=== PATIENT | male | born 1975 | race Caucasian/White ===

== ENCOUNTER 2017-11-12 14:16 | Emergency (ER) | payer MEDICAID, SELFPAY ==
[2017-11-12 14:21] VITALS: BP 132/71; PULSE 114; RESP 18; TEMP 37.5; O2SAT 94; BMI 24.3
--- NOTE | 2017-11-12 14:45 | ED.DCSUM_ITS ---
- ER Visit Summary Date of Service: 11/12/17 Chief Complaint: Wound check History of Present Illness: The patient is a 42 M who had a repair of a prior neck fusion and a L2/L3 discectomy by Dr. Cornell at [facility] 6 days ago. He was discharged from hospital 2 days ago. Reports that he has been improving since the surgery. States that his drop foot has improved. The tingling and burning in his fingers has resolved. Reports he has neck pain that is 2 out of 10 currently and 10 out of 10 at worst. Is back pain is 2 out of 10 currently and 4 out of 10 at worst. Patient reports that he is here today because his family noticed that he had drainage from the inferior portion of his lumbar incision. He denies any complaints. No fever, chills, nausea, vomiting, or other constitutional symptoms. Physical Examination: Vitals: Stable. Afebrile. General: Well-nourished and well-developed. Head: Normocephalic atraumatic. Neck: Midline incision is clean, dry, and intact. There are dk with minimal surrounding erythema. There is no induration or fluctuance. Cardiovascular: Regular rate and rhythm. No murmurs. Respiratory: No respiratory distress. Clear to auscultation bilaterally. Abdominal: Soft, nontender, nondistended, normal bowel sounds. No guarding, rebound, or peritoneal signs. Back: Lumbar incision has mild diffuse soft tissue swelling surrounding it. There is no induration, erythema, or fluctuance. The incision itself is clean, dry, and intact. There is a small amount of serosanguineous fluid on the dressing. I am unable to express any drainage from the wound. Extremities: Nontender, no edema. Skin: Normal color, no rash. Neurologic: Alert and oriented ?3. Cranial nerves II through XII are intact. Normal strength and sensation. Psych: Normal affect. Emergency Department Course and Treatment: Patient is resting comfortably. He does not have any signs of infection on exam. He does not have any symptoms of infection by history. Treatment Plan: He will be discharged instructions to follow-up with his surgeon in 3-5 days for another exam. Return to the emergency department for any worsening symptoms. Disposition: To home in improved and stable condition. Impression: 1. Postop day #6 status post neck and back surgery. 2. Wound check. This note was generated with Dragon dictation software. It may contain incorrect words, spelling, and punctuation that were not noted in review of the chart prior to signing ED Disposition - Plan for ED Patient: Disposition: Home or Assisted Living Chief Complaint: Wound Check Instructions: ED Wound Check Post Op No Infec Referrals: Doctor,Your [STAFF PHYSICIAN] - 3-5 Days if not improving
[2017-11-12 15:05] VITALS: BP 121/68; PULSE 10; RESP 16; O2SAT 95
== END 2017-11-12 15:06 | disposition home or self-care (01) ==
PROVIDERS: Emergency Provider Emergency Medicine
DX: Z48.01 Encounter for change or removal of surgical wound dressing (principal); Z98.1 Arthrodesis status; Z72.0 Tobacco use
CPT/HCPCS: 99284

== ENCOUNTER 2018-04-14 12:38 | Emergency (ER) | payer MEDICAID, SELFPAY ==
[2018-04-14 12:38] VITALS: BP 113/69; PULSE 98; RESP 16; TEMP 36.5; O2SAT 98; BMI 24.2
[2018-04-14 12:51] VITALS: PULSE 98; RESP 18; TEMP 36.8; O2SAT 96
--- NOTE | 2018-04-14 12:51 | RAD_ITS ---
STUDY: X-RAY - RIGHT FOOT CLINICAL: Male, 43 years old. Rolled ankle, pain and discoloration at base of toes. TECHNIQUE: 3 view(s) of the foot. COMPARISON: None. FINDINGS: Normal talus, calcaneus, and tarsal bones. Normal visualized subtalar, talonavicular, calcaneocuboid, tarsal and tarsometatarsal articulations. A bifid os perineum seen lateral to the calcaneocuboid joint space. Normal metatarsi. Normal metatarsophalangeal joint of the great toe. Normal tibial and fibular sesamoid bones. Normal interphalangeal joint of the great toe. Normal phalanges of the great toe. Normal second through fifth metatarsophalangeal joints. Normal interphalangeal joints and phalanges of the lesser toes. There is minor soft tissue swelling in the forefoot. There is no demonstrated fracture. RAD/Foot min 3 Views IMPRESSION: No acute fracture of the right foot. Electronically Signed: Steven Dobbins MD at 14:03 EDT , Service support ,
--- NOTE | 2018-04-14 12:54 | ED.DCSUM_ITS ---
- ER Visit Summary Date of Service: 04/14/18 Chief Complaint: [] Right ankle injury a few days ago tripped turned ankle History of Present Illness: The patient is a 43 M [] history for upper back neck surgery, a few days ago he twisted his ankle walking down some steps has pain lateral to the ankle no other complaints no other injury his health has been stable he sees an orthopedic surgeon at [facility] Physical Examination: [] Is contusion and bruising to the lateral ankle right his foot has mild pain he is able dorsi and plantarflex Achilles, no pain of the calcaneus the tib-fib knee hip are unremarkable skin is intact strong pulses neurovascular function normal the rest exams unremarkable Test Results: [] Emergency Department Course and Treatment: [] X-ray pain management X-ray shows nothing acute he cannot take nonsteroidals he was given one [place] will discharge on 4 [place] [employer] crutches ice elevation of follow-up his [facility] orthopedic surgeons in the next few days he has been instructed in the concept of occult injury and the need for follow-up Treatment Plan: [] Disposition: [] Home stable Impression: [] Acute right ankle injury This note was generated with [employer] dictation software. It may contain incorrect words, spelling, and punctuation that were not noted in review of the chart prior to signing ED Disposition - Plan for ED Patient: Chief Complaint: Lower Extremity Injury Referrals: Care Physician,No Primary [Primary Care Provider] -
[2018-04-14 12:58] VITALS: BP 104/67; PULSE 89; RESP 18; O2SAT 97
--- NOTE | 2018-04-14 13:08 | RAD_ITS ---
STUDY: X-RAY - RIGHT ANKLE REASON FOR EXAM: Male, 43 years old. Pain and lateral swelling after injury. TECHNIQUE: 3 view(s) of the ankle. COMPARISON: None. FINDINGS: Normal visualized distal tibia and fibula. Normal medial and lateral malleoli. Normal tibiotalar articulation and ankle mortise. There is a small enthesophyte involving the posterior superior calcaneus at the site of insertion of the Achilles tendon. The visualized subtalar, talonavicular, calcaneocuboid and tarsal articulations are normal. There is no demonstrated fracture. There is mild lateral soft tissue swelling in the distal lower leg and ankle. RAD/Ankle min 3 Views IMPRESSION: Mild lateral soft tissue swelling. No demonstrated acute fracture. Electronically Signed: Steven Dobbins MD at 13:21 EDT , Service support ,
--- NOTE | 2018-04-14 14:17 | DCINST.ED_ITS ---
ED Disposition - Plan for ED Patient: Chief Complaint: Lower Extremity Injury Instructions: ED Sprain Ankle W X Ray Prescriptions: Hydrocodone Bitart/Apap 5-325 [[place] 5MG-325MG] 1 tab PO Q4H PRN PRN 2 Days #7 tab PRN Reason: Pain Referrals: Care Physician,No Primary [Primary Care Provider] -
[2018-04-14] MEDS: HYDROcodone Bitartrate/Apap 5/325 Tablet PO (14:30)
[2018-04-14 14:53] VITALS: PULSE 80; RESP 16; O2SAT 100
== END 2018-04-14 14:45 | disposition home or self-care (01) ==
PROVIDERS: Emergency Provider Emergency Medicine
DX: S99.911A Unspecified injury of right ankle, initial encounter (principal); W10.9XXA Fall (on) (from) unspecified stairs and steps, initial encounter; Y93.01 Activity, walking, marching and hiking; Y92.9 Unspecified place or not applicable
CPT/HCPCS: 73610; 73630; 99284

== ENCOUNTER 2019-05-22 17:14 | Emergency (ER) | payer MEDICAID, SELFPAY ==
[2019-05-22 17:15] VITALS: BP 134/81; PULSE 102; RESP 16; TEMP 36.6; O2SAT 98; BMI 30.8
[2019-05-22 17:32] VITALS: RESP 16
--- NOTE | 2019-05-22 17:48 | CT_ITS ---
STUDY: CT ABDOMEN AND PELVIS WITHOUT CONTRAST REASON FOR EXAM: Male, 44 years old. Right flank pain. History of prior appendectomy. RADIATION DOSAGE (If Supplied By Facility): CTDIvol = ( 14.63 ) mGy, DLP = ( 761.52 ) mGycm TECHNIQUE: Transaxial images were obtained from the dome of the diaphragm to the symphysis pubis without oral contrast, and without intravenous contrast. Sagittal and coronal images were reconstructed. Individualized dose optimization techniques were used for this CT. COMPARISON: CT of the abdomen and pelvis, June 29, 2014. FINDINGS: The visualized lung bases are unremarkable. The visualized portions of the heart are within normal limits. Normal liver. Normal gallbladder and extrahepatic biliary system. Normal spleen. Normal pancreas. Normal bilateral adrenal glands. There are multiple small nonobstructing calculi in the upper pole calyces of the right kidney. The largest measures 3 mm in size. Normal right ureter. There are nonobstructing left renal calculi in the mid and lower calyces. The largest measures 3 mm. There is no hydronephrosis. Normal left ureter. Normal visualized stomach. Normal small intestine. Normal colon. There is non-visualization of the appendix. Normal abdominal aorta. Normal inferior vena cava. Normal retroperitoneum. Normal urinary bladder. Normal prostate. No pelvic lymphadenopathy. No free air or free fluid is seen within the peritoneal cavity. Umbilical hernia of omental fat. The abdominal wall is otherwise unremarkable. There are diffuse degenerative changes of the visualized lumbar spine. There is flattening of the lumbar lordosis. There is evidence of L5 laminectomy. CT/Abdomen/Pelvis without Cont IMPRESSION: 1. Multiple bilateral renal calculi. There is resolution of the right UVJ calculus and mild obstructive uropathy seen on the prior study. 2. No evidence of acute intra-abdominal or pelvic abnormality. 3. Stable degenerative changes of the lumbar spine Electronically Signed: Jame Crowley DO at 18:28 EDT Tel [phone], Service support ,
--- NOTE | 2019-05-22 17:49 | ED.DCSUM_ITS ---
History of Present Illness Chief Complaint: Flank Pain Informant: Patient Onset: Today Context: Gradual Onset Timing: Continuous, Waxes and wanes Narrative: Patient is a 44-year-old male with history of kidney stones x4, back surgery and neck surgery presenting with right-sided flank pain. Patient states it started today. It is in his right upper back and radiates into his lower abdomen/groin. Patient states it feels like there is a pressure or fullness in his right back with intermittent episodes of sharpness. He also feels that he is only dribbling when he urinates. He denies any pain when he urinates. He denies any abnormal penile discharge or testicular pain. Patient states that this does feel similar prior kidney stones. He states that he never required instrumentation and always passed stones on his own. He states he did not take anything for pain at home. He states he tried to tough it out at home but the pain was too much so he came into the emergency room. He had episodes of vomiting. His symptoms do seem to be worse when he lays on his side and better when he lays on his back or his stomach. He denies any hematemesis. He has had normal bowel movements. He did have an episode of sweating earlier today. He denies any fever. He denies any other complaints at this time. Past Medical History - Allergies and Home Meds Allergies/Adverse Reactions: Allergies bismuth subsalicylate [From Pepto-Bismol] Allergy (Verified 05/22/19 17:15) HEAT RASH latex Allergy (Verified 05/22/19 17:15) Rash Penicillins Allergy (Verified 05/22/19 17:15) HEAT RASH Primary Care Physician: Care Physician,No Primary [Primary Care Provider] - Smoking Status: Current every day smoker Review of Systems All systems negative except as indicated General: Reports: Chills, Sweats Gastrointestinal: Reports: Abdominal pain - right flank, Nausea, Vomiting Genitourinary: Reports: - - decreased urination Physical Exam Vital Signs/Narrative: Vital Signs Temp Pulse Resp BP Pulse Ox 05/22/19 17:32 16 05/22/19 17:15 97.9 F 102 H 16 134/81 H 98 Inital Vital Signs reviewed: Yes General: Well nourished, Well developed, No Acute Distress Head: Normocephalic, Atraumatic Eyes: Perrl, EOMI ENT: Moist mucous membranes, No rhinorrhea Neck: Supple, Nontender Cardiovascular: Regular rate, Regular rhythm, No murmurs Respiratory: No distress, CTA bilaterally, Chest nontender Abdomen: Soft, Nontender, Nondistended, Normal bowel sounds. Negative for: Guarding Back: Nontender, Normal Inspection. Negative for: CVA tenderness Extremities: Nontender, No edema Skin: Normal color, No rash Neurological: Alert, Oriented x3, Cranial nerves II-XII grossly intact, Normal Strength, Normal Sensation Psychological: Normal affect, Normal Mood Diagnostic/Tx/Re-eval Clinical Impression(s) from Imaging Studies Abdomen/Pelvis CT 05/22/19 17:48 IMPRESSION: 1. Multiple bilateral renal calculi. There is resolution of the right UVJ calculus and mild obstructive uropathy seen on the prior study. 2. No evidence of acute intra-abdominal or pelvic abnormality. 3. Stable degenerative changes of the lumbar spine Electronically Signed: Jame Crowley DO at 18:28 EDT Tel [phone], Service support , Laboratory Data 05/22/19 05/22/19 05/22/19 17:50 17:50 18:46 WBC 8.3 RBC 4.62 Hgb 14.7 Hct 44.1 MCV 95.5 H MCH 31.8 MCHC 33.3 RDW Std Deviation 45.6 H RDW Coeff of Darvin 13.0 Plt Count 277 MPV 8.9 Immature Gran % (Auto) 0.200 Neut % (Auto) 79.6 H Lymph % (Auto) 13.7 L Weakley % (Auto) 5.2 Eos % (Auto) 1.3 Baso % (Auto) 0.0 Absolute Neuts (auto) 6.6 Absolute Lymphs (auto) 1.14 Nucleated RBC % 0 Sodium 140 Potassium 3.6 Chloride 109 H Carbon Dioxide 26.0 Anion Gap 5 BUN 14 Creatinine 0.88 Estim Creat Clear Calc 104.72 Est GFR (MDRD) Af Amer 122 Est GFR (MDRD) Non-Af 101 BUN/Creatinine Ratio 15.9 Glucose 101 Calcium 8.4 L Total Bilirubin 0.40 AST 24 ALT 38 Alkaline Phosphatase 100 Total Protein 7.6 Albumin 3.5 Globulin 4.1 Albumin/Globulin Ratio 0.9 Lipase 62 L Urine Color Yellow Urine Clarity Sl. Cloudy Urine pH 6.0 Ur Specific [place] 1.015 Urine Protein Negative Urine Glucose (UA) Normal Urine Ketones Negative Urine Occult Blood 25 H Urine Nitrite Negative Urine Bilirubin Negative Urine Urobilinogen Normal Ur Leukocyte Esterase 100 H Urine RBC 10-25 SEEN Urine WBC 25-50 SEEN Ur Squamous Epith Cells 0-5 SEEN Urine Bacteria 0 SEEN Urine Mucus 0 SEEN Diagnostic Data Abdomen/Pelvis CT 05/22/19 17:48 IMPRESSION: 1. Multiple bilateral renal calculi. There is resolution of the right UVJ calculus and mild obstructive uropathy seen on the prior study. 2. No evidence of acute intra-abdominal or pelvic abnormality. 3. Stable degenerative changes of the lumbar spine Electronically Signed: Jame Crowley DO at 18:28 EDT Tel [phone], Service support , - Medical Decision Making [place] is evaluated for right flank pain. He appears nontoxic and in no acute distress. He is mildly tachycardic. Patient is given IV fluids, Zofran and morphine. He has improvement of his symptoms with this. Urinalysis does show leukoesterase and some blood. He has normal kidney function. CT does not show current ureterolithiasis. It is possible he recently passed a stone. Patient is given a dose of IV Toradol. Patient is encouraged to follow-up with a primary care physician. He states he does not have one currently and he will be referred to one. He is discharged home with a course of Zofran and Motrin for pain control. Patient is well-appearing on reevaluation and agreeable with this plan. Patient is counseled on signs and symptoms requiring return to the emergency room. Patient verbalizes agreement and understand this plan. Patient discharged home in stable and improved condition. ED Disposition - Plan for ED Patient: Disposition: Home or Assisted Living Diagnosis: Right flank pain Instructions: KIDNEY STONE, Passed Prescriptions: Ibuprofen [Motrin] 600 mg PO Q8H PRN PRN #20 tab PRN Reason: Pain Prescription Printed Ondansetron [Zofran Odt] 4 mg PO Q8H PRN PRN #10 tab PRN Reason: Nausea Prescription Printed Referrals: Janice Tang MD [COURTESY STAFF PHYSICIAN] - Additional Instructions: Drink Plenty of fluids. Return to emergency room if you develop worsening symptoms. It is very important he follow-up with a primary care doctor.
[2019-05-22] MEDS: Ondansetron 4 MG/2 ML Vial IV (17:59)
[2019-05-22] MEDS: 0.9% Normal Saline 1,000 ML 1000 ML IV (17:59)
[2019-05-22 18:00] LABS: Absolute Lymphocyte Count 1.14 X10^3/uL (0.83-4.51); Absolute Neutrophil Count 6.6 X10^3/uL (2.0-7.7); Eosinophil# 0.11 X10^3/uL; Eosinophils% 1.3 % (0-5); Hematocrit 44.1 % (40-54); Hemoglobin 14.7 g/dL (13.0-16.5); Lymphocyte # 1.14 X10^3/ul (4.0); Lymphocyte % 13.7 % (19-41); Mean Corp Hgb Conc 33.3 g/dL (32-36); Mean Corpuscular Hgb 31.8 pg (27.0-32.0); Mean Corpuscular Volume 95.5 fL (80-94); Mean Platelet Vol. 8.9 fl (6.2-12.0); Monocyte# 0.43 X10^3/uL; Monocyte% 5.2 % (0-10); NRBC Flagged by Analyzer 0 % (0-5); Neutrophil # 6.62 X10^3/uL (2.7-7.7); Neutrophil % 79.6 % (47-70); Platelet Count 277 K/mm3 (150-450); RBC Distribution Width SD 45.6 fl (35.1-43.9); Red Blood Count 4.62 M/mm3 (4.6-6.2); White Blood Count 8.3 K/mm3 (4.4-11.0)
[2019-05-22] MEDS: Morphine 4 MG/ML Syringe IV (18:01)
[2019-05-22 18:22] LABS: ALB/GLOB Ratio 0.9 RATIO (0.9-2.4); AST(SGOT) 24 U/L (15-37); Alanine Aminotransfer ALT/SGPT 38 U/L (16-61); Albumin, Serum 3.5 g/dL (3.2-5.0); Alkaline Phosphatase 100 U/L (45-117); Anion Gap 5 (5-15); BUN 14 mg/dL (7-18); BUN/Creat Ratio 15.9 RATIO (10-20); Calcium,Total 8.4 mg/dL (8.5-10.1); Chloride 109 mmol/L (98-107); Creatinine, Serum 0.88 mg/dL (0.70-1.30); EST Glomerular Filtration Rate 101 mL/min (>60); Est Glom Filt Rate - Afr Amer 122 mL/min (>60); Estimated Creatinine Clearance 104.72 ml/min; Globulin 4.1 g/dL (2.2-4.2); Glucose 101 mg/dL (74-106); Lipase 62 U/L (73-393); Potassium 3.6 mmol/L (3.5-5.1); Protein, Total 7.6 g/dL (6.4-8.2); Sodium Level 140 mmol/L (136-145)
[2019-05-22 18:55] LABS: Bacteria 0 SEEN /hpf (None Seen); Mucous, Urine 0 SEEN /hpf (<or=2+)
[2019-05-22 19:03] LABS: Color, Urine Yellow (Yellow); Glucose, Dipstick Normal (Normal); Ketone-Dipstick Negative (Negative); Leukocyte Esterase-Dipstick 100 /ul (Negative); Nitrite-Dipstick Negative (Negative); Occult Blood-Urine 25 /ul (Negative); Protein-Dipstick Negative (Negative); Specific Gravity, Urine 1.015 (1.002-1.030); Urine Bilirubin Dipstick Negative (Negative); Urine Clarity Sl. Cloudy (Clear); Urine Urobilinogen Normal (Normal)
[2019-05-22 19:12] LABS: Red Blood Cells-Urine 10-25 SEEN /hpf (0-5); White Blood Cells 25-50 SEEN /hpf (0-5)
[2019-05-22 19:13] LABS: Squamous Epithelial Cells - UA 0-5 SEEN /hpf (0-5)
[2019-05-22] MEDS: Ketorolac 15 MG/ML Vial IV (19:39)
[2019-05-22 19:41] VITALS: RESP 16
[2019-05-22 20:19] VITALS: BP 124/70; PULSE 72; RESP 16; O2SAT 100
== END 2019-05-22 20:19 | disposition home or self-care (01) ==
PROVIDERS: Emergency Provider Emergency Medicine
DX: R10.31 Right lower quadrant pain (principal); F17.200 Nicotine dependence, unspecified, uncomplicated; Z87.442 Personal history of urinary calculi
CPT/HCPCS: 74176; 80053; 81001; 83690; 85025; 96361; 96374; 96375; 99283; J7030; A4216; J2405

== ENCOUNTER 2019-06-04 16:36 | Emergency (ER) | payer MEDICAID, SELFPAY ==
[2019-06-04 16:37] VITALS: BP 129/75; PULSE 96; RESP 16; TEMP 36.2; O2SAT 99; BMI 31.6
[2019-06-04 17:46] VITALS: O2SAT 97
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
--- NOTE | 2019-06-04 17:50 | RAD_ITS ---
STUDY: X-RAY - RIGHT FOOT CLINICAL: Male, 44 years old. Pain TECHNIQUE: 3 view(s) of the foot. COMPARISON: None. FINDINGS: Normal talus, calcaneus, and tarsal bones. Normal visualized subtalar, talonavicular, calcaneocuboid, tarsal and tarsometatarsal articulations. Normal metatarsi. Normal metatarsophalangeal joint of the great toe. Normal tibial and fibular sesamoid bones. Normal interphalangeal joint of the great toe. Normal phalanges of the great toe. Normal second through fifth metatarsophalangeal joints. Normal interphalangeal joints and phalanges of the lesser toes. The soft tissue structures are unremarkable. RAD/Foot min 3 Views IMPRESSION: Normal x-ray examination of the foot. Electronically Signed: Marciano Olivares DO at 19:10 EDT Tel [phone], Service support ,
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
[2019-06-04] MEDS: HYDROcodone Bitartrate/Apap 5/325 Tablet PO (17:59)
[2019-06-04] MEDS: Diphth,Pertuss(Acell),Tet Vac 0.5 ML Vial IM (19:04)
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
== END 2019-06-04 19:40 | disposition home or self-care (01) ==
LOC: ED 18:00
PROVIDERS: Emergency Provider Emergency Medicine
DX: S40.012A Contusion of left shoulder, initial encounter (principal); S80.11XA Contusion of right lower leg, initial encounter; V09.9XXA Pedestrian injured in unspecified transport accident, initial encounter; Y93.89 Activity, other specified; Z72.0 Tobacco use
CPT/HCPCS: 71250; 72125; 73030; 73140; 73564; 73630; 90471; 90715; 99283

== ENCOUNTER 2022-04-03 18:42 | Emergency (ER) | payer MEDICAID, SELFPAY ==
[2022-04-03 18:43] VITALS: BP 116/84; PULSE 120; RESP 18; TEMP 36.4; O2SAT 97; BMI 26.3
--- NOTE | 2022-04-03 18:55 | EX.ED.DYSGE1 ---
HPI History of Present Illness Chief Complaint: Abscess Detail of Chief Complaint: Wound to right posterior thigh x4 5 days Informant: patient Narrative Narrative: Patient presents to the emergency department with a wound to the right posterior thigh x4 5 days. Patient thinks that maybe he was bitten by a brown recluse spider although he never did see a spider. Patient states that he had fever at home up to 104. Patient states that the wound opened up and drained some green debris. He had leftover clindamycin from a dental infection that he has we start taking clindamycin twice a day. Patient was concerned about possibly getting septic. Patient does admit to occasional methamphetamine use that he snorts but does not use IV drugs. Patient denies injecting into the wound. Prior similar symptoms: No PFSH PFSH Home Medications gabapentin 300 mg capsule 300 mg PO DAILY 05/22/19 [History Last Taken 06/04/19] ibuprofen 600 mg tablet 600 mg PO Q8H PRN PRN Pain #20 tabs 05/22/19 [Rx Last Taken 06/03/19] clindamycin HCl 300 mg capsule (Cleocin HCl) 300 mg PO Q6H #40 CAPSULES 04/03/22 [Rx Last Taken Unknown] Allergy/AdvReac Type Severity Reaction Status Date / Time bismuth subsalicylate Allergy HEAT RASH Verified 04/03/22 18:42 [From Pepto-Bismol] latex Allergy Rash Verified 04/03/22 18:42 Penicillins Allergy HEAT RASH Verified 04/03/22 18:42 Social History Smoking Status: Current every day smoker tobacco type: cigarettes ROS ROS ED Review of Systems ROS Unobtainable: other Constitutional Constitutional ED: Reports lethargy; Denies chills, fever(s), sweats or weight loss Eyes Eyes: Denies blurry vision, change in vision or diplopia ENT ENT ED: Denies rhinorrhea or sore throat Cardiovascular Cardiovascular: Reports chest pain and racing heartbeat; Denies orthopnea Respiratory/Chest Respiratory/Chest: Reports dyspnea and dyspnea on exertion; Denies cough, orthopnea or sputum Gastrointestinal Gastrointestinal: Denies abdominal pain, diarrhea, nausea or vomiting Genitourinary Genitourinary ED: Denies dysuria, hematuria or urinary frequency Musculoskeletal Musculoskeletal: Denies arthralgias, back pain, myalgias or neck pain Integumentary Reports other Details: Wound to the right posterior thigh ; Denies abscess, Abrasions or rash Neurologic Neurologic: Denies headache(s) or weakness Psychiatric Psychiatric: Denies anxiety, depression or suicidal thoughts Endocrine Endocrinology: Denies polydipsia, polyphagia or polyuria Hematologic/Lymphatic Hematologic/Lymphatic: Denies easy bleeding, easy bruising or lymphadenopathy Allergic/Immunologic Allergic/Immunologic ED: Denies mouth swelling, tongue swelling or urticaria EXAM Physical Exam Const Vital Signs: 04/03/22 18:43 Temperature 97.5 F L Temperature Source Temporal Pulse Rate 120 H Respiratory Rate 18 Blood Pressure 116/84 H Blood Pressure Mean 94 Pulse Ox 97 Oxygen Delivery Method Room Air Positive well nourished and well developed General Appearance ED: well developed and NAD HEENT Reports TM's clear and moist mucous membranes normocephalic and atraumatic; Negative for trauma or tenderness Tympanic Membrane ED: Yes TM's clear Eyes PERRL and EOMs intact bilaterally General Eye ED: Negative for pale conjunctiva or scleral icterus Neck no lymphadenopathy, supple and no JVD General: Negative for tenderness Chest Wall inspection of chest normal and palpation of chest normal Chest: Negative for tenderness Resp normal respiratory effort and clear to auscultation bilaterally Effort and Inspection: Negative for respiratory distress or pain with movement Auscultation: Negative for rhonchi, wheezes or diminished lung sounds Cardio regular rate, regular rhythm, S1 normal heart sound, S2 normal heart sound and no murmurs Peripheral Pulses: pulses 2+ throughout GI normal to inspection, nondistended, normoactive bowel sounds, soft to palpation, non-tender, non-distended and no masses Back/Spine no CVA tenderness and no thoracic nor lumbar tenderness Extremity Extremity Narrative: Right posterior thigh-patient has a small wound/skin defect that is relatively superficial measuring approximately 1 cm in diameter. There is no purulent drainage noted at this time. There is no significant cellulitic changes noted. Underneath the subcutaneous tissue proximal to this there is a some firm induration measuring approximately 2 cm in diameter. General Extremety ED: Negative for edema General Extremity: Negative for edema Neuro oriented x3, CN's II-XII intact bilaterally, no sensory deficits noted and gait normal Sensorium / Orientation: awake, alert, oriented to person, oriented to place and oriented to time Motor Exam: strength 5/5 throughout and strength abnormal Psych mental status grossly normal Skin no rashes or lesions noted and no wounds MDM MDM MDM Narrative Medical decision making narrative: I did send off a wound culture. Patient to continue with clindamycin and I will give him enough to have clindamycin 4 times a day for 10 days. The wound is already drained and I do not feel there is any other indication to perform further I&D at this time. Patient is afebrile and otherwise looks well. Patient will be given referral to primary care physician for follow-up. He is advised to return if increasing pain, redness, swelling, fever, or condition worsen anyway. Suspect patient likely had an abscess that opened up and drained and is well on its way to healing. Discharge Plan Triage Chief Complaint: Abscess ED Provider: Yolis Reynoso Dx/Rx/DC Orders Instructions: ED Abscess Antibiotic Treatment Only Prescriptions: New clindamycin HCl [Cleocin HCl] 300 MG capsule 300 mg PO Q6H Qty: 40 0RF No Action gabapentin 300 MG capsule 300 mg PO DAILY Label Comments: take 1 capsule by mouth EVERY NIGHT AND GRADUALLY INCREASE TO THREE TIMES A DAY ibuprofen 600 MG tablet 600 mg PO Q8H PRN PRN (Reason: Pain) Qty: 20 0RF Primary Care Provider: Care Physician,No Primary Referrals: Luis Alberto Contreras MD [STAFF PHYSICIAN] - 3-5 Days Care Physician,No Primary [Primary Care Provider] - Disposition Disposition: Home, Self Care
== END 2022-04-03 19:23 | disposition home or self-care (01) ==
PROVIDERS: Emergency Provider Emergency Medicine; Visit Provider Emergency Medicine
DX: L02.415 Cutaneous abscess of right lower limb (principal); F17.210 Nicotine dependence, cigarettes, uncomplicated
CPT/HCPCS: 87070; 87077; 87186; 87205; 99283

== ENCOUNTER 2022-06-06 12:11 | Emergency (ER) | payer MEDICAID, SELFPAY ==
[2022-06-06 12:11] VITALS: BP 136/94; PULSE 89; RESP 16; TEMP 36.6; O2SAT 100; BMI 26.6
--- NOTE | 2022-06-06 12:56 | EDS_ITS ---
HPI HPI - GI History of Present Illness Chief Complaint: Flank Pain Informant: patient Abdominal Pain/Flank Pain Onset: Today Context: Sudden Onset Timing: Intermittent Location: Right Flank Current Severity: Gone Maximum Severity: Moderate Worsened by: Nothing Relieved by: Nothing Nausea/Vomiting/Emesis GI Symptom: Negative for Nausea or Vomiting Diarrhea/Melena/Hematochezia GI Symptom: Negative for Diarrhea, Melena or Hematochezia Associated Symptoms Associated Symptoms: Negative for Dysuria, Frequency, Hematuria or Urgency Narrative Narrative: 47-year-old male history of prior kidney stones x5. He has never needed any of those surgically removed. Today an hour or so ago he developed right flank pain radiating to his groin. He believes he may have passed a stone into his bladder. Currently he is pain-free. Denies any recent illness. Denies any nausea vomiting or diarrhea. Denies any fever or chills. No hematuria or dysuria. Currently is pain-free. Prior similar symptoms: Yes Recent Illness/Hospitalization: No PFSH PFSH Medical History History of kidney stones Home Medications hydrocodone-acetaminophen 5-325mg 5mg-325mg 1 tab PO Q4H PRN pain 4 days #14 tabs 06/06/22 [Rx Last Taken Unknown] Allergy/AdvReac Type Severity Reaction Status Date / Time bismuth subsalicylate Allergy HEAT RASH Verified 06/06/22 12:16 [From Pepto-Bismol] latex Allergy Rash Verified 06/06/22 12:16 Penicillins Allergy HEAT RASH Verified 06/06/22 12:16 Surgical History Hx of neck surgery Social History Smoking Status: Current every day smoker tobacco type: cigarettes ROS ROS ED ROS Narrative Right flank pain resolved. Review of Systems ROS Unobtainable: Denies due to encephalopathy Constitutional Constitutional ED: Denies chills or fever(s) ENT ENT ED: Denies ear pain Cardiovascular Cardiovascular: Denies chest pain Respiratory/Chest Respiratory/Chest: Denies cough or dyspnea Gastrointestinal Gastrointestinal: Reports abdominal pain; Denies constipation, diarrhea, melena, nausea or vomiting Genitourinary Genitourinary ED: Denies dysuria or hematuria Musculoskeletal Musculoskeletal: Denies arthralgias Integumentary Denies abscess Neurologic Neurologic: Denies headache(s) Psychiatric Psychiatric: Denies anxiety Endocrine Endocrinology: Denies polydipsia Hematologic/Lymphatic Hematologic/Lymphatic: Denies easy bleeding Allergic/Immunologic Allergic/Immunologic ED: Denies mouth swelling EXAM Physical Exam Narrative Exam Narrative: 47-year-old male no acute distress. Currently symptom-free. Vital signs stable afebrile. HEENT exam unremarkable. Neck nontender. Lungs are clear. Heart regular rhythm no murmur. Abdomen is soft nontender normal bowel sounds no peritoneal signs. Back nontender. Moving all 4 extremities. Neurovascularly intact. Const Vital Signs: 06/06/22 12:11 06/06/22 12:17 Temperature 97.8 F Temperature Source Oral Pulse Rate 89 Respiratory Rate 16 Respiratory Effort Normal Respiratory Pattern Normal Blood Pressure 136/94 H Blood Pressure Mean 108 Pulse Ox 100 Oxygen Delivery Method Room Air Positive well nourished and well developed; Negative for obese, cachectic, contractures or unkempt General Appearance ED: well developed and NAD; Negative for unkempt, cachectic, contractures, pallor or other Nutritional Appearance: Negative for cachectic or obese HEENT Reports moist mucous membranes normocephalic and atraumatic; Negative for trauma or tenderness Eyes EOMs intact bilaterally General Eye ED: Negative for pale conjunctiva or scleral icterus Neck no lymphadenopathy, supple and no JVD General: Negative for tenderness Lymph Lymphatic: Negative for other Resp normal respiratory effort and clear to auscultation bilaterally Effort and Inspection: Negative for respiratory distress Auscultation: Negative for rales, rhonchi or wheezes Cardio regular rate, regular rhythm, S1 normal heart sound, S2 normal heart sound and no murmurs Rate: Negative for bradycardia Rhythm: Negative for abnormal rhythm GI non-tender, non-distended and no masses Inspection: Negative for abdominal distention Auscultation: normoactive bowel sounds; Negative for hyperactive bowel sounds Palpation: soft; Negative for tender, guarding, rigid, hernia, mass, pulsatile mass or rebound tenderness present Back/Spine no CVA tenderness General Back: Negative for CVA tenderness Cervical Spine: Negative for cervical spine tenderness Thoracic Spine / Upper Back: Negative for thoracic spinal tenderness Lumbar Spine / Lower Back: Negative for lumbar spinal tenderness Extremity full ROM General Extremety ED: Negative for edema or tenderness General Extremity: Negative for edema Neuro CN's II-XII intact bilaterally and moves all extremities Sensorium / Orientation: alert, oriented to person, oriented to place and oriented to time; Negative for orientation impaired, confused, lethargic or stuporous Motor Exam: strength 5/5 throughout Psych mental status grossly normal and thought process normal Appearance: Negative for unkempt Attitude: No agitated Mood & Affect: Negative for depressed, anxious or tearful Skin no wounds General Skin Exam: Negative for jaundice or pallor Lesions: no lesions Rashes: no rashes Trauma: Negative for abrasion Nails: Negative for discolored MDM MDM MDM Narrative Medical decision making narrative: 47-year-old right flank pain with a history of prior kidney stones. Currently is pain-free. CAT scan and urinalysis being obtained. He does not need any medications at this time. Repeat exam at 3:18 PM patient doing well. Pain-free. We went over his test results of CAT scan and urine will be discharged home. [place] for pain as needed. And Motrin. Lab Data Attestation: I reviewed the patient's lab results. Lab results narrative: Urinalysis shows 250 occult blood 25-50 red cells on microscopic. No white cells, no nitrates and no bacteria. CAT scan shows a proximal 3 mm calculus in the right ureter with mild hydronephrosis and hydroureter. Multiple bilateral renal stones. Labs: Laboratory Results - last 24 hr 06/06/22 13:40 Urine Color Yellow Urine Clarity Sl. Cloudy Urine pH 6.0 Ur Specific [place] 1.015 Urine Protein 30 H Urine Glucose (UA) Normal Urine Ketones Negative Urine Occult Blood 250 H Urine Nitrite Negative Urine Bilirubin Negative Urine Urobilinogen Normal Ur Leukocyte Esterase 25 H Urine RBC 25-50 SEEN Urine WBC 0 SEEN Ur Squamous Epith Cells 0 SEEN Urine Bacteria 0 SEEN Urine Mucus 0 SEEN Radiography Diagnostic Testing: Clinical Impression(s) from Imaging Studies Abdomen/Pelvis CT 06/06/22 13:02 IMPRESSION: 3 mm calculus in the proximal portion of the right ureter causing mild degree of right hydronephrosis and proximal right hydroureter. Multiple bilateral nonobstructive intrarenal calculi. Electronically Signed: Jay Palomo MD at 13:34 EDT , Discharge Plan Triage Chief Complaint: Flank Pain ED Provider: George Covarrubias Dx/Rx/DC Orders Clinical Impression: Acute right flank pain, Right kidney stone Instructions: ED Kidney Stone w/ Colic Prescriptions: New hydrocodone-acetaminophen 5-325 mg tablet 1 tab PO Q4H PRN (Reason: pain) 4 Days Qty: 14 0RF Primary Care Provider: Care Physician,No Primary Referrals: Tonny Henson MD [Med Staff - Active Staff] - As Needed Care Physician,No Primary [Primary Care Provider] - Activity Restrictions/Additional Instructions: Plenty of fluids and rest. You have a 3 mm stone on the right that should pass. [place] for pain and Motrin. Return if intractable pain, fever or intractable vomiting. Disposition Disposition: Home, Self Care
--- NOTE | 2022-06-06 13:02 | CT_ITS ---
STUDY: CT ABDOMEN AND PELVIS WITHOUT CONTRAST REASON FOR EXAM: Male, 47 years old. Right flank pain. History of kidney stones. RADIATION DOSAGE (If Supplied By Facility): CTDIvol = ( 8.32 ) mGy, DLP = ( 401.55 ) mGycm TECHNIQUE: Transaxial images were obtained from the dome of the diaphragm to the symphysis pubis without oral contrast, and without intravenous contrast. Sagittal and coronal images were reconstructed. Individualized dose optimization techniques were used for this CT. COMPARISON: Comparison is made with prior study dated 05/22/2019. FINDINGS: The visualized lung bases are unremarkable. Coronary artery calcification. Normal liver. Normal gallbladder and extrahepatic biliary system. Normal spleen. Normal pancreas. Normal bilateral adrenal glands. There are small nonobstructive bilateral intrarenal calculi. Mild degree of right hydronephrosis and proximal right hydroureter due to a 3 mm calculus in the proximal portion of the right ureter. Normal visualized stomach. Normal small intestine. Normal colon. The appendix is visualized and appears normal. Normal abdominal aorta. Normal inferior vena cava. Normal retroperitoneum. Normal urinary bladder. There is a small umbilical hernia containing fat. Straightening of the normal lumbar lordosis. Marked degree of disc space narrowing and spondylosis at the L4-L5 level. CT/Abdomen/Pelvis without Cont IMPRESSION: 3 mm calculus in the proximal portion of the right ureter causing mild degree of right hydronephrosis and proximal right hydroureter. Multiple bilateral nonobstructive intrarenal calculi. Electronically Signed: Jay Palomo MD at 13:34 EDT ,
[2022-06-06 13:48] LABS: Bacteria 0 SEEN /hpf (None Seen); Mucous, Urine 0 SEEN /hpf (<or=2+); Squamous Epithelial Cells - UA 0 SEEN /hpf (0-5); White Blood Cells 0 SEEN /hpf (0-5)
[2022-06-06 13:51] LABS: Color, Urine Yellow (Yellow); Glucose, Dipstick Normal (Normal); Ketone-Dipstick Negative (Negative); Leukocyte Esterase-Dipstick 25 /ul (Negative); Nitrite-Dipstick Negative (Negative); Occult Blood-Urine 250 /ul (Negative); Protein-Dipstick 30 mg/dl (Negative); Specific Gravity, Urine 1.015 (1.002-1.030); Urine Bilirubin Dipstick Negative (Negative); Urine Clarity Sl. Cloudy (Clear); Urine Urobilinogen Normal (Normal)
[2022-06-06 14:00] LABS: Red Blood Cells-Urine 25-50 SEEN /hpf (0-5)
== END 2022-06-06 15:21 | disposition home or self-care (01) ==
PROVIDERS: Emergency Provider Emergency Medicine; Visit Provider Emergency Medicine
DX: N13.2 Hydronephrosis with renal and ureteral calculous obstruction (principal); F17.210 Nicotine dependence, cigarettes, uncomplicated; Z87.442 Personal history of urinary calculi
CPT/HCPCS: 74176; 81001; 99285

== ENCOUNTER 2022-06-08 16:49 | Emergency (ER) | payer MEDICAID, SELFPAY ==
[2022-06-08 16:52] VITALS: BP 143/99; PULSE 84; RESP 16; TEMP 36.4; O2SAT 98; BMI 27.7
[2022-06-08 16:55] VITALS: O2SAT 98
--- NOTE | 2022-06-08 16:59 | CT_ITS ---
STUDY: CT ABDOMEN AND PELVIS WITHOUT CONTRAST REASON FOR EXAM: Male, 47 years old. right flank paii RADIATION DOSAGE (If Supplied By Facility): CTDIvol = ( 6.91 ) mGy, DLP = ( 345.51 ) mGycm TECHNIQUE: Transaxial images were obtained from the dome of the diaphragm to the symphysis pubis without oral contrast, and without intravenous contrast. Sagittal and coronal images were reconstructed. Individualized dose optimization techniques were used for this CT. COMPARISON: 06/06/2022 FINDINGS: The visualized lung bases are unremarkable. The visualized portions of the heart are within normal limits. Normal liver. Normal gallbladder and extrahepatic biliary system. Normal spleen. Normal pancreas. Normal bilateral adrenal glands. Multiple tiny nonobstructing renal calculi. Mild hydroureteronephrosis secondary to tiny calculus in the intramural portion of the ureter. Multiple tiny nonobstructing renal calculi. No evidence for renal obstruction or mass. Normal visualized stomach. Mild diffuse nonspecific ileus. No evidence for small bowel obstruction. The appendix is visualized and appears normal. Normal abdominal aorta. Normal inferior vena cava. Normal retroperitoneum. Incompletely distended thick-walled bladder likely of no significance Normal abdominal wall. Lumbar spine demonstrates degenerative changes. Lumbar spine demonstrates grade [address]/Abdomen/Pelvis without Cont IMPRESSION: Bilateral nephrolithiasis.. Mild right hydroureteronephrosis secondary to tiny calculus in the distal intramural portion of the ureter at the base of the bladder Electronically Signed: Orlando Izaguirre MD at 17:39 EDT ,
--- NOTE | 2022-06-08 17:00 | EDS_ITS ---
HPI History of Present Illness Chief Complaint: Flank Pain Detail of Chief Complaint: Right flank pain x2 days Informant: patient Onset/Context/Timing Current Severity: 06/20 Narrative Narrative: Patient presents to the emergency department complaint of right flank pain that started initially 2 days ago. Patient was seen in the emergency department here and diagnosed with a right-sided kidney stone. Patient apparently was not sent home with any pain medication. Patient states that the pain waxes and wanes in intensity. Describes it more in the posterior aspect of the lower back. Patient denies fever. Denies nausea or vomiting. He denies dysuria. Patient rates his pain a 10 out of 10. Patient has history of passing kidney stones. Prior similar symptoms: Yes PFSH PFSH Medical History History of kidney stones Home Medications hydrocodone-acetaminophen 5-325mg 5mg-325mg 1 tab PO Q4H PRN pain 4 days #14 tabs 06/06/22 [Rx Last Taken Unknown] hydrocodone-acetaminophen 5-325mg 5mg-325mg 1 tab PO Q4H PRN PRN Pain 2 days #10 TABLETS 06/08/22 [Rx Last Taken Unknown] Allergy/AdvReac Type Severity Reaction Status Date / Time bismuth subsalicylate Allergy HEAT RASH Verified 06/08/22 16:56 [From Pepto-Bismol] latex Allergy Rash Verified 06/08/22 16:56 Penicillins Allergy HEAT RASH Verified 06/08/22 16:56 Surgical History Hx of neck surgery Social History Smoking Status: Current every day smoker tobacco type: cigarettes ROS ROS ED Review of Systems ROS Unobtainable: other Constitutional Constitutional ED: Reports lethargy; Denies chills, fever(s), sweats or weight loss Eyes Eyes: Denies blurry vision, change in vision or diplopia ENT ENT ED: Denies rhinorrhea or sore throat Cardiovascular Cardiovascular: Denies chest pain, orthopnea or racing heartbeat Respiratory/Chest Respiratory/Chest: Denies cough, dyspnea, dyspnea on exertion, orthopnea or sputum Gastrointestinal Gastrointestinal: Reports abdominal pain; Denies diarrhea, nausea or vomiting Genitourinary Genitourinary ED: Denies dysuria, hematuria or urinary frequency Musculoskeletal Musculoskeletal: Reports back pain; Denies arthralgias, myalgias or neck pain Integumentary Denies abscess, Abrasions or rash Neurologic Neurologic: Denies headache(s) or weakness Psychiatric Psychiatric: Denies anxiety, depression or suicidal thoughts Endocrine Endocrinology: Denies polydipsia, polyphagia or polyuria Hematologic/Lymphatic Hematologic/Lymphatic: Denies easy bleeding, easy bruising or lymphadenopathy Allergic/Immunologic Allergic/Immunologic ED: Denies mouth swelling, tongue swelling or urticaria EXAM Physical Exam Const Vital Signs: 06/08/22 16:52 06/08/22 16:55 06/08/22 16:56 Temperature 97.6 F L Temperature Source Temporal Pulse Rate 84 Respiratory Rate 16 Respiratory Effort Normal Respiratory Pattern Normal Blood Pressure 143/99 H Blood Pressure Mean 113 Pulse Ox 98 98 Oxygen Delivery Method Room Air Room Air 06/08/22 19:11 Temperature Temperature Source Pulse Rate 87 Respiratory Rate 16 Respiratory Effort Respiratory Pattern Blood Pressure Blood Pressure Mean Pulse Ox 98 Oxygen Delivery Method Room Air Positive well nourished and well developed General Appearance ED: well developed and NAD HEENT Reports TM's clear and moist mucous membranes normocephalic and atraumatic; Negative for trauma or tenderness Tympanic Membrane ED: Yes TM's clear Eyes PERRL and EOMs intact bilaterally General Eye ED: Negative for pale conjunctiva or scleral icterus Neck no lymphadenopathy, supple and no JVD General: Negative for tenderness Chest Wall inspection of chest normal and palpation of chest normal Chest: Negative for tenderness Resp normal respiratory effort and clear to auscultation bilaterally Effort and Inspection: Negative for respiratory distress or pain with movement Auscultation: Negative for rhonchi, wheezes or diminished lung sounds Cardio regular rate, regular rhythm, S1 normal heart sound, S2 normal heart sound and no murmurs Peripheral Pulses: pulses 2+ throughout GI normal to inspection, nondistended, normoactive bowel sounds, soft to palpation, non-tender, non-distended and no masses Back/Spine no thoracic nor lumbar tenderness Back/Spine Narrative: Patient with CVA tenderness on the right. Extremity normal to inspection General Extremety ED: Negative for edema General Extremity: Negative for edema Neuro oriented x3, CN's II-XII intact bilaterally, no sensory deficits noted and gait normal Sensorium / Orientation: awake, alert, oriented to person, oriented to place and oriented to time Motor Exam: strength 5/5 throughout and strength abnormal Psych mental status grossly normal Skin no rashes or lesions noted and no wounds MDM MDM MDM Narrative Medical decision making narrative: Patient had nebulized tablets. He was medicated morphine and Zofran and Toradol. He had good pain relief initially but required a second dose of morphine. CT scan obtained showed a small stone in the base of the bladder with small amount of right hydroureter. On prior CT few days ago the stone was in the proximal ureter so it is felt that patient in the process of passing stone. Patient will be given urine strainers for home. He will be given a prescription for few [place] for pain. Patient given referral to urology for follow-up. Lab Data Attestation: I reviewed the patient's lab results. Labs: Laboratory Results - last 24 hr 06/08/22 06/08/22 06/08/22 17:00 17:00 19:09 WBC 7.9 RBC 4.34 L Hgb 14.2 Hct 41.6 MCV 95.9 H MCH 32.7 H MCHC 34.1 RDW Std Deviation 47.5 H RDW Coeff of Darvin 13.4 Plt Count 316 MPV 9.2 Immature Gran % (Auto) 0.100 Neut % (Auto) 48.2 Lymph % (Auto) 37.8 [place] % (Auto) 10.1 H Eos % (Auto) 3.3 Baso % (Auto) 0.5 Absolute Neuts (auto) 3.8 Absolute Lymphs (auto) 2.97 Nucleated RBC % 0 Sodium 141 Potassium 3.6 Chloride 105 Carbon Dioxide 30.0 Anion Gap 6 BUN 16 Creatinine 1.07 Estim Creat Clear Calc 83.46 Est GFR (MDRD) Af Amer 96 Est GFR (MDRD) Non-Af 79 BUN/Creatinine Ratio 15.0 Glucose 79 Calcium 9.6 Urine Color Yellow Urine Clarity Clear Urine pH 6.0 Ur Specific [place] 1.015 Urine Protein Negative Urine Glucose (UA) Normal Urine Ketones Negative Urine Occult Blood 50 H Urine Nitrite Negative Urine Bilirubin Negative Urine Urobilinogen Normal Ur Leukocyte Esterase Negative Radiography Diagnostic Testing: Clinical Impression(s) from Imaging Studies Abdomen/Pelvis CT 06/08/22 16:59 IMPRESSION: Bilateral nephrolithiasis.. Mild right hydroureteronephrosis secondary to tiny calculus in the distal intramural portion of the ureter at the base of the bladder Electronically Signed: Orlando Izaguirre MD at 17:39 EDT , Discharge Plan Triage Chief Complaint: Flank Pain ED Provider: Yolis Reynoso Dx/Rx/DC Orders Clinical Impression: Urolithiasis Instructions: ED Kidney Stone w/ Colic Prescriptions: New hydrocodone-acetaminophen [hydrocodone-acetaminophen] 5-325 mg tablet 1 tab PO Q4H PRN PRN (Reason: Pain) 2 Days Qty: 10 0RF No Action hydrocodone-acetaminophen 5-325 mg tablet 1 tab PO Q4H PRN (Reason: pain) 4 Days Qty: 14 0RF Primary Care Provider: Care Physician,No Primary Referrals: Tonny Henson MD [Med Staff - Active Staff] - 3-5 Days Care Physician,No Primary [Primary Care Provider] - Disposition Disposition: Home, Self Care
[2022-06-08] MEDS: 0.9% Normal Saline 1,000 ML 1000 ML IV (17:05)
[2022-06-08] MEDS: Ondansetron 4 MG/2 ML Vial IV (17:05)
[2022-06-08] MEDS: Ketorolac 30 MG/ML Syringe IV (17:05)
[2022-06-08] MEDS: Morphine 4 MG/ML Syringe IV ×2 (17:06→18:30)
[2022-06-08 17:16] LABS: Absolute Lymphocyte Count 2.97 X10^3/uL (0.83-4.51); Absolute Neutrophil Count 3.8 X10^3/uL (2.0-7.7); Basophil# 0.04 X10^3/uL; Basophil% 0.5 % (0-1); Eosinophil# 0.26 X10^3/uL; Eosinophils% 3.3 % (0-5); Hematocrit 41.6 % (40-54); Hemoglobin 14.2 g/dL (13.0-16.5); Lymphocyte # 2.97 X10^3/ul (0.83-4.51); Lymphocyte % 37.8 % (19-41); Mean Corp Hgb Conc 34.1 g/dL (32-36); Mean Corpuscular Hgb 32.7 pg (27.0-32.0); Mean Corpuscular Volume 95.9 fL (80-94); Mean Platelet Vol. 9.2 fl (6.2-12.0); Monocyte# 0.79 X10^3/uL; Monocyte% 10.1 % (0-10); NRBC Flagged by Analyzer 0 % (0-5); Neutrophil # 3.79 X10^3/uL (2.7-7.7); Neutrophil % 48.2 % (47-70); Platelet Count 316 K/mm3 (150-450); RBC Distribution Width CV 13.4 % (11.6-14.6); RBC Distribution Width SD 47.5 fl (35.1-43.9); Red Blood Count 4.34 M/mm3 (4.6-6.2); White Blood Count 7.9 K/mm3 (4.4-11.0)
[2022-06-08 17:37] LABS: Anion Gap 6 (5-15); BUN 16 mg/dL (7-18); Calcium,Total 9.6 mg/dL (8.5-10.1); Chloride 105 mmol/L (98-107); Creatinine, Serum 1.07 mg/dL (0.70-1.30); EST Glomerular Filtration Rate 79 mL/min (>60); Est Glom Filt Rate - Afr Amer 96 mL/min (>60); Estimated Creatinine Clearance 83.46 ml/min; Glucose 79 mg/dL (74-106); Potassium 3.6 mmol/L (3.5-5.1); Sodium Level 141 mmol/L (136-145)
[2022-06-08] MEDS: 0.9% Normal Saline 1,000 ML 150 ML IV (18:31)
[2022-06-08 19:11] VITALS: PULSE 87; RESP 16; O2SAT 98
[2022-06-08 19:14] LABS: Mucous, Urine 0 SEEN /hpf (<or=2+); White Blood Cells 0 SEEN /hpf (0-5)
[2022-06-08 19:25] LABS: Color, Urine Yellow (Yellow); Glucose, Dipstick Normal (Normal); Ketone-Dipstick Negative (Negative); Leukocyte Esterase-Dipstick Negative /ul (Negative); Nitrite-Dipstick Negative (Negative); Occult Blood-Urine 50 /ul (Negative); Protein-Dipstick Negative (Negative); Specific Gravity, Urine 1.015 (1.002-1.030); Urine Bilirubin Dipstick Negative (Negative); Urine Clarity Clear (Clear); Urine Urobilinogen Normal (Normal)
[2022-06-08 19:39] LABS: Bacteria RARE /hpf (None Seen); Red Blood Cells-Urine 5-10 SEEN /hpf (0-5); Squamous Epithelial Cells - UA 0-5 SEEN /hpf (0-5)
[2022-06-08 19:58] VITALS: BP 124/78; PULSE 67; RESP 18; TEMP 37.2; O2SAT 99
== END 2022-06-08 19:59 | disposition home or self-care (01) ==
PROVIDERS: Emergency Provider Emergency Medicine; Visit Provider Emergency Medicine
DX: N13.2 Hydronephrosis with renal and ureteral calculous obstruction (principal); F17.210 Nicotine dependence, cigarettes, uncomplicated; Z87.442 Personal history of urinary calculi
CPT/HCPCS: 74176; 80048; 81001; 85025; 96361; 96374; 96375; 96376; 99285; J7030; A4216; J2405

== ENCOUNTER 2022-07-11 10:29 | Emergency (ER) | payer MEDICAID, SELFPAY ==
[2022-07-11 10:30] VITALS: BP 156/103; PULSE 105; RESP 16; TEMP 36.7; O2SAT 99; BMI 22.8
--- NOTE | 2022-07-11 10:58 | EX.ED.DYSGE1 ---
HPI History of Present Illness Chief Complaint: General Illness Informant: patient Narrative Narrative: Patient with multiple complaints. Reported initially left eye discomfort Monday. He states primary and blew up on his hands he is unclear when he got in his eye. Denies foreign body sensations. Denies crusting. Denies visual changes. Does not wear glasses or contacts he does not remember his last eye exam. Mild photophobia. In addition over the weekend has chills and sweats. No cough. No vomiting diarrhea. No urinary symptoms. PFSH PFSH Medical History History of kidney stones Home Medications hydrocodone-acetaminophen 5-325mg 5mg-325mg 1 tab PO Q4H PRN pain 4 days #14 tabs 06/06/22 [Rx Last Taken Unknown] hydrocodone-acetaminophen 5-325mg 5mg-325mg 1 tab PO Q4H PRN PRN Pain 2 days #10 TABLETS 06/08/22 [Rx Last Taken Unknown] Allergy/AdvReac Type Severity Reaction Status Date / Time bismuth subsalicylate Allergy HEAT RASH Verified 07/11/22 10:32 [From Pepto-Bismol] latex Allergy Rash Verified 07/11/22 10:32 Penicillins Allergy HEAT RASH Verified 07/11/22 10:32 Surgical History Hx of neck surgery Social History Smoking Status: Current every day smoker tobacco type: cigarettes ROS ROS ED Constitutional Constitutional ED: Reports chills and sweats; Denies fever(s) Eyes Eyes: Reports other Details: Left eye erythema ; Denies change in vision ENT ENT ED: Denies dysphagia or sore throat Cardiovascular Cardiovascular: Denies chest pain, leg edema, palpitations or racing heartbeat Respiratory/Chest Respiratory/Chest: Denies cough, dyspnea or dyspnea on exertion Gastrointestinal Gastrointestinal: Denies abdominal pain, diarrhea, nausea or vomiting Genitourinary Genitourinary ED: Denies dysuria, hematuria or urinary frequency Musculoskeletal Musculoskeletal: Denies back pain, extremity pain or neck pain Integumentary Denies rash or wounds Neurologic Neurologic: Denies headache(s), paresthesias or weakness EXAM Physical Exam Const Vital Signs: 07/11/22 10:30 07/11/22 11:09 Temperature 98.1 F Temperature Source Temporal Pulse Rate 105 H Respiratory Rate 16 Respiratory Effort Normal Respiratory Pattern Normal Blood Pressure 156/103 H Blood Pressure Mean 120 Pulse Ox 99 Positive well nourished and well developed General Appearance ED: well developed and NAD HEENT Reports moist mucous membranes normocephalic and atraumatic Eyes PERRL, EOMs intact bilaterally and conjunctivae normal Eyes Narrative: Left eye: Erythema medial aspect of sclera. Moist Q-tip surrounding lid margins with eyelid everted noting no foreign bodies or nodules. Gross exam cornea notes a small speck of black foreign body at 9 o'clock position. General Eye ED: Yes normal appearance of both eyes Neck no lymphadenopathy and supple General: Negative for tenderness Chest Wall Chest: Negative for tenderness Resp normal respiratory effort and normal air movement Effort and Inspection: symmetric chest movement; Negative for respiratory distress Cardio regular rate, regular rhythm and no murmurs Peripheral Pulses: pulses 2+ throughout GI normal to inspection, nondistended, normoactive bowel sounds and non-tender Palpation: Negative for guarding or rebound tenderness present Back/Spine no CVA tenderness and no thoracic nor lumbar tenderness Extremity normal to inspection General Extremety ED: Negative for edema or tenderness General Extremity: Negative for edema Neuro oriented x3 and no sensory deficits noted Sensorium / Orientation: awake and alert Skin no rashes or lesions noted and no wounds MDM MDM MDM Narrative Medical decision making narrative: Visual acuity performed by nursing right eye 20/30, reported left eye unobtainable due to blurry vision. Discussed with the patient was able to see the big letter. Clinical exam noted concerns for corneal foreign body at 9 o'clock position. I placed tetracaine, I attempted positioning for removal with a needle, however multiple attempts patient continued to move his eyes and head therefore unable to attempt for removal. With his chills, rapid COVID and influenza obtained was negative. I discussed with ophthalmology Yessi, patient will be scheduled to see the office this afternoon for treatment and for thorough eye exam. Patient updated. Discharge Plan Triage Chief Complaint: General Illness ED Provider: Sheldon Oconnor Dx/Rx/DC Orders Clinical Impression: Foreign body in eye, Blurry vision, left eye Instructions: ED Blurred Vision Prescriptions: No Action hydrocodone-acetaminophen 5-325 mg tablet 1 tab PO Q4H PRN (Reason: pain) 4 Days Qty: 14 0RF hydrocodone-acetaminophen [hydrocodone-acetaminophen] 5-325 mg tablet 1 tab PO Q4H PRN PRN (Reason: Pain) 2 Days Qty: 10 0RF Primary Care Provider: Care Physician,No Primary Referrals: Bang Bruner MD [Med Staff - Active Staff] - As soon as possible Care Physician,No Primary [Primary Care Provider] - Activity Restrictions/Additional Instructions: Foreign body noted 9 o'clock position left eye. Office will call you with time appointments show up today. You can go and wait there for your appointment also. Disposition Disposition: Home, Self Care Discharge Date/Time: 07/11/22 13:41
[2022-07-11] MEDS: Tetracaine 0.5% Ophthalmic Bottle OPHTHALMIC (12:57)
[2022-07-11] MEDS: Fluorescein 1 MG STRIP 1 STRIP OPHTHALMIC (12:57)
--- NOTE | 2022-07-11 13:03 | CM.ED ---
SW Note Referral Source: Case Find Referral Reason: No Primary Care Physician (PCP) SW reviewed chart and noted that patient has no PCP. SW provided patient with list of [facility] and [facility] Physician List for reference. SW also provided patient with handout ?Where to go When?. No other issues or concerns voiced at this time. SW remains available for any additional needs. Plan: Provided patient with PCP information Anni PELLETIER
[2022-07-11] MEDS: Acetaminophen 500 MG Tablet 1000 MG PO (13:41)
== END 2022-07-11 13:41 | disposition home or self-care (01) ==
PROVIDERS: Emergency Provider Emergency Medicine; Visit Provider Emergency Medicine
DX: T15.02XA Foreign body in cornea, left eye, initial encounter (principal); X58.XXXA Exposure to other specified factors, initial encounter; H53.8 Other visual disturbances; R68.83 Chills (without fever); F17.210 Nicotine dependence, cigarettes, uncomplicated
CPT/HCPCS: 87428; 99283

== ENCOUNTER 2022-09-28 10:03 | Emergency (ER) | payer MEDICAID, SELFPAY ==
[2022-09-28 10:04] VITALS: BP 130/80; PULSE 101; RESP 18; TEMP 36.6; O2SAT 100; BMI 24.3
--- NOTE | 2022-09-28 10:14 | EX.ED.DYSGE1 ---
HPI History of Present Illness Chief Complaint: Flank Pain Informant: patient Onset/Context/Timing Onset: Today and Hours (6) Context: Sudden Onset Timing: Intermittent Quality: Sharp Location: Left flank and left abdomen Worsened by: Nothing Relieved by: Nothing Narrative Narrative: Patient presents with left flank pain that began today. Patient states it began approximately 6 hours prior to arrival. Patient states it comes and goes. Patient describes the pain as sharp. Patient states it is mainly on his left side. Patient states he has a history of kidney stones but they are always on his right side. Patient states nothing makes his pain worse and nothing makes it better. Patient admits to nausea but denies any vomiting or diarrhea. Patient admits to urinary frequency but denies any dysuria or hematuria. Patient denies any fevers or chills. PFSH PFSH Medical History History of kidney stones Home Medications hydrocodone-acetaminophen 5-325mg 5mg-325mg 1 tab PO Q4H PRN pain 4 days #14 tabs 06/06/22 [Rx Last Taken Unknown] hydrocodone-acetaminophen 5-325mg 5mg-325mg 1 tab PO Q4H PRN PRN Pain 2 days #10 TABLETS 06/08/22 [Rx Last Taken Unknown] hydrocodone-acetaminophen 5-325mg 5mg-325mg 1 tab PO Q6H PRN PRN Pain 3 days #10 TABLETS 09/28/22 [Rx Last Taken Unknown] Allergy/AdvReac Type Severity Reaction Status Date / Time bismuth subsalicylate Allergy HEAT RASH Verified 09/28/22 10:04 [From Pepto-Bismol] latex Allergy Rash Verified 09/28/22 10:04 Penicillins Allergy HEAT RASH Verified 09/28/22 10:04 Surgical History Hx of neck surgery Social History Smoking Status: Current every day smoker tobacco type: cigarettes ROS ROS ED Constitutional Constitutional ED: Denies chills or fever(s) Eyes Eyes: Reports blurry vision; Denies diplopia ENT ENT ED: Denies rhinorrhea or sore throat Cardiovascular Cardiovascular: Denies chest pain or palpitations Respiratory/Chest Respiratory/Chest: Denies cough or dyspnea Gastrointestinal Gastrointestinal: Reports abdominal pain and nausea; Denies vomiting Genitourinary Genitourinary ED: Reports urinary frequency; Denies dysuria or hematuria Musculoskeletal Musculoskeletal: Reports back pain and neck pain Integumentary Denies abscess or rash Neurologic Neurologic: Reports headache(s); Denies weakness Allergic/Immunologic Allergic/Immunologic ED: Denies mouth swelling or urticaria EXAM Physical Exam Const Vital Signs: 09/28/22 10:04 09/28/22 10:08 Temperature 97.9 F Temperature Source Oral Pulse Rate 101 H Respiratory Rate 18 Respiratory Pattern Normal Blood Pressure 130/80 H Blood Pressure Mean 96 Pulse Ox 100 Oxygen Delivery Method Room Air Positive well nourished and well developed General Appearance ED: well developed and NAD HEENT Reports moist mucous membranes Neck supple and no JVD Resp normal respiratory effort and clear to auscultation bilaterally Cardio regular rate, regular rhythm and no murmurs GI normal to inspection, nondistended, normoactive bowel sounds Palpation: soft and tender LLQ and LUQ; Negative for guarding or rebound tenderness present Back/Spine General Back: CVA tenderness left Extremity normal to inspection General Extremety ED: Negative for edema or tenderness General Extremity: Negative for edema Neuro oriented x3, CN's II-XII intact bilaterally and no sensory deficits noted Sensorium / Orientation: alert Motor Exam: strength 5/5 throughout Psych mental status grossly normal Skin no rashes or lesions noted MDM MDM MDM Narrative Medical decision making narrative: Patient was given IV fluids and Toradol initially. Patient was also given Zofran. CBC was obtained and was reviewed. There is a mild leukocytosis of 13.6. Remainder was within normal limits. Comprehensive metabolic profile was obtained and was reviewed. BUN was slightly elevated at 21. Creatinine was normal at 1.19. Electrolytes were within normal limits. Urinalysis was obtained and was reviewed. Leukocyte esterase is 100 with 0-5 white blood cells. Occult blood is 250 with 10-[address] scan of the abdomen pelvis was obtained. On my independent interpretation there is a calculus of the left distal ureter with hydronephrosis and hydroureter. Radiologist also interpreted the CT scan and showed bilateral renal calculi that are nonobstructing in addition to the 4.3 mm calculus of the left distal ureter. Patient was given a dose of morphine. Patient was advised of his findings. Patient was given a prescription for a short course of [place]. Patient was instructed to drink plenty of fluids. Patient was instructed to follow-up with his primary care physician in 5 to 7 days. Patient is also given referral for urology. Patient understands and is agreeable with the plan. All questions were answered. Lab Data Labs: Laboratory Results - last 24 hr 09/28/22 09/28/22 09/28/22 10:35 10:35 11:05 WBC 13.6 H RBC 4.42 L Hgb 13.7 Hct 41.1 MCV 93.0 MCH 31.0 MCHC 33.3 RDW Std Deviation 43.6 RDW Coeff of Darvin 12.7 Plt Count 288 MPV 9.4 Immature Gran % (Auto) 0.400 Neut % (Auto) 67.4 Lymph % (Auto) 22.2 [place] % (Auto) 8.4 Eos % (Auto) 1.4 Baso % (Auto) 0.2 Absolute Neuts (auto) 9.1 H Absolute Lymphs (auto) 3.01 Nucleated RBC % 0 Sodium 139 Potassium 3.8 Chloride 109 H Carbon Dioxide 25.0 Anion Gap 5 BUN 21 H Creatinine 1.19 Estim Creat Clear Calc 75.04 Est GFR (MDRD) Af Amer 85 Est GFR (MDRD) Non-Af 70 BUN/Creatinine Ratio 17.6 Glucose 85 Calcium 9.7 Total Bilirubin 0.50 AST 23 ALT 30 Alkaline Phosphatase 94 Total Protein 7.7 Albumin 3.8 Globulin 3.9 Albumin/Globulin Ratio 1.0 Urine Color Yellow Urine Clarity Clear Urine pH 6.0 Ur Specific [place] 1.015 Urine Protein 15 H Urine Glucose (UA) Normal Urine Ketones 5 H Urine Occult Blood 250 H Urine Nitrite Negative Urine Bilirubin Negative Urine Urobilinogen Normal Ur Leukocyte Esterase 100 H Urine RBC 10-25 SEEN Urine WBC 0-5 SEEN Ur Squamous Epith Cells 0 SEEN Urine Bacteria 0 SEEN Urine Mucus 0 SEEN Radiography Diagnostic Testing: Clinical Impression(s) from Imaging Studies Abdomen/Pelvis CT 09/28/22 10:17 IMPRESSION: Nonobstructive bilateral intrarenal calculi. 4.3 mm calculus at the left ureterovesical junction causing mild degree of the left hydronephrosis. Electronically Signed: Jay Palomo MD at 11:13 EST , Discharge Plan Triage Chief Complaint: Flank Pain ED Provider: Luis Alberto Chester Dx/Rx/DC Orders Clinical Impression: Calculus of distal left ureter, Bilateral kidney stones Instructions: ED Kidney Stone w/ Colic Prescriptions: New hydrocodone-acetaminophen [hydrocodone-acetaminophen] 5-325 mg tablet 1 tab PO Q6H PRN PRN (Reason: Pain) 3 Days Qty: 10 0RF No Action hydrocodone-acetaminophen 5-325 mg tablet 1 tab PO Q4H PRN (Reason: pain) 4 Days Qty: 14 0RF hydrocodone-acetaminophen [hydrocodone-acetaminophen] 5-325 mg tablet 1 tab PO Q4H PRN PRN (Reason: Pain) 2 Days Qty: 10 0RF Primary Care Provider: Care Physician,No Primary Referrals: Tonny Henson MD [Med Staff - Active Staff] - 3-5 Days Care Physician,No Primary [Primary Care Provider] - Disposition Disposition: Home, Self Care
--- NOTE | 2022-09-28 10:17 | CT_ITS ---
STUDY: CT ABDOMEN AND PELVIS WITHOUT CONTRAST REASON FOR EXAM: Male, 47 years old. Left flank pain RADIATION DOSAGE (If Supplied By Facility): CTDIvol = ( 6.84 ) mGy, DLP = ( 334.85 ) mGycm TECHNIQUE: Transaxial images were obtained from the dome of the diaphragm to the symphysis pubis without oral contrast, and without intravenous contrast. Sagittal and coronal images were reconstructed. Individualized dose optimization techniques were used for this CT. COMPARISON: Comparison is made with prior study dated 06/08/2022. FINDINGS: The visualized lung bases are unremarkable. The visualized portions of the heart are within normal limits. Normal liver. Normal gallbladder and extrahepatic biliary system. Normal spleen. Normal pancreas. Normal bilateral adrenal glands. Tiny nonobstructive right intrarenal calculi. There is a 3.2 mm calculus in the upper pole calyx of the left kidney. 2 mm calculus is also seen in the mid pole calyx of the left kidney. Mild enlargement of the left kidney. Mild degree of left hydronephrosis due to a 4.3 mm calculus at the left ureterovesical junction. Normal visualized stomach. Normal small intestine. Moderate amount of fecal material is seen in the right hemicolon. The appendix is visualized and appears normal. Normal abdominal aorta. Normal inferior vena cava. Normal retroperitoneum. Normal urinary bladder. Normal abdominal wall. There are degenerative changes of the visualized lumbar spine more prominent at the L4-L5 and L5-S1 levels.. CT/Abdomen/Pelvis without Cont IMPRESSION: Nonobstructive bilateral intrarenal calculi. 4.3 mm calculus at the left ureterovesical junction causing mild degree of the left hydronephrosis. Electronically Signed: Jay Palomo MD at 11:13 EST ,
[2022-09-28] MEDS: 0.9% Normal Saline 1,000 ML 1000 ML IV (10:32)
[2022-09-28] MEDS: Ondansetron 4 MG/2 ML Vial IV (10:32)
[2022-09-28] MEDS: Ketorolac 30 MG/ML Syringe IV (10:33)
[2022-09-28 10:42] LABS: Absolute Lymphocyte Count 3.01 X10^3/uL (0.83-4.51); Absolute Neutrophil Count 9.1 X10^3/uL (2.0-7.7); Basophil# 0.03 X10^3/uL; Basophil% 0.2 % (0-1); Eosinophil# 0.19 X10^3/uL; Eosinophils% 1.4 % (0-5); Hematocrit 41.1 % (40-54); Hemoglobin 13.7 g/dL (13.0-16.5); Lymphocyte # 3.01 X10^3/ul (0.83-4.51); Lymphocyte % 22.2 % (19-41); Mean Corp Hgb Conc 33.3 g/dL (32-36); Mean Platelet Vol. 9.4 fl (6.2-12.0); Monocyte# 1.14 X10^3/uL; Monocyte% 8.4 % (0-10); NRBC Flagged by Analyzer 0 % (0-5); Neutrophil # 9.14 X10^3/uL (2.7-7.7); Neutrophil % 67.4 % (47-70); Platelet Count 288 K/mm3 (150-450); RBC Distribution Width CV 12.7 % (11.6-14.6); RBC Distribution Width SD 43.6 fl (35.1-43.9); Red Blood Count 4.42 M/mm3 (4.6-6.2); White Blood Count 13.6 K/mm3 (4.4-11.0)
[2022-09-28 10:56] LABS: AST(SGOT) 23 U/L (15-37); Alanine Aminotransfer ALT/SGPT 30 U/L (16-61); Albumin, Serum 3.8 g/dL (3.2-5.0); Alkaline Phosphatase 94 U/L (45-117); Anion Gap 5 (5-15); BUN 21 mg/dL (7-18); BUN/Creat Ratio 17.6 RATIO (10-20); Calcium,Total 9.7 mg/dL (8.5-10.1); Chloride 109 mmol/L (98-107); Creatinine, Serum 1.19 mg/dL (0.70-1.30); EST Glomerular Filtration Rate 70 mL/min (>60); Est Glom Filt Rate - Afr Amer 85 mL/min (>60); Estimated Creatinine Clearance 75.04 ml/min; Globulin 3.9 g/dL (2.2-4.2); Glucose 85 mg/dL (74-106); Potassium 3.8 mmol/L (3.5-5.1); Protein, Total 7.7 g/dL (6.4-8.2); Sodium Level 139 mmol/L (136-145)
[2022-09-28 11:12] LABS: Bacteria 0 SEEN /hpf (None Seen); Mucous, Urine 0 SEEN /hpf (<or=2+); Squamous Epithelial Cells - UA 0 SEEN /hpf (0-5)
[2022-09-28 11:14] LABS: Glucose, Dipstick Normal (Normal); Ketone-Dipstick 5 mg/dl (Negative); Leukocyte Esterase-Dipstick 100 /ul (Negative); Nitrite-Dipstick Negative (Negative); Occult Blood-Urine 250 /ul (Negative); Protein-Dipstick 15 mg/dl (Negative); Specific Gravity, Urine 1.015 (1.002-1.030); Urine Bilirubin Dipstick Negative (Negative); Urine Urobilinogen Normal (Normal)
[2022-09-28 11:18] LABS: Color, Urine Yellow (Yellow); Urine Clarity Clear (Clear)
[2022-09-28 11:25] LABS: Red Blood Cells-Urine 10-25 SEEN /hpf (0-5); White Blood Cells 0-5 SEEN /hpf (0-5)
--- NOTE | 2022-09-28 11:29 | NURSING ---
PATIENT CALLED DESK AND USED THE F BOMB NUMEROUS TIMES ON [employer].
[2022-09-28] MEDS: Morphine 4 MG/ML Syringe IV (11:30)
[2022-09-28 12:04] VITALS: PULSE 92; RESP 17; O2SAT 100
== END 2022-09-28 12:07 | disposition home or self-care (01) ==
PROVIDERS: Emergency Provider Emergency Medicine; Visit Provider Emergency Medicine
DX: N13.2 Hydronephrosis with renal and ureteral calculous obstruction (principal); F17.210 Nicotine dependence, cigarettes, uncomplicated; Z87.442 Personal history of urinary calculi
CPT/HCPCS: 74176; 80053; 81001; 85025; 96361; 96374; 96375; 99285; J7030; A4216; J2405

== ENCOUNTER 2022-12-03 10:20 | Emergency (ER) | payer MEDICAID, SELFPAY ==
[2022-12-03 10:21] VITALS: BP 133/89; PULSE 99; RESP 18; TEMP 37.9; O2SAT 99; BMI 27.5
--- NOTE | 2022-12-03 10:33 | EDS_ITS ---
HPI History of Present Illness Chief Complaint: General Illness Informant: patient Associated Symptoms Associated Symptoms ED: cough Narrative Narrative: Otherwise healthy 47-year-old male presenting with respiratory illness, that started a couple days ago with some chest congestion, last night he states he suddenly felt very poorly with fevers, chills, myalgias, headache, sore throat, increased coughing. He states he has lost his sense of smell and taste as of yesterday. Occasional shortness of breath but not the whole time. Has not done a home COVID test. Unvaccinated against COVID and flu this season. He states that he lives with his mom, and that according to her he possibly had 2 seizures overnight while he was sleeping. He does not recall any of this. He states his jaw hurts upon waking up this morning, diffusely without dental pain, but he does not have any injury to his tongue and did not wake up having had soiled himself or anything like that. No history of any seizures. When asked what his mom told him, since she is not here, apparently he had some shaking and then was difficult to wake up. [facility] Medical History History of kidney stones Home Medications hydrocodone-acetaminophen 5-325mg 5mg-325mg 1 tab PO Q4H PRN pain 4 days #14 tabs 06/06/22 [Rx Last Taken Unknown] hydrocodone-acetaminophen 5-325mg 5mg-325mg 1 tab PO Q4H PRN PRN Pain 2 days #10 TABLETS 06/08/22 [Rx Last Taken Unknown] hydrocodone-acetaminophen 5-325mg 5mg-325mg 1 tab PO Q6H PRN PRN Pain 3 days #10 TABLETS 09/28/22 [Rx Last Taken Unknown] Allergy/AdvReac Type Severity Reaction Status Date / Time bismuth subsalicylate Allergy HEAT RASH Verified 12/03/22 10:21 [From Pepto-Bismol] latex Allergy Rash Verified 12/03/22 10:21 Penicillins Allergy HEAT RASH Verified 12/03/22 10:21 Surgical History Hx of neck surgery Social History Smoking Status: Current every day smoker tobacco type: cigarettes ROS ROS ED Constitutional Constitutional ED: Reports body ache(s), chills, fatigue, fever(s), headache(s) and malaise Eyes Eyes: Denies change in vision or diplopia ENT ENT ED: Reports loss taste/smell, rhinorrhea and sore throat Cardiovascular Cardiovascular: Denies chest pain or palpitations Respiratory/Chest Respiratory/Chest: Reports chest congestion, cough and dyspnea; Denies dyspnea on exertion Gastrointestinal Gastrointestinal: Denies abdominal pain, diarrhea, nausea or vomiting Genitourinary Genitourinary ED: Denies dysuria or hematuria Musculoskeletal Musculoskeletal: Denies back pain or neck pain Integumentary Denies abscess or rash Neurologic Neurologic: Reports headache(s); Denies paresthesias or weakness Psychiatric Psychiatric: Denies anxiety or suicidal thoughts EXAM Physical Exam Const Vital Signs: 12/03/22 10:21 12/03/22 11:40 12/03/22 13:19 Temperature 100.3 F H Temperature Source Temporal Pulse Rate 99 Respiratory Rate 18 16 Respiratory Effort Short of Breath Blood Pressure 133/89 H Blood Pressure Mean 103 Pulse Ox 99 Oxygen Delivery Method Room Air Room Air Positive well nourished and well developed Constitutional Narrative: Malaised-appearing, no distress General Appearance ED: well developed and NAD HEENT Reports moist mucous membranes normocephalic and atraumatic Eyes PERRL and EOMs intact bilaterally Neck full ROM, no lymphadenopathy and supple Chest Wall inspection of chest normal and palpation of chest normal Resp normal respiratory effort and clear to auscultation bilaterally Effort and Inspection: able to speak in complete sentences Cardio regular rate, regular rhythm and no murmurs Rate: Negative for tachycardic GI non-tender and non-distended Auscultation: normoactive bowel sounds Palpation: soft Back/Spine no CVA tenderness General Back: other FROM Extremity normal to inspection and no calf tenderness General Extremety ED: Negative for edema, pulses abnormal or tenderness General Extremity: Negative for edema or pulses abnormal Neuro oriented x3, CN's II-XII intact bilaterally and no sensory deficits noted Sensorium / Orientation: awake and alert Motor Exam: strength 5/5 throughout Skin no rashes or lesions noted and no wounds MDM MDM MDM Narrative Medical decision making narrative: Given the patient's complaint of seizure-like activity, possibly, I did a head scan and a lactic acid in addition to basic labs, chest x-ray, COVID and flu swabs. Everything is basically normal. I reviewed the CT images of the head and they look normal, I agree with the radiologist interpretation which agrees with that. 2 view chest x-ray my interpretation is normal and radiology results in agreement. His negative lactate argues against a full body tonic-clonic seizure but does not necessarily rule it out, but my suspicion is that the patient did not actually have a seizure that more likely he was having chills and mounting a fever. However there are certainly details of the history that are lacking here, and I do not have the full story. I recommend close outpatient follow-up with his PCP, COVID and influenza swabs are negative, it is certainly possible that he is testing early and that he really does have COVID he does not have clinical findings of acute sinusitis or anything else that antibiotics are indicated for. Supportive care advised, he was given Tylenol and did feel little better when his temp came down, close a patient follow-up advised, I will offer him a dose of Toradol prior to discharge. Does not have a PCP, he was referred to the next doctor on the unassigned list. Lab Data Attestation: I reviewed the patient's lab results. Labs: Laboratory Results - last 24 hr 12/03/22 12/03/22 12/03/22 11:30 11:30 11:30 WBC 8.5 RBC 4.46 L Hgb 14.3 Hct 41.9 MCV 93.9 MCH 32.1 H MCHC 34.1 RDW Std Deviation 45.4 H RDW Coeff of Darvin 13.2 Plt Count 276 MPV 8.9 Immature Gran % (Auto) 0.100 Neut % (Auto) 68.8 Lymph % (Auto) 19.6 [place] % (Auto) 9.6 Eos % (Auto) 1.7 Baso % (Auto) 0.2 Absolute Neuts (auto) 5.8 Absolute Lymphs (auto) 1.66 Nucleated RBC % 0 Sodium 139 Potassium 4.4 Chloride 105 Carbon Dioxide 33.0 H Anion Gap 1 L BUN 11 Creatinine 0.98 Estim Creat Clear Calc 91.12 Est GFR (MDRD) Af Amer 105 Est GFR (MDRD) Non-Af 87 BUN/Creatinine Ratio 11.2 Glucose 90 Lactic Acid 1.3 Calcium 9.1 Radiography Diagnostic Testing: Clinical Impression(s) from Imaging Studies Brain CT 12/03/22 11:13 IMPRESSION: Negative Brain CT without contrast. Electronically Signed: Leonardo Nelson MD, JD at 12:00 EDT , Chest X-Ray 12/03/22 11:40 IMPRESSION: No radiographic evidence of acute cardiopulmonary disease. Electronically Signed: Leonardo Nelson MD, JD at 12:01 EDT , Discharge Plan Triage Chief Complaint: General Illness ED Provider: Christian Nowak Dx/Rx/DC Orders Clinical Impression: Acute viral syndrome, Seizure-like activity Instructions: ED Viral Syndrome (Adult) Prescriptions: No Action hydrocodone-acetaminophen 5-325 mg tablet 1 tab PO Q4H PRN (Reason: pain) 4 Days Qty: 14 0RF hydrocodone-acetaminophen [hydrocodone-acetaminophen] 5-325 mg tablet 1 tab PO Q4H PRN PRN (Reason: Pain) 2 Days Qty: 10 0RF hydrocodone-acetaminophen [hydrocodone-acetaminophen] 5-325 mg tablet 1 tab PO Q6H PRN PRN (Reason: Pain) 3 Days Qty: 10 0RF Primary Care Provider: Care Physician,No Primary Referrals: Nia Holguin MD [Med Staff - Active Staff] - (call for follow up appt) Care Physician,No Primary [Primary Care Provider] - Disposition Disposition: Home, Self Care
--- NOTE | 2022-12-03 11:13 | CT_ITS ---
INDICATION: seizure-like activity EXAMINATION: CT BRAIN - CT Head or Brain W/O Contrast Injection TECHNIQUE: Multiple axial images were obtained of the head without intravenous contrast. A radiation dose optimization technique was used for this scan. IV Contrast dosage and agent: None. COMPARISON: FINDINGS: BRAIN PARENCHYMA: No intra- or extra-axial hemorrhage. No evidence of acute infarct. No intracranial mass or mass effect. There is preservation of the esquivel/white matter interface. Posterior fossa structures are unremarkable. CSF SPACES: Appropriate for age. No hydrocephalus. Basal cisterns are patent. CALVARIUM, SKULL BASE, PARANASAL SINUSES AND MASTOID AIR CELLS: Posterior medial left maxillary sinus polyp or mucous retention cyst 6 x 7 mm. No discrete lytic or blastic abnormalities. ORBITS: Both globes, extraocular muscles, optic nerves and retrobulbar fat appear unremarkable. ASPECTS Score for Acute Strokes: 10 CT/Brain/Head without Contrast IMPRESSION: Negative Brain CT without contrast. Electronically Signed: Leonardo Nelson MD, LITTLE at 12:00 EDT ,
[2022-12-03] MEDS: Acetaminophen 500 MG Tablet 1000 MG PO (11:32)
[2022-12-03 11:40] LABS: Absolute Lymphocyte Count 1.66 X10^3/uL (0.83-4.51); Absolute Neutrophil Count 5.8 X10^3/uL (2.0-7.7); Basophil# 0.02 X10^3/uL; Basophil% 0.2 % (0-1); Eosinophil# 0.14 X10^3/uL; Eosinophils% 1.7 % (0-5); Hematocrit 41.9 % (40-54); Hemoglobin 14.3 g/dL (13.0-16.5); Lymphocyte # 1.66 X10^3/ul (0.83-4.51); Lymphocyte % 19.6 % (19-41); Mean Corp Hgb Conc 34.1 g/dL (32-36); Mean Corpuscular Hgb 32.1 pg (27.0-32.0); Mean Corpuscular Volume 93.9 fL (80-94); Mean Platelet Vol. 8.9 fl (6.2-12.0); Monocyte# 0.81 X10^3/uL; Monocyte% 9.6 % (0-10); NRBC Flagged by Analyzer 0 % (0-5); Neutrophil # 5.83 X10^3/uL (2.7-7.7); Neutrophil % 68.8 % (47-70); Platelet Count 276 K/mm3 (150-450); RBC Distribution Width CV 13.2 % (11.6-14.6); RBC Distribution Width SD 45.4 fl (35.1-43.9); Red Blood Count 4.46 M/mm3 (4.6-6.2); White Blood Count 8.5 K/mm3 (4.4-11.0)
--- NOTE | 2022-12-03 11:40 | RAD_ITS ---
INDICATION: cough, sob, fever EXAMINATION/TECHNIQUE: X-RAY - XR Chest 2 Views COMPARISON: 03/25/2015 FINDINGS: LINES/DEVICES: Interval ACDF extending from C6 through T1 and interval posterior fusion extending caudally to the C7 level. LUNGS: No consolidation, edema or effusion. No pneumothorax. MEDIASTINUM AND CARDIOVASCULAR STRUCTURES: Cardiac silhouette not enlarged. Central airways and mediastinal contour are unremarkable. BONES AND SOFT TISSUES: Degenerative changes lower thoracic spine. RAD/Chest PA and Lateral IMPRESSION: No radiographic evidence of acute cardiopulmonary disease. Electronically Signed: Leonardo Nelson MD, LITTLE at 12:01 EDT ,
[2022-12-03 11:50] LABS: Anion Gap 1 (5-15); BUN 11 mg/dL (7-18); BUN/Creat Ratio 11.2 RATIO (10-20); Calcium,Total 9.1 mg/dL (8.5-10.1); Chloride 105 mmol/L (98-107); Creatinine, Serum 0.98 mg/dL (0.70-1.30); EST Glomerular Filtration Rate 87 mL/min (>60); Est Glom Filt Rate - Afr Amer 105 mL/min (>60); Estimated Creatinine Clearance 91.12 ml/min; Glucose 90 mg/dL (74-106); Potassium 4.4 mmol/L (3.5-5.1); Sodium Level 139 mmol/L (136-145)
[2022-12-03 12:04] LABS: Lactic Acid 1.3 mmol/L (0.4-1.9)
[2022-12-03 13:19] VITALS: RESP 16
[2022-12-03 13:36] VITALS: BP 134/72; PULSE 72; RESP 16; O2SAT 98
== END 2022-12-03 13:37 | disposition home or self-care (01) ==
PROVIDERS: Emergency Provider Emergency Medicine; Visit Provider Emergency Medicine
DX: B34.9 Viral infection, unspecified (principal); R56.9 Unspecified convulsions; F17.210 Nicotine dependence, cigarettes, uncomplicated
CPT/HCPCS: 70450; 71046; 80048; 83605; 85025; 87428; 99282

== ENCOUNTER 2024-08-10 00:35 | Emergency (ER) | payer MEDICAID, SELFPAY ==
[2024-08-10 00:36] VITALS: BP 167/104; PULSE 91; RESP 18; TEMP 35.8; O2SAT 99; BMI 29.2
--- NOTE | 2024-08-10 00:37 | EX.ED.DYSGE1 ---
HPI History of Present Illness Chief Complaint: Flank Pain [facility] Medical History History of kidney stones Home Medications ?Medication ?Instructions ?Recorded ?Last Taken ?Type ondansetron 4 mg disintegrating 4 mg PO Q8H PRN PRN Nausea #10 tabs 08/10/24 Unknown Rx tablet oxycodone 5 mg capsule 5 mg PO Q6H PRN pain 3 days #12 08/10/24 Unknown Rx caps sertraline 50 mg tablet 50 mg PO DAILY 08/10/24 Unknown History Allergy/AdvReac Type Severity Reaction Status Date / Time bismuth subsalicylate (From Allergy HEAT RASH Verified 08/10/24 00:40 Pepto-Bismol) latex Allergy Rash Verified 08/10/24 00:40 Penicillins Allergy HEAT RASH Verified 08/10/24 00:40 Surgical History Hx of neck surgery Social History Smoking Status: Current every day smoker tobacco type: cigarettes EXAM Physical Exam Const Vital Signs: 08/10/24 00:36 Temperature 96.4 F L Temperature Source Temporal Pulse Rate 91 Respiratory Rate 18 Blood Pressure 167/104 H Blood Pressure Mean 125 Pulse Ox 99 Oxygen Delivery Method Room Air MDM MDM MDM Narrative Medical decision making narrative: HISTORY OF PRESENT ILLNESS: 49-year-old male presents with concern for flank pain. Notes history of kidney stones. States this began approximately 2 hours ago. Feels like prior kidney stone. Does note right-sided flank pain radiates to the groin. Denies falls or trauma. Denies personal family history of connective tissue disease or aortic aneurysms. Denies numbness weakness or loss of sensation. No chest pain or shortness of breath noted. REVIEW OF SYSTEMS: Pertinent positives: Flank pain, hematuria Pertinent negatives: Vomiting, fever, syncope, chest pain, shortness of breath PHYSICAL EXAM: Nursing triage notes reviewed, Vital signs reviewed Constitutional: please see mdm Lungs: Clear to auscultation, No wheezing or rales. No increased work of breathing, no conversational dyspnea, no accessory muscle use, no nasal flaring. No respiratory distress noted Heart: Regular rate and rhythm, No murmurs, No rubs and No gallops, 2+ distal pulses (radial, femoral, posterior tibial) in all extremities Abdomen: Soft, there is no tenderness, no rigidity, rebound or guarding, no obvious peritoneal signs, no palpable pulsatile abdominal masses, no auscultated abdominal bruit : Right CVAT noted Extremities: No edema Neuro: Alert, oriented x 3, at baseline, sensation all 4 extremities, moves all 4 extremities, no localizing signs Skin: No rash or lesions noted MEDICAL DECISION MAKING: Chief Complaint: Flank pain External records reviewed: Reviewed prior imaging studies: Reviewed CT scan of the abdomen pelvis from September 2022 return 4.3 mm calculus left UVJ Factors affecting care: Nephrolithiasis Social determinants of health: Aggressive behavior depression, History obtained from others: none Consults: none MDM Narrative: Patient was initially I considered the following differential diagnosis: Nephrolithiasis, musculoskeletal injury, UTI, pyelonephritis, AAA I obtained a broad lab and imaging workup to further elucidate the etiology of the patient's complaints. I initially treat the patient with 4 mg of IV Zofran, 15 mg of IV Toradol and 4 mg of IV morphine. I withheld fluids for now given ongoing fluid shortage. ALL IMAGES (IF OBTAINED) HAVE BEEN PERSONALLY REVIEWED AND INTERPRETED BY MYSELF. CBC without leukocytosis, severe anemia, no thrombocytopenia. BMP with mild hypokalemia, no other significant electrolyte abnormalities, no signs of metabolic acidosis or endorgan hypoperfusion within normal bicarb and anion gap. CT scan of the abdomen pelvis read and reviewed personally by myself showed evidence of small nephrolithiasis UVJ on the right. Radiologist agrees my interpretation. UA ordered awaiting results Prior to UA being resulted patient eloped from the emergency department. The patient and/or family, caregivers express understanding. The patient and/or family, caregivers agrees with the plan. Shared decision making: I will have a discussion with the patient and or visitors regarding risk/benefits of further testing or admission. They will be made aware of of the risk/benefits inherent in this decision they will be given the opportunity to voice understanding. Total critical care time today provided was at least 0 minutes. This excludes separately billable procedures. Critical care time (if documented) is secondary to the patient having high probability of clinically significant/life threatening deterioration in the patient's condition which required my urgent intervention. Impression: 1. Acute flank pain 2. History of nephrolithiasis 3. Nephrolithiasis 4. Eloped from emergency department Dispo: Eloped prior to result of urinalysis This note was generated with [employer] dictation software. It may contain incorrect words, spelling, and punctuation that were not noted in review of the chart prior to signing. Lab Data Labs: Laboratory Results - last 24 hr 08/10/24 00:37 WBC 9.9 RBC 4.64 Hgb 14.7 Hct 42.6 MCV 91.8 MCH 31.7 MCHC 34.5 RDW Std Deviation 45.1 H RDW Coeff of Darvin 13.3 Plt Count 351 MPV 9.3 Immature Gran % (Auto) 0.300 Neut % (Auto) 57.6 Lymph % (Auto) 29.5 [place] % (Auto) 9.8 Eos % (Auto) 2.4 Baso % (Auto) 0.4 Absolute Neuts (auto) 5.7 Absolute Lymphs (auto) 2.91 Nucleated RBC % 0 Sodium 140 Potassium 3.4 L Chloride 105 Carbon Dioxide 28.0 Anion Gap 7 BUN 14 Creatinine 1.16 Estim Creat Clear Calc 83.58 Est GFR (MDRD) Af Amer 86 Est GFR (MDRD) Non-Af 71 BUN/Creatinine Ratio 12.1 Glucose 112 H Calcium 9.7 Radiography Diagnostic Testing: Clinical Impression(s) from Imaging Studies Abdomen/Pelvis CT 08/10/24 00:41 IMPRESSION: Distal right ureteral calculus with moderate right hydroureteronephrosis. Bilateral nephrolithiasis. Electronically Signed: Thelma Tong MD at 1:35 EST , Discharge Plan Triage Chief Complaint: Flank Pain ED Provider: Seferino Boateng Dx/Rx/DC Orders Clinical Impression: Nephrolithiasis Instructions: Preventing Kidney Stones, ED Kidney Stone with Pain Prescriptions: New ondansetron 4 mg tablet,disintegrating 4 mg PO Q8H PRN PRN (Reason: Nausea) Qty: 10 0RF oxycodone 5 mg capsule 5 mg PO Q6H PRN (Reason: pain) 3 Days Qty: 12 0RF No Action sertraline 50 mg tablet 50 mg PO DAILY Primary Care Provider: Tha Physician,No Primary Referrals: Tonny Henson MD [Med Staff - Active Staff] - Activity Restrictions/Additional Instructions: Thank you for trusting us with your care today! Your CT scan was remarkable for a kidney stone. This should pass spontaneously on its own given its small size. Please take Tylenol (2 pills, 650 mg), ibuprofen (2 pills, 400 mg) every 6 hours as needed for pain and fever control. If this does not control your pain please take oxycodone for breakthrough pain. Please take Zofran as needed for nausea vomiting control. Please increase fluid intake to encourage passage of stone. Please return to the emergency department if your symptoms change or worsen. Please follow with your primary care physician for further outpatient evaluation and management. Print Language: Angolan Disposition Disposition: Home, Self Care
--- NOTE | 2024-08-10 00:41 | CT_ITS ---
EXAM: CT Abdomen And Pelvis W/O Contrast Injection HISTORY: Kidney Stone TECHNIQUE: Routine protocol CT abdomen and pelvis. IV Contrast: None.. Oral contrast: None. RADIATION DOSAGE (If Supplied By Facility): CTDIvol = ( 8.40 ) mGy, DLP = ( 440.60 ) mGycm Individualized dose optimization techniques were used for this CT. COMPARISON: CT abdomen pelvis . LIMITATIONS: None. FINDINGS: LOWER CHEST: Included lung bases are clear. LIVER: Grossly unremarkable. GALLBLADDER AND BILIARY TREE: Grossly unremarkable. PANCREAS: Grossly unremarkable. SPLEEN: Grossly unremarkable. ADRENAL GLANDS: Grossly unremarkable. KIDNEYS AND URETERS: There is a 3 mm calculus in the distal right ureter at the ureterovesical junction. Right ureter is dilated with moderate right hydronephrosis. Several small calculi in both kidneys. No hydronephrosis on the left. PERITONEUM: No free air. No free fluid. BOWEL: No bowel obstruction. APPENDIX: Not identified. VESSELS: Abdominal aorta is normal caliber. REPRODUCTIVE ORGANS: Grossly unremarkable URINARY BLADDER: Grossly unremarkable. ABDOMINAL WALL: Unremarkable. BONES: No acute abnormalities. Degenerative changes lumbar spine. CT/Abdomen/Pelvis without Cont IMPRESSION: Distal right ureteral calculus with moderate right hydroureteronephrosis. Bilateral nephrolithiasis. Electronically Signed: Thelma Tong MD at 1:35 EST ,
--- NOTE | 2024-08-10 00:47 | ED.RN ---
Pt screaming fuck in room. This nurse to room and asks pt to not yell and scream profanities, pt begins screaming fuck you I will say what the fuck I want to. Security notified of same and security remains in department.
[2024-08-10 00:49] LABS: Absolute Lymphocyte Count 2.91 X10^3/uL (0.83-4.51); Absolute Neutrophil Count 5.7 X10^3/uL (2.0-7.7); Basophil# 0.04 X10^3/uL; Basophil% 0.4 % (0-1); Eosinophil# 0.24 X10^3/uL; Eosinophils% 2.4 % (0-5); Hematocrit 42.6 % (40-54); Hemoglobin 14.7 g/dL (13.0-16.5); Lymphocyte # 2.91 X10^3/ul (0.83-4.51); Lymphocyte % 29.5 % (19-41); Mean Corp Hgb Conc 34.5 g/dL (32-36); Mean Corpuscular Hgb 31.7 pg (27.0-32.0); Mean Corpuscular Volume 91.8 fL (80-94); Mean Platelet Vol. 9.3 fl (6.2-12.0); Monocyte# 0.97 X10^3/uL; Monocyte% 9.8 % (0-10); NRBC Flagged by Analyzer 0 % (0-5); Neutrophil # 5.67 X10^3/uL (2.7-7.7); Neutrophil % 57.6 % (47-70); Platelet Count 351 K/mm3 (150-450); RBC Distribution Width CV 13.3 % (11.6-14.6); RBC Distribution Width SD 45.1 fl (35.1-43.9); Red Blood Count 4.64 M/mm3 (4.6-6.2); White Blood Count 9.9 K/mm3 (4.4-11.0)
[2024-08-10] MEDS: Ondansetron 4 MG/2 ML Vial IV (00:49)
[2024-08-10] MEDS: Ketorolac 15 MG/ML Vial IV (00:49)
[2024-08-10] MEDS: Morphine 4 MG/ML Syringe IV ×2 (00:50→02:06)
[2024-08-10 01:03] LABS: Anion Gap 7 (5-15); BUN 14 mg/dL (7-18); BUN/Creat Ratio 12.1 RATIO (10-20); Calcium,Total 9.7 mg/dL (8.5-10.1); Chloride 105 mmol/L (98-107); Creatinine, Serum 1.16 mg/dL (0.70-1.30); EST Glomerular Filtration Rate 71 mL/min (>60); Est Glom Filt Rate - Afr Amer 86 mL/min (>60); Estimated Creatinine Clearance 83.58 ml/min; Glucose 112 mg/dL (74-106); Potassium 3.4 mmol/L (3.5-5.1); Sodium Level 140 mmol/L (136-145)
[2024-08-10] MEDS: 0.9% Normal Saline (1000mL) 1,000 ML 999 ML IV (01:34)
--- NOTE | 2024-08-10 02:55 | ED.RN ---
Pt comes to nurse station, requests IV to be removed, states he is not waiting for discharge instructions. Ambulates out of department independently.
[2024-08-10 03:02] LABS: Mucous, Urine 0 SEEN /hpf (<or=2+); Squamous Epithelial Cells - UA 0 SEEN /hpf (0-5)
[2024-08-10 03:03] LABS: Color, Urine Amber (Yellow); Glucose, Dipstick Normal (Normal); Ketone-Dipstick Negative (Negative); Leukocyte Esterase-Dipstick 100 /ul (Negative); Nitrite-Dipstick Negative (Negative); Occult Blood-Urine 250 /ul (Negative); Protein-Dipstick 100 mg/dl (Negative); Urine Bilirubin Dipstick Negative (Negative); Urine Clarity Sl. Cloudy (Clear); Urine Urobilinogen 1 mg/dl (Normal)
[2024-08-10 03:13] LABS: Bacteria 2+ /hpf (None Seen); Red Blood Cells-Urine 50-100 SEEN /hpf (0-5); Transitional Epithelial - Ur 0-5 SEEN /hpf (0-5); White Blood Cells 0-5 SEEN /hpf (0-5)
== END 2024-08-10 02:59 | disposition left against medical advice (07) ==
PROVIDERS: Emergency Provider Emergency Medicine; Visit Provider Emergency Medicine
DX: N20.0 Calculus of kidney (principal); R10.9 Unspecified abdominal pain; F17.210 Nicotine dependence, cigarettes, uncomplicated; Z79.899 Other long term (current) drug therapy
CPT/HCPCS: 74176; 80048; 81001; 85025; 96361; 96374; 96375; 96376; 99283; A4216; J2405

== ENCOUNTER 2025-06-02 07:30 | Emergency (ER) | payer MEDICAID, SELFPAY ==
[2025-06-02 07:30] VITALS: BP 139/83; PULSE 78; RESP 19; TEMP 36.1; O2SAT 100; BMI 27.3
--- NOTE | 2025-06-02 07:56 | EX.ED.GUMALE ---
HPI History of Present Illness Chief Complaint: Flank Pain Narrative Narrative: Chief complaint and HPI: 50-year-old male with past medical history of urolithiasis presents for evaluation of right flank pain. Patient states he has passed multiple kidney stones throughout his life. He has not followed with a urologist. Onset of right flank pain yesterday evening. Intermittent. Feels like his previous urolithiasis. Nausea only with pain. He denies any fever, chills, shortness of breath, chest pain, diarrhea, constipation, dysuria. Denies any penile or testicular pain swelling, discharge. Review of systems: See HPI Medications: As listed on the chart Allergies: As listed on the chart PFSH: Per chart Vital signs: As listed on the chart. Reviewed. Physical exam: Gen: A&O x3, NAD Head: Normocephalic, atraumatic Eyes: No sclera icterus, conjunctiva clear ENT: Moist mucous membranes CV: RRR, no murmurs Resp: Lungs CTA BL, no w/r/c GI: Abd soft, non-distended, nontender, no r/r/g : No CVA tenderness Musc: Full ROM, no deformity Skin: Warm, dry Neuro: Alert, oriented, grossly intact, sensation intact Psych: Cooperative, appropriate mood and affect [facility] Medical History History of kidney stones Home Medications ?Medication ?Instructions ?Recorded ?Last Taken ?Type ibuprofen 200 mg tablet (Advil) 400 mg PO Q4H PRN fever or pain 06/02/25 06/02/25 History levofloxacin 750 mg tablet 750 mg PO DAILY 7 days #7 tabs 06/02/25 Unknown Rx ondansetron 4 mg disintegrating 4 mg PO Q8H PRN PRN Nausea #10 tabs 06/02/25 Unknown Rx tablet oxycodone-acetaminophen 5 mg-325 1 tab PO Q6H PRN pain 3 days #12 06/02/25 Unknown Rx mg tablet (Percocet) tabs tamsulosin 0.4 mg capsule (Flomax) 0.4 mg PO DAILY 14 days #14 caps 06/02/25 Unknown Rx Allergy/AdvReac Type Severity Reaction Status Date / Time bismuth subsalicylate (From Allergy HEAT RASH Verified 06/02/25 07:31 Pepto-Bismol) latex Allergy Rash Verified 06/02/25 07:31 Penicillins Allergy HEAT RASH Verified 06/02/25 07:31 Surgical History Hx of neck surgery Social History Smoking Status: Current every day smoker tobacco type: cigarettes EXAM Physical Exam Const Vital Signs: 06/02/25 07:30 06/02/25 10:00 Temperature 96.9 F L Temperature Source Temporal Pulse Rate 78 89 Respiratory Rate 19 H 18 Blood Pressure 139/83 H 134/78 H Blood Pressure Mean 101 96 Pulse Ox 100 98 Oxygen Delivery Method Room Air Room Air MDM MDM MDM Narrative Medical decision making narrative: 50-year-old male with past medical history of urolithiasis presents for evaluation of right flank pain. Patient states he has passed multiple kidney stones throughout his life. He has not followed with a urologist. Onset of right flank pain yesterday evening. Intermittent. Feels like his previous urolithiasis. Differential diagnosis includes but is not limited to urolithiasis, nephrolithiasis, UTI, electrolyte abnormality, gastroenteritis. NS bolus, Zofran, Toradol ordered for symptoms. Laboratory workup ordered including CT abdomen pelvis without contrast. CBC without leukocytosis or anemia. BMP unremarkable without NILAM. UA positive for UTI. Urine culture sent. CT abdomen pelvis shows bilateral nephrolithiasis. Mild right hydronephrosis secondary to 0.5 cm stone in the proximal right ureter. I personally spoke with the radiologist about the read as he contacted me. On reevaluation, patient still having pain, morphine ordered. Pain improved with morphine. Patient is comfortable discharging home however given that this is a proximal stone that is 5 mm with UTI, will consult urology. Patient had a prolonged stay in our emergency department secondary to awaiting callback from urology. I do not have urology available in our hospital therefore I had to consult out to [facility]. Patient was discussed with the urologist, okay to follow-up outpatient. Agrees with antibiotics, pain medicine, Zofran, Flomax. Patient will be placed on a week of Levaquin. First dose given here. Return precautions explained. Follow-up with urology. He confirmed understand the plan. Patient able to discharge home. Patient did leave the emergency department prior to his discharge being written. I did personally contact him over the telephone. He states that he is upstairs as his mother is getting testing performed. He will come back down to obtain his paperwork. He is aware that his prescriptions were sent. Impression: 1. Right proximal urolithiasis with mild hydronephrosis 2. History of urolithiasis 3. UTI Lab Data Labs: Laboratory Results - last 24 hr 06/02/25 06/02/25 08:09 08:39 WBC 10.3 RBC 4.36 L Hgb 14.2 Hct 41.0 MCV 94.0 MCH 32.6 H MCHC 34.6 RDW Std Deviation 45.1 H RDW Coeff of Darvin 13.1 Plt Count 271 MPV 8.9 Immature Gran % (Auto) 0.200 Neut % (Auto) 70.6 H Lymph % (Auto) 20.5 [place] % (Auto) 7.1 Eos % (Auto) 1.3 Baso % (Auto) 0.3 Absolute Neuts (auto) 7.3 Absolute Lymphs (auto) 2.12 Nucleated RBC % 0 Sodium 140 Potassium 4.5 Chloride 105 Carbon Dioxide 25.9 Anion Gap 9 BUN 19 Creatinine 1.10 Estim Creat Clear Calc 78.59 Est GFR (MDRD) Non-Af 82 BUN/Creatinine Ratio 17.0 Glucose 102 H Calcium 9.2 Urine Color Yellow Urine Clarity Sl. Cloudy Urine pH 6.5 Ur Specific [place] 1.015 Urine Protein 30 H Urine Glucose (UA) Normal Urine Ketones Negative Urine Occult Blood 250 H Urine Nitrite Negative Urine Bilirubin Negative Urine Urobilinogen Normal Ur Leukocyte Esterase 100 H Urine RBC 10-25 SEEN Urine WBC 5-10 SEEN Ur Squamous Epith Cells 0-5 SEEN Urine Bacteria 2+ Urine Mucus 2+ Radiography Diagnostic Testing: Clinical Impression(s) from Imaging Studies Abdomen/Pelvis CT 06/02/25 08:24 IMPRESSION: Bilateral nephrolithiasis. There is mild right hydronephrosis secondary to a 0.5 cm stone in the proximal right ureter, image 80/201. Critical results were discussed with Dr. Harris by Dr. Hawley at the time of dictation. Reading Location: [facility] Discharge Plan Triage Chief Complaint: Flank Pain ED Provider: Rodger Cruz Dx/Rx/DC Orders Clinical Impression: Urolithiasis Instructions: ED Kidney Stone with Pain Prescriptions: New levofloxacin 750 mg tablet 750 mg PO DAILY 7 Days Qty: 7 0RF oxycodone-acetaminophen [Percocet] 5-325 mg tablet 1 tab PO Q6H PRN (Reason: pain) 3 Days Qty: 12 0RF tamsulosin [Flomax] 0.4 mg capsule 0.4 mg PO DAILY 14 Days Qty: 14 0RF ondansetron 4 mg tablet,disintegrating 4 mg PO Q8H PRN PRN (Reason: Nausea) Qty: 10 0RF No Action ibuprofen [Advil] 200 mg tablet 400 mg PO Q4H PRN (Reason: fever or pain) Primary Care Provider: Care Physician,Sojna Primary Referrals: Tonny Henson MD [Med Staff - Active Staff, Urology] - 3-5 Days Evens Durbin MD [Med Staff - Active Staff, Family Practice] - 3-5 Days Activity Restrictions/Additional Instructions: Return back to the ED if symptoms change or worsen. You need to follow-up with your urologist. Take all of your antibiotic. Print Language: Urdu Disposition Disposition: Home, Self Care Discharge Date/Time: 06/02/25 11:45
[2025-06-02] MEDS: Ketorolac 30 MG/ML Syringe IV (08:07)
[2025-06-02] MEDS: 0.9% Normal Saline (1000mL) 1,000 ML 999 ML IV (08:08)
[2025-06-02 08:15] LABS: Hematocrit 41.0 % (40-54); Hemoglobin 14.2 g/dL (13.0-16.5); Immature Granulocytes Count 0.020 X10^3/uL (0.0-0.0); Mean Corp Hgb Conc 34.6 g/dL (32-36); Mean Corpuscular Volume 94.0 fL (80-94); Mean Platelet Vol. 8.9 fl (6.2-12.0); NRBC Flagged by Analyzer 0 % (0-5); Platelet Count 271 K/mm3 (150-450); RBC Distribution Width CV 13.1 % (11.6-14.6); RBC Distribution Width SD 45.1 fl (35.1-43.9); Red Blood Count 4.36 M/mm3 (4.6-6.2); White Blood Count 10.3 K/mm3 (4.4-11.0)
--- NOTE | 2025-06-02 08:24 | CT_ITS ---
PROCEDURE: ABDOMEN/PELVIS WITHOUT CONT 06/02/2025 REASON FOR EXAM: RIGHT FLANK PAIN, HISTORY OF UROLITHIASIS TECHNIQUE: Procedure Code: CTABDPEL Modality: CT Procedure: ABDOMEN/PELVIS WITHOUT CONT Noncontrast technique limits evaluation of the abdominal and pelvic viscera. Coronal and Sagittal reconstruction series were provided. One or more dose reduction techniques were used (e.g., Automated exposure control, adjustment of the mA and/or kV according to patient size, use of iterative reconstruction technique). RADIATION DOSE SUMMARY: DLP: 518.3 mGycm COMPARISON: August 10, 2024 FINDINGS: Lung bases: Clear Liver: Unremarkable Gallbladder: Unremarkable Spleen: Unremarkable Pancreas: Unremarkable Adrenals: Unremarkable Kidneys: There are multiple right renal stones with the largest in the upper pole measuring 0.4 cm. There is mild right hydronephrosis secondary to a 0.5 cm stone in the proximal right ureter, image 80/201. The left kidney shows multiple stones with the largest measuring 0.3 cm in the lower pole. There is no ureteral stone or hydronephrosis on the left. Bladder: Unremarkable Reproductive Organs: Unremarkable Bowel: Gas and stool is noted in the colon with a moderate stool load. The small-bowel loops are nondistended. Appendix: Within normal limits Lymph nodes: There is no pathologic adenopathy by size criteria. Vasculature: Atherosclerotic calcifications are noted. Peritoneum / Retroperitoneum: There is no free air or free fluid. Bones: There is no acute bony abnormality. CT/Abdomen/Pelvis without Cont IMPRESSION: Bilateral nephrolithiasis. There is mild right hydronephrosis secondary to a 0.5 cm stone in the proximal right ureter, image 80/201. Critical results were discussed with Dr. Harris by Dr. Hawley at the time o f dictation. Reading Location: [facility]
[2025-06-02 08:41] LABS: Anion Gap 9 (5-15); BUN 19 mg/dL (4-19); BUN/Creat Ratio 17.0 RATIO (10-20); Calcium,Total 9.2 mg/dL (7.6-11.0); Carbon Dioxide 25.9 mmol/L (21.0-32.0); Chloride 105 mmol/L (98-108); Estimated Creatinine Clearance 78.59 ml/min (50-250); Glucose 102 mg/dL (70-99); Potassium 4.5 mmol/L (3.3-5.1)
[2025-06-02 08:46] LABS: Color, Urine Yellow (Yellow); Glucose, Dipstick Normal (Normal); Ketone-Dipstick Negative (Negative); Leukocyte Esterase-Dipstick 100 /ul (Negative); Nitrite-Dipstick Negative (Negative); Occult Blood-Urine 250 /ul (Negative); Protein-Dipstick 30 mg/dl (Negative); Specific Gravity, Urine 1.015 (1.002-1.030); Urine Bilirubin Dipstick Negative (Negative)
[2025-06-02 08:52] LABS: Mucous, Urine 2+ /hpf (<or=2+); Red Blood Cells-Urine 10-25 SEEN /hpf (0-5); Squamous Epithelial Cells - UA 0-5 SEEN /hpf (0-5)
[2025-06-02 10:00] VITALS: BP 134/78; PULSE 89; RESP 18; O2SAT 98
--- NOTE | 2025-06-02 11:42 | ED.RN ---
THIS NURSE INFORMED AT THIS TIME THE PATIENT HAS LEFT THE DEPARTMENT BEFORE D/C INSTRUCTIONS. I WAS ALSO INFORMED THAT THE MEDIC Sheila EM CHASED HIM DOWN TO REMOVE HIS SALINE LOCK.
== END 2025-06-02 11:45 | disposition home or self-care (01) ==
LOC: ED 08:11
PROVIDERS: Emergency Provider Surgery; Visit Provider Surgery
DX: N13.6 Pyonephrosis (principal); F17.210 Nicotine dependence, cigarettes, uncomplicated
CPT/HCPCS: 74176; 80048; 81001; 85025; 87086; 96361; 96374; 96375; 96376; 99283; A4216; J2405

== ENCOUNTER 2025-06-10 12:05 | Emergency (ER) | payer MEDICAID, SELFPAY ==
[2025-06-10 12:05] VITALS: BP 113/87; PULSE 103; RESP 14; TEMP 36.6; O2SAT 98; BMI 29.0
--- NOTE | 2025-06-10 13:23 | ED.RN ---
Pt demanding pain mediation, RN informed pt that there is no physician currently signed up for his care. Pt stated, It's not that hard to get a fucking doctor just go get one Carol RN and Yuliana RN into room, stated that pt needed to be kind to staff and wait patiently for a physician to evaluate pt. Pt stated for all staff to exit room.
--- NOTE | 2025-06-10 13:24 | ED.RN ---
Pt was advised that is not to be yelling at the nursing. Pt continues to yell at the staff and ask for pain meds. Pt was advised that we were not able to give him anything until the physician sees him. He continued to yell. Pt was told he can either be calm or he can leave. Security is in the department.
--- NOTE | 2025-06-10 13:52 | CT_ITS ---
PROCEDURE: ABDOMEN/PELVIS WITHOUT CONT 06/10/2025 REASON FOR EXAM: PAIN TECHNIQUE: Procedure Code: CTABDPEL Modality: CT Procedure: ABDOMEN/PELVIS WITHOUT CONT Noncontrast technique limits evaluation of the abdominal and pelvic viscera. Coronal and Sagittal reconstruction series were provided. One or more dose reduction techniques were used (e.g., Automated exposure control, adjustment of the mA and/or kV according to patient size, use of iterative reconstruction technique). RADIATION DOSE SUMMARY: DLP: 456 mGycm COMPARISON: 06/02/2025 FINDINGS: Limited sections of the lung bases demonstrate no focal pulmonary mass or consolidations. The liver, spleen, pancreas, and both adrenal glands demonstrate no acute findings. The gallbladder is contracted The stomach is unremarkable. The small bowel loops are not dilated. The appendix is not clearly identified, although there are no secondary signs of appendicitis. No colonic obstruction. Colonic diverticulosis without acute diverticulitis. There is no free air or significant free fluid. 5 mm obstructive stone at the distal right ureter with associated mild hydroureteronephrosis. Scattered nonobstructive stones within the bilateral kidneys. No hydronephrosis of the left collecting system. Moderately thickened urinary bladder wall which may reflect cystitis vs nondistention; consider correlation with urinalysis. The pelvic structures are intact. There is no solid pelvic mass. No significant lymphadenopathy. The aorta and IVC demonstrate no acute findings. Minimal atherosclerosis of the abdominal vasculature. Visualized osseous structures demonstrate no acute abnormality. CT/Abdomen/Pelvis without Cont IMPRESSION: 5 mm obstructive stone at the distal right ureter with associated mild hydroure teronephrosis. Moderately thickened urinary bladder wall which may reflect cystitis vs nondist ention; consider correlation with urinalysis. Reading Location: [id number]
--- NOTE | 2025-06-10 13:53 | EX.ED.GUMALE ---
HPI History of Present Illness Chief Complaint: Flank Pain Informant: patient Pain Onset: Today Context: Gradual Onset Timing: Continuous Current Severity: Mild Maximum Severity: Mild Narrative Narrative: 50-year-old male history of kidney stones that has had about 9 before. Has never needed surgery. Has had a prior appendectomy. Patient states that he was seen here about a week and a half ago diagnosed with a 5 mm kidney stone. Was placed on Flomax, pain medication and antibiotics. He is finished those. Said this morning he got right flank and lower quadrant pain. Previously was feeling better. He thinks he has another stone. He denies any vomiting. No diarrhea. No fever. No dysuria. Prior similar symptoms: Yes Recent Illness/Hospitalization: No PFSH PFS Medical History History of kidney stones Home Medications ?Medication ?Instructions ?Recorded ?Last Taken ?Type ibuprofen 200 mg tablet (Advil) 400 mg PO Q4H PRN fever or pain 06/02/25 06/02/25 History levofloxacin 750 mg tablet 750 mg PO DAILY 7 days #7 tabs 06/02/25 Unknown Rx ondansetron 4 mg disintegrating 4 mg PO Q8H PRN PRN Nausea #10 tabs 06/02/25 Unknown Rx tablet oxycodone-acetaminophen 5 mg-325 1 tab PO Q6H PRN pain 3 days #12 06/02/25 Unknown Rx mg tablet (Percocet) tabs tamsulosin 0.4 mg capsule (Flomax) 0.4 mg PO DAILY 14 days #14 caps 06/02/25 Unknown Rx oxycodone-acetaminophen 7.5 mg-325 1 tab PO Q8H PRN pain 3 days #12 06/10/25 Unknown Rx mg tablet (Percocet) tabs Allergy/AdvReac Type Severity Reaction Status Date / Time bismuth subsalicylate (From Allergy HEAT RASH Verified 06/10/25 12:05 Pepto-Bismol) latex Allergy Rash Verified 06/10/25 12:05 Penicillins Allergy HEAT RASH Verified 06/10/25 12:05 Surgical History Hx of neck surgery Social History Smoking Status: Current every day smoker tobacco type: cigarettes ROS ROS ED ROS Narrative Right flank pain. Constitutional Constitutional ED: Denies chills or fever(s) Eyes Eyes: Denies blurry vision ENT ENT ED: Denies ear pain Cardiovascular Cardiovascular: Denies chest pain Respiratory/Chest Respiratory/Chest: Denies cough or dyspnea Gastrointestinal Gastrointestinal: Reports abdominal pain; Denies constipation, diarrhea, melena, nausea or vomiting Genitourinary Genitourinary ED: Denies dysuria or hematuria Musculoskeletal Musculoskeletal: Denies arthralgias or back pain Integumentary Denies abscess Neurologic Neurologic: Denies headache(s) Psychiatric Psychiatric: Denies anxiety Endocrine Endocrinology: Denies polydipsia Hematologic/Lymphatic Hematologic/Lymphatic: Denies easy bleeding, easy bruising or lymphadenopathy Allergic/Immunologic Allergic/Immunologic ED: Denies mouth swelling, tongue swelling or urticaria EXAM Physical Exam Narrative Exam Narrative: Well-appearing middle-aged male. Vital signs stable afebrile. No distress. H EENT exam pupils round react light. Moist mucous members. Neck nontender JVD. Lungs clear to auscultation bilateral. Heart regular rhythm no murmur. Chest wall ribs nontender. Abdomen soft, nontender nondistended, normal bowel sounds without peritoneal signs. Moving all 4 extremities. Back nontender. Neurologically he is awake alert. Answer questions following commands. Patient appears very comfortable. No distress. Const Vital Signs: 06/10/25 12:05 06/10/25 14:05 Temperature 98 F Temperature Source Temporal Pulse Rate 103 H 90 Respiratory Rate 14 17 Blood Pressure 113/87 H 115/77 Blood Pressure Mean 95 89 Pulse Ox 98 97 Oxygen Delivery Method Room Air Room Air Positive well nourished and well developed; Negative for cachectic, contractures or unkempt General Appearance ED: well developed and NAD; Negative for unkempt, cachectic, contractures or pallor Nutritional Appearance: Negative for cachectic HEENT Reports moist mucous membranes normocephalic and atraumatic Eyes PERRL and EOMs intact bilaterally Neck no lymphadenopathy, supple and no JVD Resp normal respiratory effort and clear to auscultation bilaterally Cardio regular rate, regular rhythm, S1 normal heart sound, S2 normal heart sound and no murmurs GI non-tender, non-distended and no masses Auscultation: normoactive bowel sounds Palpation: soft; Negative for tender or guarding no CVA tenderness Bladder / Kidney Exam: No CVA tenderness Groin / Perineum Exam: Negative for edema or lesions Back/Spine no CVA tenderness General Back: Negative for CVA tenderness Cervical Spine: Negative for cervical spine tenderness Thoracic Spine / Upper Back: Negative for thoracic spinal tenderness Lumbar Spine / Lower Back: Negative for lumbar spinal tenderness Extremity normal to inspection General Extremety ED: Negative for edema, pulses abnormal or tenderness General Extremity: Negative for edema or pulses abnormal Neuro oriented x3, CN's II-XII intact bilaterally, moves all extremities and no focal motor deficits Sensorium / Orientation: alert, oriented to person, oriented to place and oriented to time; Negative for orientation impaired Motor Exam: strength 5/5 throughout Psych mental status grossly normal Appearance: Negative for unkempt Skin General Skin Exam: Negative for jaundice or pallor Lesions: no lesions Rashes: no rashes MDM MDM MDM Narrative Medical decision making narrative: 50-year-old male well-known to this emergency department. Flank pain. Prior appendectomy. History of kidney stones. CAT scan will be obtained. UA. IV Toradol. I reviewed his recent labs and recent CAT scan. The patient is doing well. He will be given Dilaudid for pain. His CAT scan did reveal the same kidney stone of 5 mm in the right distal ureter with hydroureter and hydronephrosis. Urine is clean. Patient be discharged to home. He already has Flomax at home. Limited Percocet for pain. Outpatient follow-up for. He is comfortable with the plan. History & Record Review Discussion w/independent historian: Patient Additional record(s) reviewed:: Prior inpatient record, Prior outpatient record, Prior ED visit and Prior labs Lab Data Attestation: I reviewed the patient's lab results. Lab results narrative: UA normal. 150 occult blood. No nitrates. No white or red cells. No bacteria. CAT scan consistent with a distal right ureteral 5 mm renal calculi with hydronephrosis and hydroureter. Labs: Laboratory Results - last 24 hr 06/10/25 14:06 Urine Color Yellow Urine Clarity Clear Urine pH 6.5 Ur Specific [place] 1.030 Urine Protein 15 H Urine Glucose (UA) Normal Urine Ketones Negative Urine Occult Blood 150 H Urine Nitrite Negative Urine Bilirubin Negative Urine Urobilinogen Normal Ur Leukocyte Esterase Negative Urine RBC 0-5 SEEN Urine WBC 0 SEEN Ur Squamous Epith Cells 0 SEEN Urine Bacteria 0 SEEN Urine Mucus 0 SEEN Radiography Diagnostic Testing: Clinical Impression(s) from Imaging Studies Abdomen/Pelvis CT 06/10/25 13:52 IMPRESSION: 5 mm obstructive stone at the distal right ureter with associated mild hydroureteronephrosis. Moderately thickened urinary bladder wall which may reflect cystitis vs nondistention; consider correlation with urinalysis. Reading Location: [facility] Discharge Plan Triage Chief Complaint: Flank Pain ED Provider: George Covarrubias Dx/Rx/DC Orders Clinical Impression: Kidney stone on right side Instructions: ED Kidney Stone with Pain Prescriptions: New oxycodone-acetaminophen [Percocet] 7.5-325 mg tablet 1 tab PO Q8H PRN (Reason: pain) 3 Days Qty: 12 0RF No Action ibuprofen [Advil] 200 mg tablet 400 mg PO Q4H PRN (Reason: fever or pain) levofloxacin 750 mg tablet 750 mg PO DAILY 7 Days Qty: 7 0RF oxycodone-acetaminophen [Percocet] 5-325 mg tablet 1 tab PO Q6H PRN (Reason: pain) 3 Days Qty: 12 0RF tamsulosin [Flomax] 0.4 mg capsule 0.4 mg PO DAILY 14 Days Qty: 14 0RF ondansetron 4 mg tablet,disintegrating 4 mg PO Q8H PRN PRN (Reason: Nausea) Qty: 10 0RF Primary Care Provider: Care Physician,No Primary Referrals: Tonny Henson MD [Med Staff - Active Staff, Urology] - As soon as possible Care Physician,No Primary [Primary Care Provider, Medical] Activity Restrictions/Additional Instructions: Plenty of fluids Percocet for severe pain. Also use Motrin or ibuprofen. Flomax daily. Follow-up with the urologist if not getting better. Watch your urine to see if you passed a stone. Return if worsening pain or fever. Print Language: [place]agu[place] Disposition Disposition: Home, Self Care
[2025-06-10] MEDS: Ketorolac 30 MG/ML Syringe IV (14:00)
[2025-06-10 14:05] VITALS: BP 115/77; PULSE 90; RESP 17; O2SAT 97
[2025-06-10 14:11] LABS: Mucous, Urine 0 SEEN /hpf (<or=2+); Squamous Epithelial Cells - UA 0 SEEN /hpf (0-5)
--- NOTE | 2025-06-10 14:13 | ED.RN ---
RN into room to medicate and to start IV. Pt apologized for cursing and using forceful language with staff members. Stated he has been in pain for days and just wanted to feel better. RN validated pt feelings, continued with care.
[2025-06-10 14:24] LABS: Color, Urine Yellow (Yellow); Glucose, Dipstick Normal (Normal); Ketone-Dipstick Negative (Negative); Leukocyte Esterase-Dipstick Negative /ul (Negative); Nitrite-Dipstick Negative (Negative); Occult Blood-Urine 150 /ul (Negative); Protein-Dipstick 15 mg/dl (Negative); Specific Gravity, Urine 1.030 (1.002-1.030); Urine Bilirubin Dipstick Negative (Negative)
[2025-06-10 14:33] LABS: Red Blood Cells-Urine 0-5 SEEN /hpf (0-5)
--- NOTE | 2025-06-10 14:40 | ED.RN ---
Wrote note for Dr. Covarrubias @ [phone] for more pain medication. Followed up with Dr. Covarrubias face to face @ [phone], stated he would evaluate his CT scan. Pt informed.
--- NOTE | 2025-06-10 15:00 | ED.RN ---
Pt called out and asked if CT results were back yet. I looked in the computer and advised him it was not. Pt also asked if his UTI was better and I went over the UA results with the pt compared to last time. He stated that he finished his antibiotic yesterday. I asked pt if he had any other questions or needed anything else and he said No thank you tari'am.
[2025-06-10] MEDS: HYDROmorphone 0.5 MG/0.5 ML SYRINGE IV (15:15)
[2025-06-10 15:19] VITALS: BP 108/70; PULSE 88; RESP 15; TEMP 36.6; O2SAT 97
== END 2025-06-10 15:37 | disposition home or self-care (01) ==
PROVIDERS: Emergency Provider Emergency Medicine; Visit Provider Emergency Medicine
DX: N13.2 Hydronephrosis with renal and ureteral calculous obstruction (principal); N13.4 Hydroureter; F17.210 Nicotine dependence, cigarettes, uncomplicated
CPT/HCPCS: 74176; 81001; 96374; 96375; 96376; 99283; A4216

== ENCOUNTER 2025-06-16 04:45 | Emergency (ER) | payer MEDICAID, SELFPAY ==
[2025-06-16 04:46] VITALS: BP 140/97; PULSE 113; RESP 18; TEMP 36.6; O2SAT 98; BMI 29.2
--- OUTSIDE RECORDS SUMMARY | 2025-06-16 05:28 | XMS RPT_ITS | CCD ---
Demographics Address [address] [place] [address] Mobile Phone Preferred Language en Marital Status Mandaen Affiliation Unknown Race White Ethnic Group Not or Lati no Author Organization [facility] Care Team Providers Care Orthophotography Technician Name Role Phone PEDRO LOYA Unavailable Unavailable PHYSICIAN, NONE Unavailable Unavailable ISIDRO SON Referring Unavailable PROVIDER, UNKNOWN Attending Unavailable PROVIDER, UNKNOWN Admitting Unavailable Unavailable Primary Care Provider Trinidad Ruiz CNP Primary Care Provider Unavailable Primary Care Provider TRINIDAD Ruiz Primary Care Unavailable DEBBY BRAUN Attending Unavailable TRINIDAD SAAVEDRA Primary Care Unavailable Care Physician, No Primary Primary Care Physicia n Unavailable Dr. Rodger Cruz DO Attending Physician Dr. Rodger Cruz DO Emergency Departmen t Physician Dr. George Covarrubias MD Emergency Department Physici an Care Physician, No Primary Primary Care Unava ilable Seferino Boateng Attending Unavailable Rodger Cruz Attending Unavailabl e Care Physician, No Primary Primary Care Unava ilable George Covarrubias Attending Unavailable Care Physician, No Primary Primary Care Unava ilable Allergies Allergy Classification Reported Allergen(s) Allergy Type Date of Onset Reaction(s) Facility (14 sources) bismuth subsalicylate; Translations: [BISMUTH SUBSALICYLATE] Drug Allergy 7 Rash [facility] (2 sources) [facility]; Translations: [ANIMALS] Propensity to adverse reactions (disorder) 7 Rash [facility] (14 sources) Latex; Translations: [LATEX] Propensity to adverse reactions to drug (disorder) 4 Rash [facility] (14 sources) Penicillins; Translations: [PENICILLINS] Propensity to adverse reactions to drug (disorder) 09-11-201 4 Rash [facility] (5 sources) Anish; Translations: [WOOL] Propensity to adverse reactions 7 Rash [facility] Medications Current Medications Medication Drug Class(es) Dates Sig (Normalized) Sig (Original) acetaminophen 325 mg / oxyCODONE hydrochloride 7.5 mg oral tablet (4 sources) Opioid Agonist Start: 06-10-2025 take 1 tablet by mouth every eight hours as needed for pain Start: 06-10-2025 take 1 tablet by mouth every e ight hours as needed for pain Start: 06-02-2025 take 1 tablet by mouth every s ix hours as needed for pain bisacodyl 10 mg rectal suppository (1 source) Stimulant Laxative Start: 11-25-2016 bisacodyl (DULCOLAX) 10 MG suppository Insert 1 Suppository in the rectum daily as needed for Constipation. 0 11/25/2016 Active clindamycin 300 mg oral capsule (1 source) Lincosamide Antibacterial Start: 04-03-2022 take 1 capsule by mouth every six hours Clindamycin Hcl (Cleocin Hcl) 300 MG capsule Active 300 MG PO EVERY 6 HOURS April 03, 2022 12:00am docusate sodium 100 mg oral capsule (1 source) Start: 11-25-2016 take 1 capsule by mouth twice daily docusate sodium (COLACE) 100 MG capsule Take 1 Capsule by mouth 2 times daily for 3 days. 60 Capsule 0 11/25/2016 Active gabapentin 300 mg oral capsule (1 source) Anti-epileptic Agent Start: 05-22-2019 take 300 mg by mouth once daily Gabapentin Active 300 MG PO DAILY May 22, 2019 12:00am ibuprofen 200 mg oral tablet (3 sources) Nonsteroidal Anti-inflammatory Drug Start: 06-02-2025 take 2 tablets by mouth every four hours as needed for pain Start: 05-22-2019 take 600 mg by mouth every eight hours as needed Ibuprofen Active 600 MG PO EVERY 8 HOURS NEEDED May 22, 2019 12:00am levoFLOXacin 750 mg oral tablet (2 sources) Quinolone Antimicrobial Start: 06-02-2025 take 1 tablet by mouth once daily magnesium hydroxide 80 mg/ml oral suspension (1 source) Start: 11-25-2016 take 30 mL by mouth every eight hours as needed for constipation magnesium hydroxide (MILK OF MAGNESIA) 400 MG/5ML oral suspension Take 30 mL by mouth every 8 hours as needed for Constipation for up to 2 days. 1 Bottle 0 11/25/2016 Active ondansetron 4 mg disintegrating oral tablet (5 sources) Serotonin-3 Receptor Antagonist Start: 08-10-2024 End: 06-02-2025 take 1 tablet by mouth every eight hours as needed for nausea End: 01-03-2024 ondansetron (ZOFRAN, HYDR OCHLORIDE,) 4 mg tablet Take 4 mg by mouth as needed. 0 01/03/2024 Discontinued sennosides, care home 8.6 mg oral tablet (1 source) Start: 11-25-2016 take 1 tablet by mouth once daily as needed for constipation senna (SENOKOT) 8.6 MG tablet Take 1 Tablet by mouth daily as needed for Constipation. 30 Tablet 0 11/25/2016 Active tamsulosin hydrochloride 0.4 mg oral capsule (2 sources) alpha-Adrener gic Karin Start: 06-02-2025 take 1 capsule by mouth once daily Completed/Discontinued Medications Medication Drug Class(es) Dates Sig (Normalized) Sig (Original) acetaminophen 325 mg / HYDROcodone bitartrate 5 mg oral tablet (19 sources) Opioid Agonist Start: 09-28-2022 End: 08-10-2024 Hydrocodone-Acetami nophen 5-325 mg tablet Discontinued 1 {tbl} PO EVERY 6 HOURS NEEDED as needed for Pain 10 3 0 September 28, 2022 August 10, 2024 1:40am Calculus of distal left ureter Calculus of ureter Start: 09-28-2022 take 1 tablet by jordyn th every six hours as needed Hydrocodone-Acetaminophen Active 1 TABLE T PO EVERY 6 HOURS NEEDED 10 3 September 28, 2022 Start: 06-06-2022 End: 08-10-2024 Hydrocodone-Acetaminophen 5- 325 mg tablet Discontinued 1 {tbl} PO EVERY 4 HOURS NEEDED as needed for Pain 10 2 0 June 08, 2022 August 10, 2024 1:41am Urolithiasis Urinary calculus, unspecified Start: 06-06-2022 take 1 tablet by jordyn th every four hours as needed Hydrocodone-Acetaminophen Active 1 TABLE T PO EVERY 4 HOURS NEEDED 10 2 June 08, 2022 Start: 06-04-2019 End: 06-10-2019 Hydrocodone-Acetaminophen 1 TABLET tablet Discontinued 1 {tbl} PO EVERY 4 HOURS NEEDED as needed for Pain 14 2 0 June 04, 2019 June 05, 2019 12:00am June 10, 2019 12:09am Fracture of phalanx of finger of right hand Start: 06-04-2019 End: 06-10-2019 take 1 tablet by mouth every four hours as needed Hydrocodone-Acetaminophen Discontinued 1 TABLET PO EVERY 4 HOURS NEEDED 14 2 June 04, 2019 June 09, 2019 11:09pm citalopram 40 mg oral tablet (1 source) Serotonin Reuptake Inhibitor Start: 10-01-2014 End: 01-03-2024 take 1 tablet by mouth once daily citalopram (CELEXA) 40 mg tablet Take 1 tablet by mouth once daily. 30 tablet 5 10/01/2014 01/03/2024 Discontinued clonazePAM 1 mg oral tablet (1 source) Benzodiazepine Start: 10-01-2014 End: 01-03-2024 take 1 tablet by mouth every twelve hours as needed clonazePAM (KLONOPIN) 1 mg tablet Take 1 tablet by mouth twice daily as needed. 60 tablet 1 10/01/2014 01/03/2024 Discontinued cyclobenzaprine hydrochloride 10 mg oral tablet (1 source) Muscle Relaxant Start: 11-03-2014 End: 01-03-2024 take 1 tablet by mouth every eight hours as needed cyclobenzaprine (FLEXERIL) 10 mg tablet Take 1 tablet by mouth three times daily as needed for Muscle Spasm. 0 11/03/2014 01/03/2024 Discontinued oxyCODONE hydrochloride 5 mg oral capsule (2 sources) Opioid Agonist Start: 08-10-2024 End: 06-02-2025 take 1 capsule by mouth every six hours as needed for pain Oxycodone 5 mg capsule Discontinued 5 mg PO EVERY 6 HOURS as needed for pain 12 3 0 August 10, 2024 June 02, 2025 11:02am Calculus of kidney Calculus of kidney sertraline 50 mg oral tablet (6 sources) Serotonin Reuptake Inhibitor Start: 08-10-2024 End: 06-02-2025 take 1 tablet by mouth once daily Sertraline 50 mg tablet Discontinued 50 mg PO DAILY August 10, 2024 1:00am June 02, 2025 11:02am Start: 08-06-2024 take 1 tablet by jordyn th once daily sertraline (ZOLOFT) 50 mg tablet Indications: ANN (generalized anxiety disorder) Take 1 tablet by mouth once daily. 30 tablet 0 04/16/2024 Active Start: 03-22-2024 End: 04-16-2024 take 1 tablet by mouth once daily sertraline (ZOLOFT) 25 mg tablet Indications: ANN (generalized anxiety disorder) Take 1 tablet by mouth once daily. 30 tablet 2 03/22/2024 04/16/2024 Discontinued traZODone hydrochloride 150 mg oral tablet (1 source) Serotonin Reuptake Inhibitor Start: 12-22-2014 End: 01-03-2024 take 2 tablets by mouth once daily at bedtime traZODone (DESYREL) 150 mg tablet Take 2 tablets by mouth daily at bedtime. 60 tablet 0 12/22/2014 01/03/2024 Discontinued Problems Active Problems Problem Classification Problem Date Documented Date Episodic/Chronic Abdominal pain (12 sources) Right flank pain; Translations: [Unspecified abdominal pain] Onset: 06-02-2025 06-14-2022 Episodic Anxiety disorders (2 sources) Generalized anxiety disorder; Translations: [Generalized anxiety disorder] 03-22-2024 Chronic Blindness and vision defects (4 sources) Blurring of visual image; Translations: [Other visual disturbances] 07-19-2022 Episodic Calculus of urinary tract (20 sources) Urolithiasis ; Translations: [Urinary calculus, unspecified] Onset: 06-10-2025 09-28-2022 Episodic Cardiac dysrhythmias (1 source) Palpitations; Translations: [Palpitations] 01-03-2024 Episodic Epilepsy; convulsions (2 sources) Neurological finding; Translations: [Unspecified convulsions] 12-11-2022 Episodic Esophageal disorders (5 sources) Gastroesophageal reflux disease; Translations: [Gastro-esophageal reflux disease without esophagitis] Onset: 05-25-2007 06-03-2019 Chronic Headache; including migraine (2 sources) Headache; Translations: [Intractable headache] Onset: 08-26-2017 08-26-2017 Episodic Immunizations and screening for infectious disease (1 source) Viral screening status; Translations: [Encounter for screening for other viral diseases] 03-22-2024 Episodic Nonspecific chest pain (1 source) Right sided chest pain; Translations: [Chest pain, unspecified] 01-03-2024 Episodic Osteoarthritis (1 source) Arthritis of knee; Translations: [Unilateral primary osteoarthritis, unspecified knee] Onset: 06-26-2019 06-26-2019 Chronic Other aftercare (6 sources) Patient encounter status; Translations: [Encounter for other specified aftercare] Onset: 05-30-2017 05-30-2017 Episodic Other injuries and conditions due to external causes (2 sources) Disorder of eye; Translations: [Foreign body on external eye, part unspecified, unspecified eye, initial encounter] 07-19-2022 Episodic Other injuries and conditions due to external causes (2 sources) Foreign body in eye; Translations: [Foreign body on external eye, part unspecified, unspecified eye, initial encounter] 07-19-2022 Episodic Other lower respiratory disease (1 source) Dyspnea; Translations: [Shortness of breath] 01-03-2024 Episodic Other nervous system disorders (1 source) Spinal cord disease; Translations: [Disease of spinal cord, unspecified] Onset: 09-28-2016 11-24-2016 Chronic Other nutritional; endocrine; and metabolic disorders (1 source) Body mass index 30+ - obesity; Translations: [Obesity, unspecified] Onset: 06-26-2019 06-26-2019 Chronic Other upper respiratory disease (5 sources) Allergic rhinitis; Translations: [Allergic rhinitis, unspecified] Onset: 05-25-2007 06-03-2019 Chronic Other upper respiratory infections (1 source) Sore throat symptom; Translations: [Acute pharyngitis, unspecified] 01-03-2024 Episodic Spondylosis; intervertebral disc disorders; other back problems (20 sources) Displacement of cervical intervertebral disc; Translations: [Other cervical disc displacement, unspecified cervical region] Onset: 05-15-2014 06-03-2019 Chronic Substance-related disorders (9 sources) Tobacco user; Translations: [Nicotine dependence, unspecified, uncomplicated] Onset: 05-25-2007 Resolved: 09-03-2014 06-03-2019 Chronic Viral infection (2 sources) Acute viral disease; Translations: [Viral infection, unspecified] 12-11-2022 Episodic Past or Other Problems Problem Classification Problem Date Documented Date Episodic/Chronic Acquired foot deformities (1 source) Foot-drop; Translations: [Foot drop, unspecified foot] Onset: 09-29-2017 11-06-2017 Episodic Alcohol-related disorders (4 sources) Nondependent alcohol abuse in remission; Translations: [Alcohol abuse, in remission] Onset: 05-25-2007 Resolved: 09-03-2014 09-03-2014 Chronic Other connective tissue disease (1 source) History of spinal fusion; Translations: [Arthrodesis status] Onset: 12-02-2016 12-02-2016 Episodic Other connective tissue disease (1 source) Neuropathic pain; Translations: [Neuralgia and neuritis, unspecified] Onset: 05-21-2019 05-21-2019 Episodic Other nervous system disorders (5 sources) Sensory disorder of smell and/or taste; Translations: [Unspecified disturbances of smell and taste] Onset: 05-25-2007 06-03-2019 Episodic Other non-traumatic joint disorders (1 source) Pain in right hip joint; Translations: [Pain in right hip] Onset: 07-30-2019 07-30-2019 Episodic Residual codes; unclassified (1 source) History of surgical procedure on cervical spine; Translations: [Other specified postprocedural states] Onset: 05-21-2019 05-21-2019 Episodic Residual codes; unclassified (1 source) History of operative procedure on lumbosacral spinal structure; Translations: [Other specified postprocedural states] Onset: 05-21-2019 07-01-2019 Episodic Spondylosis; intervertebral disc disorders; other back problems (20 sources) Lumbar radiculopathy; Translations: [Radiculopathy, lumbar region] Onset: 05-15-2014 07-01-2019 Episodic Results Test Name Value Interpretation Reference Range Facility Abdomen/Pelvis without Conto n 06-10-2025 Abdomen/Pelvis without Cont [facility] [address] [place] [address] [id number] Abdomen/Pelvis without Cont MR#: [id number] Acct: [id number] Name: SIDDHARTH KEYES Rep #: [id number] : 1975 M 50 From: Yousuf Bell PCP: Care Physician,No Primary Status: REG ER Study: Abdomen/Pelvis without Cont Date of Exam: 05/14 Exam# [id number] Ordering Dr: George Covarrubias MD PROCEDURE: ABDOMEN/PELVIS WITHOUT CONT 06/10/2025 REASON FOR EXAM: PAIN TECHNIQUE: Procedure Code: CTABDPEL Modality: CT Procedure: ABDOMEN/PELVIS WITHOUT CONT Noncontrast technique limits evaluation of the abdominal and pelvic viscera. Coronal and Sagittal reconstruction series were provided. One or more dose reduction techniques were used (e.g., Automated exposure control, adjustment of the mA and/or kV according to patient size, use of iterative reconstruction technique). RADIATION DOSE SUMMARY: DLP: 456 mGycm COMPARISON: 06/02/2025 FINDINGS: Limited sections of the lung bases demonstrate no focal pulmonary mass or consolidations. The liver, spleen, pancreas, and both adrenal glands demonstrate no acute findings. The gallbladder is contracted The stomach is unremarkable. The small bowel loops are not dilated. The appendix is not clearly identified, although there are no secondary signs of appendicitis. No colonic obstruction. Colonic diverticulosis without acute diverticulitis. There is no free air or significant free fluid. 5 mm obstructive stone at the distal right ureter with associated mild hydroureteronephrosis. Scattered nonobstructive stones within the bilateral kidneys. No hydronephrosis of the left collecting system. Moderately thickened urinary bladder wall which may reflect cystitis vs nondistention; consider correlation with urinalysis. The pelvic structures are intact. There is no solid pelvic mass. No significant lymphadenopathy. The aorta and IVC demonstrate no acute findings. Minimal atherosclerosis of the abdominal vasculature. Visualized osseous structures demonstrate no acute abnormality. CT/Abdomen/Pelvis without Cont IMPRESSION: 5 mm obstructive stone at the distal right ureter with associated mild hydroureteronephrosis. Moderately thickened urinary bladder wall which may reflect cystitis vs nondistention; consider correlation with urinalysis. Reading Location: [id number] CC: Dr. George Covarrubias MD; No Primary Care Physician Mid Level Game Designer: Signed Normal [facility] Bilirubin Test strip Ql (U)O rdered By: George Covarrubias on 06-10-2025 Bilirubin Ql (U) Negative Negative [facility] Emergency Department Summary on 06-10-2025 Emergency Department Summary [facility] Medical Records Department [address] [place] [id number] Emergency Department Summary 06/10/25 MR#: [id number] Acct: [id number] Name: SIDDHARTH KEYES Rep #: [id number] : 1975 50 From: George Covarrubias MD PCP: Care Physician,No Primary Status:REG ER Location: ED HPI History of Present Illness Chief Complaint: Flank Pain Informant: patient Pain Onset: Today Context: Gradual Onset Timing: Continuous Current Severity: Mild Maximum Severity: Mild Narrative Narrative: 50-year-old male history of kidney stones that has had about 9 before. Has never needed surgery. Has had a prior appendectomy. Patient states that he was seen here about a week and a half ago diagnosed with a 5 mm kidney stone. Was placed on Flomax, pain medication and antibiotics. He is finished those. Said this morning he got right flank and lower quadrant pain. Previously was feeling better. He thinks he has another stone. He denies any vomiting. No diarrhea. No fever. No dysuria. Prior similar symptoms: Yes Recent Illness/Hospitalization: No PFSH PFSH Medical History History of kidney stones Home Medications ???Medication ???Instructions ???Recorded ???Last Taken ???Type ibuprofen 200 mg tablet (Advil) 400 mg PO Q4H PRN fever or pain 06/02/25 History levofloxacin 750 mg tablet 750 mg PO DAILY 7 days #7 tabs Unknown Rx ondansetron 4 mg disintegrating 4 mg PO Q8H PRN PRN Nausea #10 tab s 06/02/25 Unknown Rx tablet oxycodone-acetaminophen 5 mg-325 1 tab PO Q6H PRN pain 3 days #12 0 06/02/25 Unknown Rx mg tablet (Percocet) tabs tamsulosin 0.4 mg capsule (Flomax) 0.4 mg PO DAILY 14 days #14 caps 06/02/25 Unknown Rx oxycodone-acetaminophen 7.5 mg-325 1 tab PO Q8H PRN pain 3 days #12 06/10/25 Unknown Rx mg tablet (Percocet) tabs Allergy/AdvReac Type Severity Reaction Status Date / Time bismuth subsalicylate (From Allergy HEAT RASH Verified 06/10/25 12:05 Pepto-Bismol) latex Allergy Rash Verified 06/10/25 12:05 Penicillins Allergy HEAT RASH Verified 06/10/25 12:05 Surgical History Hx of neck surgery Social History Smoking Status: Current every day smoker tobacco type: cigarettes ROS ROS ED ROS Narrative Right flank pain. Constitutional Constitutional ED: Denies chills or fever(s) Eyes Eyes: Denies blurry vision ENT ENT ED: Denies ear pain Cardiovascular Cardiovascular: Denies chest pain Respiratory/Chest Respiratory/Chest: Denies cough or dyspnea Gastrointestinal Gastrointestinal: Reports abdominal pain; Denies constipation, diarrhea, melena, nausea or vomiting Genitourinary Genitourinary ED: Denies dysuria or hematuria Musculoskeletal Musculoskeletal: Denies arthralgias or back pain Integumentary Denies abscess Neurologic Neurologic: Denies headache(s) Psychiatric Psychiatric: Denies anxiety Endocrine Endocrinology: Denies polydipsia Hematologic/Lymphatic Hematologic/Lymphatic: Denies easy bleeding, easy bruising or lymphadenopathy Allergic/Immunologic Allergic/Immunologic ED: Denies mouth swelling, tongue swelling or urticaria EXAM Physical Exam Narrative Exam Narrative: Well-appearing middle-aged male. Vital signs stable afebrile. No distress. H EENT exam pupils round react light. Moist mucous members. Neck nontender JVD. Lungs clear to auscultation bilateral. Heart regular rhythm no murmur. Chest wall ribs nontender. Abdomen soft, nontender nondistended, normal bowel sounds without peritoneal signs. Moving all 4 extremities. Back nontender. Neurologically he is awake alert. Answer questions following commands. Patient appears very comfortable. No distress. Const Vital Signs: 06/10/25 12:05 06/10/25 14:05 Temperature 98 F Temperature Source Temporal Pulse Rate 103 H 90 Respiratory Rate 14 17 Blood Pressure 113/87 H 115/77 Blood Pressure Mean 95 89 Pulse Ox 98 97 Oxygen Delivery Method Room Air Room Air Positive well nourished and well developed; Negative for cachectic, contractures or unkempt General Appearance ED: well developed and NAD; Negative for unkempt, cachectic, contractures or pallor Nutritional Appearance: Negative for cachectic HEENT Reports moist mucous membranes normocephalic and atraumatic Eyes PERRL and EOMs intact bilaterally Neck no lymphadenopathy, supple and no JVD Resp normal respiratory effort and clear to auscultation bilaterally Cardio regular rate, regular rhythm, S1 normal heart sound, S2 normal heart sound and no murmurs GI non-tender, non-distended and no masses Auscultation: normoactive bowel sounds Palpation: soft; Negative (more content not included)... Normal [facility] Ketones Test strip Ql (U)Ord ered By: George Covarrubias on 06-10-2025 Ketones Ql (U) Negative Negative [facility] Microscopic analysis of urin e for red blood cells (RBC)Ordered By: George Covarrubias on 06-10-2025 Microscopic analysis of urine for red blood cells (RBC) 0-5 SEEN /hpf 0-5 [facility] Mucus LM Ql (Urine sed)Order ed By: George Covarrubias on 06-10-2025 Mucus Ql (Urine sed) 0 SEEN /hpf [facility] Nitrite Test strip Ql (U)Ord ered By: George Covarrubias on 06-10-2025 Nitrite Ql (U) Negative Negative [facility] Protein Test strip Ql (U)Ord ered By: George Cvoarrubias on 06-10-2025 Protein Ql (U) 15 mg/dl High Negative [facility] Squamous epithelial cells de tection in urine sediment by light microscopyOrdered By: George Covarrubias on 06-10-2025 Epithelial cells.squamous LM Ql (Urine sed) 0 SEEN /hpf 0-5 [facility] Urinalysis, Completeon 06-10 RBC 0-5 SEEN Normal 0-5 [facility] Comment on above: Order Comment: CLEAN CATCH Performed By: #### L [id number] #### [facility] [address] [place], [place], [id number] BACTERIA 0 SEEN Normal None Seen [facility] Comment on above: Order Comment: CLEAN CATCH Performed By: #### L [id number] #### [facility] [address] [place], [place], [id number] EPI,SQUAMOUS 0 SEEN Normal 0-5 [facility] Comment on above: Order Comment: CLEAN CATCH Performed By: #### L [id number] #### [facility] [address] [place], [place], [id number] Mucus Ql (Urine sed) 0 SEEN Normal [facility] Comment on above: Order Comment: CLEAN CATCH Performed By: #### L [id number] #### [facility] [address] [place], [place], [id number] WBC 0 SEEN Normal 0-5 [facility] Comment on above: Order Comment: CLEAN CATCH Performed By: #### L [id number] #### [facility] [address] [place], [place], [id number] Urine clarityOrdered By: Alexei Covarrubias on 06-10-2025 Clarity (U) Clear Clear [facility] Urine color determinationOrd ered By: George Covarrubias on 06-10-2025 Color (U) Yellow Yellow [facility] Urine glucose detectionOrder ed By: George Covarrubias on 06-10-2025 Glucose Ql (U) Normal mg/dl Normal [facility] Urine leukocyte esterase det ection by dipstickOrdered By: George Covarrubias on 06-10-2025 Leukocyte esterase Test strip Ql (U) Negative Negative [facility] Urine pHOrdered By: George rand on 06-10-2025 pH (U) 6.5 [pH] 5.0 - 8.0 [facility] Urine sediment bacteria coun t by microscopy (number/high power field)Ordered By: George Covarrubias on 06-10-2025 Bacteria LM.HPF (Urine sed) [#/Area] 0 /[HPF] None Seen [facility] Urine specific gravity measu rementOrdered By: George Covarrubias on 06-10-2025 Specific gravity (U) [Rel density] 1.030 1.002-1.03 0 [facility] Urine urobilinogen measureme ntOrdered By: George Covarrubias on 06-10-2025 Urobilinogen Ql (U) Normal mg/dl Normal [facility] White blood cell countOrdere d By: George Covarrubias on 06-10-2025 White blood cell count 0 SEEN /hpf 0-5 [facility] Urine Cultureon 06-03-2025 [facility]RC Culture exhibits no growth. Normal [facility] Comment on above: Performed By: #### M [id number] #### [facility] [facility] [address] [place], [address] Abdomen/Pelvis without Conto n 06-02-2025 Abdomen/Pelvis without Cont [facility] Imaging Services [address] [place] [address] Abdomen/Pelvis without Cont MR#: [id number] Acct: [id number] Name: SIDDHARTH KEYES Rep #: [id number] : 1975 M 50 From: Alcides Hawley MD PCP: Care Physician,No Primary Status: REG ER Study: Abdomen/Pelvis without Cont Date of Exam: 05/13 11/05 Exam# [id number] Ordering Dr: Rodger Cruz DO PROCEDURE: ABDOMEN/PELVIS WITHOUT CONT 06/02/2025 REASON FOR EXAM: RIGHT FLANK PAIN, HISTORY OF UROLITHIASIS TECHNIQUE: Procedure Code: CTABDPEL Modality: CT Procedure: ABDOMEN/PELVIS WITHOUT CONT Noncontrast technique limits evaluation of the abdominal and pelvic viscera. Coronal and Sagittal reconstruction series were provided. One or more dose reduction techniques were used (e.g., Automated exposure control, adjustment of the mA and/or kV according to patient size, use of iterative reconstruction technique). RADIATION DOSE SUMMARY: DLP: 518.3 mGycm COMPARISON: August 10, 2024 FINDINGS: Lung bases: Clear Liver: Unremarkable Gallbladder: Unremarkable Spleen: Unremarkable Pancreas: Unremarkable Adrenals: Unremarkable Kidneys: There are multiple right renal stones with the largest in the upper pole measuring 0.4 cm. There is mild right hydronephrosis secondary to a 0.5 cm stone in the proximal right ureter, image 80/201. The left kidney shows multiple stones with the largest measuring 0.3 cm in the lower pole. There is no ureteral stone or hydronephrosis on the left. Bladder: Unremarkable Reproductive Organs: Unremarkable Bowel: Gas and stool is noted in the colon with a moderate stool load. The small-bowel loops are nondistended. Appendix: Within normal limits Lymph nodes: There is no pathologic adenopathy by size criteria. Vasculature: Atherosclerotic calcifications are noted. Peritoneum / Retroperitoneum: There is no free air or free fluid. Bones: There is no acute bony abnormality. CT/Abdomen/Pelvis without Cont IMPRESSION: Bilateral nephrolithiasis. There is mild right hydronephrosis secondary to a 0.5 cm stone in the proximal right ureter, image 80/201. Critical results were discussed with Dr. Harris by Dr. Hawley at the time of dictation. Reading Location: [place] CC: Dr. Rodger Cruz, DO; No Primary Care Physician Mid Level Game Designer: Signed Normal [facility] Absolute lymphocyte countOrd ered By: Rodger Cruz on 06-02-2025 Lymphocytes Auto (Unsp spec) [#/Vol] 2.12 10*3/uL 0.83-4.51 [facility] Absolute neutrophil countOrd ered By: Rodger Cruz on 06-02-2025 Neutrophils (Bld) [#/Vol] 7.3 10*3/uL 2.0-7.7 [facility] Anion gap in Serum or Plasma Ordered By: Rodgeralysia Cruz on 06-02-2025 Anion gap [Moles/Vol] 9 mmol/L 5-15 [facility] Automated lymphocyte count a s percentage of total leukocytesOrdered By: Rodger Cruz on 06-02-2025 Lymphocytes/100 WBC Auto (Unsp spec) 20.5 % 19-41 [facility] BUN/creatinine ratioOrdered By: Rodger Cruz on 06-02-2025 Urea nitrogen/Creatinine [Mass ratio] 17.0 mg/mg 10- [facility] Basic Metabolic Profile (BMP )on 06-02-2025 BUN/CRE 17.0 RATIO Normal - [facility] Comment on above: Performed By: #### L 500.2500, L100.0100 ####[facility] [address] [place], [place], [id number] Calcium [Mass/Vol] 9.2 mg/dL Normal 7.6-11.0 [facility] Comment on above: Performed By: #### L 500.2500, L100.0100 ####[facility] [address] [place], [address] Chloride [Moles/Vol] 105 mmol/L Normal 98-108 [facility] Comment on above: Performed By: #### L 500.2500, L100.0100 ####[facility] [address] [place], [address] CO2 [Moles/Vol] 25.9 mmol/L Normal 21.0-32.0 [facility] Comment on above: Performed By: #### L 500.2500, L100.0100 ####[facility] [address] [place], [address] Creatinine [Mass/Vol] 1.10 mg/dL Normal 0.70-1.20 [facility] Comment on above: Performed By: #### L 500.2500, L100.0100 ####[facility] [address] [place], [address] ECRCL 78.59 ml/min Normal 50-250 [facility] Comment on above: Performed By: #### L 500.2500, L100.0100 ####[facility] [address] [place], [address] GAP 9 Normal 5-15 [facility] Comment on above: Performed By: #### L 500.2500, L100.0100 ####[facility] [address] [place], [address] GFR/1.73 sq M.predicted among non-blacks MDRD (S/P/Bld) [Vol rate/Area] 82 mL/min/{1.73_m2} Normal >60 [facility] Comment on above: Result Comment: mL/m in/1.73m2 CKD-EPI Creatinine Equation (2020) Performed By: #### L 500.2500, L100.0100 ####[facility] [address] [place], [address] Glucose [Mass/Vol] 102 mg/dL High 70-99 [facility] Comment on above: Performed By: #### L 500.2500, L100.0100 ####[facility] [address] [place], [address] Potassium [Moles/Vol] 4.5 mmol/L Normal 3.3-5.1 [facility] Comment on above: Performed By: #### L 500.2500, L100.0100 ####[facility] [address] [place], [address] Sodium [Moles/Vol] 140 mmol/L Normal 133-145 [facility] Comment on above: Performed By: #### L 500.2500, L100.0100 ####[facility] [address] [place], [address] Urea nitrogen [Mass/Vol] 19 mg/dL Normal 4-19 [facility] Comment on above: Performed By: #### L 500.2500, L100.0100 ####[facility] [address] [place], [address] Basophil percentageOrdered B y: Rodger Cruz on 06-02-2025 Basophils/100 WBC (Bld) 0.3 % 0-1 [facility] Bilirubin Test strip Ql (U)O rdered By: Rodger Cruz on 06-02-2025 Bilirubin Ql (U) Negative Negative [facility] CBC W/Diff, Automatedon 05-13 Absolute Lymph 2.12 X10 3/uL Normal 0.83-4.51 [facility] Comment on above: Performed By: #### L 500.2500, L100.0100 #### [facility] [address] [place], [address] Absolute Neut 7.3 X10 3/uL Normal 2.0-7.7 [facility] Comment on above: Performed By: #### L 500.2500, L100.0100 #### [facility] [address] [place], [address] Basophils/100 WBC (Bld) 0.3 % Normal 0-1 [facility] Comment on above: Performed By: #### L 500.2500, L100.0100 #### [facility] [address] [place], [address] Eosinophils/100 WBC (Bld) 1.3 % Normal 0-5 [facility] Comment on above: Performed By: #### L 500.2500, L100.0100 #### [facility] [address] [place], [address] Erythrocyte distribution width (RBC) [Ratio] 13.1 % Normal 11.6-14.6 [facility] Comment on above: Performed By: #### L 500.2500, L100.0100 #### [facility] [address] [place], [address] Hematocrit (Bld) [Volume fraction] 41.0 % Normal 40-54 [facility] Comment on above: Performed By: #### L 500.2500, L100.0100 #### [facility] [address] [place], [address] Hemoglobin (Bld) [Mass/Vol] 14.2 g/dL Normal 13.0-16.5 [facility] Comment on above: Performed By: #### L 500.2500, L100.0100 #### [facility] [address] [place], [address] IG% 0.200 Normal 0.0-0.9 [facility] Comment on above: Result Comment: IG% - Immature Granulocytes (promyelocytes, myelocytes and metamyelocytes) > 1% indicates that a LEFT SHIFT is Present. Performed By: #### L 500.2500, L100.0100 #### [facility] [address] [place], [address] Lymphocytes/100 WBC (Bld) 20.5 % Normal 19-41 [facility] Comment on above: Performed By: #### L 500.2500, L100.0100 #### [facility] [address] [place], [address] MCH (RBC) [Entitic mass] 32.6 pg High 27.0-32.0 [facility] Comment on above: Performed By: #### L 500.2500, L100.0100 #### [facility] [address] [place], [address] MCHC (RBC) [Mass/Vol] 34.6 g/dL Normal 32-36 [facility] Comment on above: Performed By: #### L 500.2500, L100.0100 #### [facility] [address] [place], [address] MCV (RBC) [Entitic vol] 94.0 fL Normal 80-94 [facility] Comment on above: Performed By: #### L 500.2500, L100.0100 #### [facility] [address] [place], [address] Monocytes/100 WBC (Bld) 7.1 % Normal 0-10 [facility] Comment on above: Performed By: #### L 500.2500, L100.0100 #### [facility] [address] [place], [address] Neutrophils/100 WBC (Bld) 70.6 % High 47-70 [facility] Comment on above: Performed By: #### L 500.2500, L100.0100 #### [facility] [address] [place], [address] Nucleated RBC (Bld) [#/Vol] 0 10*3/uL Normal 0-5 [facility] Comment on above: Performed By: #### L 500.2500, L100.0100 #### [facility] [address] [place], [address] Platelet mean volume (Bld) [Entitic vol] 8.9 fL Normal 6.2-12.0 [facility] Comment on above: Performed By: #### L 500.2500, L100.0100 #### [facility] [address] [place], [address] Platelets (Bld) [#/Vol] 271 10*3/uL Normal 150-450 [facility] Comment on above: Performed By: #### L 500.2500, L100.0100 #### [facility] [address] [place], [address] RBC (Bld) [#/Vol] 4.36 10*6/uL Low 4.6-6.2 [facility] Comment on above: Performed By: #### L 500.2500, L100.0100 #### [facility] [address] [place], [address] RDW SD 45.1 fl High 35.1-43.9 [facility] Comment on above: Performed By: #### L 500.2500, L100.0100 #### [facility] [address] [place], [address] WBC (Bld) [#/Vol] 10.3 10*3/uL Normal 4.4-11.0 [facility] Comment on above: Performed By: #### L 500.2500, L100.0100 #### [facility] [address] [place], [address] Carbon dioxide, total [Moles /volume] in Central venous bloodOrdered By: Rodger Cruz on 06-02-2025 CO2 [Moles/Vol] 25.9 mmol/L 21.0-32.0 [facility] Chloride assayOrdered By: Sarath Cruz on 06-02-2025 Chloride [Moles/Vol] 105 mmol/L 98-108 [facility] Emergency Department Summary on 06-02-2025 Emergency Department Summary [facility] Medical Records Department [address] [place] [address] Emergency Department Summary 06/02/25 MR#: [id number] Acct: [id number] Name: SIDDHARTH KEYES Rep #: [id number] : 1975 50 From: Rodger Cruz DO PCP: Care Physician,No Primary Status:DEP ER Location: ED HPI History of Present Illness Chief Complaint: Flank Pain Narrative Narrative: Chief complaint and HPI: 50-year-old male with past medical history of urolithiasis presents for evaluation of right flank pain. Patient states he has passed multiple kidney stones throughout his life. He has not followed with a urologist. Onset of right flank pain yesterday evening. Intermittent. Feels like his previous urolithiasis. Nausea only with pain. He denies any fever, chills, shortness of breath, chest pain, diarrhea, constipation, dysuria. Denies any penile or testicular pain swelling, discharge. Review of systems: See HPI Medications: As listed on the chart Allergies: As listed on the chart PFSH: Per chart Vital signs: As listed on the chart. Reviewed. Physical exam: Gen: A O x3, NAD Head: Normocephalic, atraumatic Eyes: No sclera icterus, conjunctiva clear ENT: Moist mucous membranes CV: RRR, no murmurs Resp: Lungs CTA BL, no w/r/c GI: Abd soft, non-distended, nontender, no r/r/g : No CVA tenderness Musc: Full ROM, no deformity Skin: Warm, dry Neuro: Alert, oriented, grossly intact, sensation intact Psych: Cooperative, appropriate mood and affect [facility] Medical History History of kidney stones Home Medications ???Medication ???Instructions ???Recorded ???Last Taken ???Type ibuprofen 200 mg tablet (Advil) 400 mg PO Q4H PRN fever or pain 06/02/25 History levofloxacin 750 mg tablet 750 mg PO DAILY 7 days #7 tabs Unknown Rx ondansetron 4 mg disintegrating 4 mg PO Q8H PRN PRN Nausea #10 tab s 06/02/25 Unknown Rx tablet oxycodone-acetaminophen 5 mg-325 1 tab PO Q6H PRN pain 3 days #12 0 06/02/25 Unknown Rx mg tablet (Percocet) tabs tamsulosin 0.4 mg capsule (Flomax) 0.4 mg PO DAILY 14 days #14 caps 06/02/25 Unknown Rx Allergy/AdvReac Type Severity Reaction Status Date / Time bismuth subsalicylate (From Allergy HEAT RASH Verified 06/02/25 07:31 Pepto-Bismol) latex Allergy Rash Verified 06/02/25 07:31 Penicillins Allergy HEAT RASH Verified 06/02/25 07:31 Surgical History Hx of neck surgery Social History Smoking Status: Current every day smoker tobacco type: cigarettes EXAM Physical Exam Const Vital Signs: 06/02/25 07:30 06/02/25 10:00 Temperature 96.9 F L Temperature Source Temporal Pulse Rate 78 89 Respiratory Rate 19 H 18 Blood Pressure 139/83 H 134/78 H Blood Pressure Mean 101 96 Pulse Ox 100 98 Oxygen Delivery Method Room Air Room Air MDM MDM MDM Narrative Medical decision making narrative: 50-year-old male with past medical history of urolithiasis presents for evaluation of right flank pain. Patient states he has passed multiple kidney stones throughout his life. He has not followed with a urologist. Onset of right flank pain yesterday evening. Intermittent. Feels like his previous urolithiasis. Differential diagnosis includes but is not limited to urolithiasis, nephrolithiasis, UTI, electrolyte abnormality, gastroenteritis. NS bolus, Zofran, Toradol ordered for symptoms. Laboratory workup ordered including CT abdomen pelvis without contrast. CBC without leukocytosis or anemia. BMP unremarkable without NILAM. UA positive for UTI. Urine culture sent. CT abdomen pelvis shows bilateral nephrolithiasis. Mild right hydronephrosis secondary to 0.5 cm stone in the proximal right ureter. I personally spoke with the radiologist about the read as he contacted me. On reevaluation, patient still having pain, morphine ordered. Pain improved with morphine. Patient is comfortable discharging home however given that this is a proximal stone that is 5 mm with UTI, will consult urology. Patient had a prolonged stay in our emergency department secondary to awaiting callback from urology. I do not have urology available in our hospital therefore I had to consult out to [facility]. Patient was discussed with the urologist, hiwot to follow-up outpatient. Agrees with antibiotics, pain medicine, Zofran, Flomax. Patient will be placed on a week of Levaquin. First dose given here. Return precautions explained. Follow-up with urology. He confirmed understand the plan. Patient able to discharge home. Patient did leave the emergency department prior to his discharge being written. I did personally contact him over the tele (more content not included)... Normal [facility] Eosinophil percentageOrdered By: Rodger Cruz on 06-02-2025 Eosinophils/100 WBC (Bld) 1.3 % 0-5 [facility] Erythrocyte distribution wid th ratioOrdered By: Rodgeralysia Cruz on 06-02-2025 Erythrocyte distribution width (RBC) [Ratio] 13.1 % 11.6-14.6 [facility] Erythrocyte distribution wid th standard deviationOrdered By: Rodger Jensen on 06-02-2025 Erythrocyte distribution width (RBC) [Ratio] 45.1 fl High 35.1-43.9 [facility] Glomerular filtration rate ( GFR) estimation/1.73 sq m using serum, plasma, or whole bOrdered By: Rodger Cruz on 06-02-2025 GFR/1.73 sq M.predicted among non-blacks MDRD (S/P/Bld) [Vol rate/Area] 82 mL/min/{1.73_m2} >60 [facility] Comment on above: mL/min/1.73m2 CKD-EP I Creatinine Equation (2020) Hematocrit Auto (Bld) [Volum e fraction]Ordered By: Rodger Cruz on 06-02-2025 Hematocrit (Bld) [Volume fraction] 41.0 % 40-54 [facility] Hemoglobin measurementOrdere d By: Rodger Cruz on 06-02-2025 Hemoglobin (Bld) [Mass/Vol] 14.2 g/dL 13.0-16.5 [facility] Immature granulocytes/100 WB C Auto (Bld)Ordered By: Rodger Cruz on 06-02-2025 Immature granulocytes/100 WBC (Bld) 0.200 % 0.0-0.9 [facility] Comment on above: IG% - Immature Granu locytes (promyelocytes, myelocytes and metamyelocytes) > 1% indicates that a LEFT SHIFT is Present. Ketones Test strip Ql (U)Ord ered By: Rodger Cruz on 06-02-2025 Ketones Ql (U) Negative Negative [facility] MCV (mean corpuscular volume ) determinationOrdered By: Rodger Cruz on 06-02-2025 MCV (RBC) [Entitic vol] 94.0 fL 80-94 [facility] Mean corpuscular hemoglobin (MCH) determinationOrdered By: Rodger Cruz on 06-02-2025 MCH (RBC) [Entitic mass] 32.6 pg High 27.0-32.0 [facility] Mean corpuscular hemoglobin concentration (MCHC) determinationOrdered By: Rodger Cruz on 06-02-2025 MCHC (RBC) [Mass/Vol] 34.6 g/dL 32-36 [facility] Mean platelet volume determi nationOrdered By: Rodger Cruz on 06-02-2025 Platelet mean volume (Bld) [Entitic vol] 8.9 fL 6.2-12.0 [facility] Microscopic analysis of urin e for red blood cells (RBC)Ordered By: Rodger Cruz on 06-02-2025 Microscopic analysis of urine for red blood cells (RBC) 10-25 SEEN /hpf 0-5 [facility] Monocyte percentageOrdered B y: Rodger Cruz on 06-02-2025 Monocytes/100 WBC (Bld) 7.1 % 0-10 [facility] Mucus LM Ql (Urine sed)Order ed By: Rodger Cruz on 06-02-2025 Mucus Ql (Urine sed) 2+ /hpf [facility] Neutrophil percentageOrdered By: Rodger Cruz on 06-02-2025 Neutrophils/100 WBC (Bld) 70.6 % High 47-70 [facility] Nitrite Test strip Ql (U)Ord ered By: Rodger Cruz on 06-02-2025 Nitrite Ql (U) Negative Negative [facility] Nucleated red blood cell per centageOrdered By: Rodger Cruz on 06-02-2025 Nucleated RBC/100 WBC (Bld) [Ratio] 0 % 0-5 [facility] Platelet countOrdered By: Sarath Cruz on 06-02-2025 Platelets (Bld) [#/Vol] 271 10*3/uL 150-450 [facility] Potassium measurement (mass/ volume)Ordered By: Rodger Cruz on 06-02-2025 Potassium (Unsp spec) [Mass/Vol] 4.5 mmol/L 3.3-5.1 [facility] Protein Test strip Ql (U)Ord ered By: Rodger Cruz on 06-02-2025 Protein Ql (U) 30 mg/dl High Negative [facility] RBC Auto (Bld) [#/Vol]Ordere d By: Rodger Cruz on 06-02-2025 RBC (Bld) [#/Vol] 4.36 10*6/uL Low 4.6-6.2 [facility] Serum creatinine measurement (mass/volume)Ordered By: Rodger Cruz on 06-02-2025 Creatinine [Mass/Vol] 1.10 mg/dL 0.70-1.20 [facility] Serum glucose measurement (m ass/volume)Ordered By: Rodger Cruz on 06-02-2025 Glucose [Mass/Vol] 102 mg/dL High 70-99 [facility] Serum or plasma calcium yuly urement (mass/volume)Ordered By: Rodger Jensen on 06-02-2025 Calcium [Mass/Vol] 9.2 mg/dL 7.6-11.0 [facility] Serum or plasma urea nitroge n measurement (mass/volume)Ordered By: Rodger Cruz on 06-02-2025 Urea nitrogen [Mass/Vol] 19 mg/dL 4-19 [facility] Sodium levelOrdered By: Charli Cruz on 06-02-2025 Sodium [Moles/Vol] 140 mmol/L 133-145 [facility] Squamous epithelial cells de tection in urine sediment by light microscopyOrdered By: Rodger Cruz on 06-02-2025 Epithelial cells.squamous LM Ql (Urine sed) 0-5 SEEN /hpf 0-5 [facility] Urinalysis, Completeon 06-02 BACTERIA 2+ /hpf Normal None Seen [facility] Comment on above: Order Comment: KVNG CTOR TO SPECIFY Performed By: #### L 400.0001 ####[facility] [address] [facility] [address] EPI,SQUAMOUS 0-5 SEEN Normal 0-5 [facility] Comment on above: Order Comment: KVNG CTOR TO SPECIFY Performed By: #### L 400.0001 ####[facility] [address] [facility] [id number] Mucus Ql (Urine sed) 2+ /hpf Normal [facility] Comment on above: Order Comment: KVNG CTOR TO SPECIFY Performed By: #### L 400.0001 ####[facility] [address] [facility] [address] RBC 10-25 SEEN Normal 0-5 [facility] Comment on above: Order Comment: KVNG CTOR TO SPECIFY Performed By: #### L 400.0001 ####[facility] [address] [facility] [id number] WBC 5-10 SEEN Normal 0-5 [facility] Comment on above: Order Comment: KVNG CTOR TO SPECIFY Performed By: #### L 400.0001 ####[facility] [address] [place] [id number] Urine clarityOrdered By: Mario Cruz on 06-02-2025 Clarity (U) Sl. Cloudy Clear [facility] Urine color determinationOrd ered By: Rodger Cruz on 06-02-2025 Color (U) Yellow Yellow [facility] Urine cultureOrdered By: Mario Cruz on 06-02-2025 Bacteria identified Cx Nom (U) Culture exhibits no growth. [facility] Urine glucose detectionOrder ed By: Rodger Cruz on 06-02-2025 Glucose Ql (U) Normal mg/dl Normal [facility] Urine leukocyte esterase det ection by dipstickOrdered By: Rodger Cruz on 06-02-2025 Leukocyte esterase Test strip Ql (U) 100 /ul High Negative [facility] Urine pHOrdered By: Rodger Lopes on 06-02-2025 pH (U) 6.5 [pH] 5.0 - 8.0 [facility] Urine sediment bacteria coun t by microscopy (number/high power field)Ordered By: Rodger Cruz on 06-02-2025 Bacteria LM.HPF (Urine sed) [#/Area] 2 /[HPF] None Seen [facility] Urine specific gravity measu rementOrdered By: Rodger Cruz on 06-02-2025 Specific gravity (U) [Rel density] 1.015 1.002-1.03 0 [facility] Urine urobilinogen measureme ntOrdered By: Rodger Cruz on 06-02-2025 Urobilinogen Ql (U) Normal mg/dl Normal [facility] White blood cell (WBC) count Ordered By: Rodger Cruz on 06-02-2025 WBC (Bld) [#/Vol] 10.3 10*3/uL 4.4-11.0 [facility] White blood cell countOrdere d By: Rodger Cruz on 06-02-2025 White blood cell count 5-10 SEEN /hpf 0-5 [facility] Abdomen/Pelvis without Conto n 08-10-2024 Abdomen/Pelvis without Cont [facility] Imaging Services [address] [address] Abdomen/Pelvis without Cont MR#: [id number] Acct: [id number] Name: SIDDHARTH KEYES Rep #: [id number] : 1975 M 49 From: Thelma Bell PCP: Care Physician,No Primary Status: REG ER Study: Abdomen/Pelvis without Cont Date of Exam: 07/14 Exam# [id number] Ordering Dr: Seferino Boateng DO [id number] EXAM: CT Abdomen And Pelvis W/O Contrast Injection HISTORY: Kidney Stone TECHNIQUE: Routine protocol CT abdomen and pelvis. IV Contrast: None.. Oral contrast: None. RADIATION DOSAGE (If Supplied By Facility): CTDIvol = ( 8.40 ) mGy, DLP = ( 440.60 ) mGycm Individualized dose optimization techniques were used for this CT. COMPARISON: CT abdomen pelvis . LIMITATIONS: None. FINDINGS: LOWER CHEST: Included lung bases are clear. LIVER: Grossly unremarkable. GALLBLADDER AND BILIARY TREE: Grossly unremarkable. PANCREAS: Grossly unremarkable. SPLEEN: Grossly unremarkable. ADRENAL GLANDS: Grossly unremarkable. KIDNEYS AND URETERS: There is a 3 mm calculus in the distal right ureter at the ureterovesical junction. Right ureter is dilated with moderate right hydronephrosis. Several small calculi in both kidneys. No hydronephrosis on the left. PERITONEUM: No free air. No free fluid. BOWEL: No bowel obstruction. APPENDIX: Not identified. VESSELS: Abdominal aorta is normal caliber. REPRODUCTIVE ORGANS: Grossly unremarkable URINARY BLADDER: Grossly unremarkable. ABDOMINAL WALL: Unremarkable. BONES: No acute abnormalities. Degenerative changes lumbar spine. CT/Abdomen/Pelvis without Cont IMPRESSION: Distal right ureteral calculus with moderate right hydroureteronephrosis. Bilateral nephrolithiasis. Electronically Signed: Thelma Tong MD at 1:35 EST , CC: Dr. Seferino Boateng, DO; No Primary Care Physician Mid Level Game Designer: Signed Normal [facility] Basic Metabolic Profile (BMP )on 08-10-2024 BUN/CRE 12.1 RATIO Normal 10-20 [facility] Comment on above: Performed By: #### L 500.2500, L100.0100 #### [facility] [address] [place], [address] CA,Total 9.7 mg/dL Normal 8.5-10.1 [facility] Comment on above: Performed By: #### L 500.2500, L100.0100 #### [facility] [address] [place], [address] Chloride [Moles/Vol] 105 mmol/L Normal 98-107 [facility] Comment on above: Performed By: #### L 500.2500, L100.0100 #### [facility] [address] [place], [address] CO2 [Moles/Vol] 28.0 mmol/L Normal 21.0-32.0 [facility] Comment on above: Performed By: #### L 500.2500, L100.0100 #### [facility] [address] [place], [address] Creatinine [Mass/Vol] 1.16 mg/dL Normal 0.70-1.30 [facility] Comment on above: Result Comment: The validity of the calculated GFR GFRAA in patients over 70 years has not been determined. Clinical correlation is essential. Performed By: #### L 500.2500, L100.0100 #### [facility] [address] [place], [address] ECRCL 83.58 ml/min Normal [facility] Comment on above: Performed By: #### L 500.2500, L100.0100 #### [facility] [address] [place], [address] EST GFR - AA 86 mL/min Normal >60 [facility] Comment on above: Result Comment: Afri can Pakistani GFR Calc Performed By: #### L 500.2500, L100.0100 #### [facility] [address] [place], [address] GAP 7 Normal 5-15 [facility] Comment on above: Performed By: #### L 500.2500, L100.0100 #### [facility] [address] [place], [address] GFR/1.73 sq M.predicted among non-blacks MDRD (S/P/Bld) [Vol rate/Area] 71 mL/min/{1.73_m2} Normal >60 [facility] Comment on above: Result Comment: Non- GFR Calc Performed By: #### L 500.2500, L100.0100 #### [facility] [address] [place], [address] Glucose [Mass/Vol] 112 mg/dL High 74-106 [facility] Comment on above: Result Comment: Fast ing Glucose result from 100 to 125 mg/dL suggests IMPAIRED HOMEOSTASIS per A.D.A. criteria. Performed By: #### L 500.2500, L100.0100 #### [facility] [address] [place], [address] Potassium [Moles/Vol] 3.4 mmol/L Low 3.5-5.1 [facility] Comment on above: Performed By: #### L 500.2500, L100.0100 #### [facility] [address] [place], [address] Sodium [Moles/Vol] 140 mmol/L Normal 136-145 [facility] Comment on above: Performed By: #### L 500.2500, L100.0100 #### [facility] [address] [place], [address] Urea nitrogen [Mass/Vol] 14 mg/dL Normal 7-18 [facility] Comment on above: Performed By: #### L 500.2500, L100.0100 #### [facility] [address] [place], [address] CBC W/Diff, Automatedon 11-3 0-2024 Absolute Lymph 2.91 X10 3/uL Normal 0.83-4.51 [facility] Comment on above: Performed By: #### L 500.2500, L100.0100 #### [facility] [address] [place], [address] Absolute Neut 5.7 X10 3/uL Normal 2.0-7.7 [facility] Comment on above: Performed By: #### L 500.2500, L100.0100 #### [facility] [address] [place], [address] Basophils/100 WBC (Bld) 0.4 % Normal 0-1 [facility] Comment on above: Performed By: #### L 500.2500, L100.0100 #### [facility] [address] [place], [address] Eosinophils/100 WBC (Bld) 2.4 % Normal 0-5 [facility] Comment on above: Performed By: #### L 500.2500, L100.0100 #### [facility] [address] [place], [address] Erythrocyte distribution width (RBC) [Ratio] 13.3 % Normal 11.6-14.6 [facility] Comment on above: Performed By: #### L 500.2500, L100.0100 #### [facility] [address] [place], [address] Hematocrit (Bld) [Volume fraction] 42.6 % Normal 40-54 [facility] Comment on above: Performed By: #### L 500.2500, L100.0100 #### [facility] [address] [place], [address] Hemoglobin (Bld) [Mass/Vol] 14.7 g/dL Normal 13.0-16.5 [facility] Comment on above: Performed By: #### L 500.2500, L100.0100 #### [facility] [address] [place], [address] IG% 0.300 Normal 0.0-0.9 [facility] Comment on above: Result Comment: IG% - Immature Granulocytes (promyelocytes, myelocytes and metamyelocytes) > 1% indicates that a LEFT SHIFT is Present. Performed By: #### L 500.2500, L100.0100 #### [facility] [address] [place], [address] Lymphocytes/100 WBC (Bld) 29.5 % Normal 19-41 [facility] Comment on above: Performed By: #### L 500.2500, L100.0100 #### [facility] [address] [place], [address] MCH (RBC) [Entitic mass] 31.7 pg Normal 27.0-32.0 [facility] Comment on above: Performed By: #### L 500.2500, L100.0100 #### [facility] [address] [place], [address] MCHC (RBC) [Mass/Vol] 34.5 g/dL Normal 32-36 [facility] Comment on above: Performed By: #### L 500.2500, L100.0100 #### [facility] [address] [place], [address] MCV (RBC) [Entitic vol] 91.8 fL Normal 80-94 [facility] Comment on above: Performed By: #### L 500.2500, L100.0100 #### [facility] [address] [place], [address] Monocytes/100 WBC (Bld) 9.8 % Normal 0-10 [facility] Comment on above: Performed By: #### L 500.2500, L100.0100 #### [facility] [address] [place], [address] Neutrophils/100 WBC (Bld) 57.6 % Normal 47-70 [facility] Comment on above: Performed By: #### L 500.2500, L100.0100 #### [facility] [address] [place], [address] Nucleated RBC (Bld) [#/Vol] 0 10*3/uL Normal 0-5 [facility] Comment on above: Performed By: #### L 500.2500, L100.0100 #### [facility] [address] [place], [address] Platelet mean volume (Bld) [Entitic vol] 9.3 fL Normal 6.2-12.0 [facility] Comment on above: Performed By: #### L 500.2500, L100.0100 #### [facility] [address] [place], [address] Platelets (Bld) [#/Vol] 351 10*3/uL Normal 150-450 [facility] Comment on above: Performed By: #### L 500.2500, L100.0100 #### [facility] [address] [place], [address] RBC (Bld) [#/Vol] 4.64 10*6/uL Normal 4.6-6.2 [facility] Comment on above: Performed By: #### L 500.2500, L100.0100 #### [facility] [address] [place], [address] RDW SD 45.1 fl High 35.1-43.9 [facility] Comment on above: Performed By: #### L 500.2500, L100.0100 #### [facility] [address] [place], [address] WBC (Bld) [#/Vol] 9.9 10*3/uL Normal 4.4-11.0 [facility] Comment on above: Performed By: #### L 500.2500, L100.0100 #### [facility] [address] [place], [address] Emergency Department Summary on 08-10-2024 Emergency Department Summary [facility] Medical Records Department [address] [place] [address] Emergency Department Summary 08/10/24 MR#: [id number] Acct: [id number] Name: SIDDHARTH KEYES Arabella Rep #: [id number] : 1975 49 From: Seferino Boateng DO PCP: Care Physician,No Primary Status:REG ER Location: ED HPI History of Present Illness Chief Complaint: Flank Pain PFSH PFSH Medical History History of kidney stones Home Medications ???Medication ???Instructions ???Recorded ???Last Taken ???Type ondansetron 4 mg disintegrating 4 mg PO Q8H PRN PRN Nausea #10 tabs 08/10/24 Unknown Rx tablet oxycodone 5 mg capsule 5 mg PO Q6H PRN pain 3 days #12 08/10/24 Unknown Rx caps sertraline 50 mg tablet 50 mg PO DAILY 08/10/24 Unknown History Allergy/AdvReac Type Severity Reaction Status Date / Time bismuth subsalicylate (From Allergy HEAT RASH Verified 08/10/24 00:40 Pepto-Bismol) latex Allergy Rash Verified 08/10/24 00:40 Penicillins Allergy HEAT RASH Verified 08/10/24 00:40 Surgical History Hx of neck surgery Social History Smoking Status: Current every day smoker tobacco type: cigarettes EXAM Physical Exam Const Vital Signs: 08/10/24 00:36 Temperature 96.4 F L Temperature Source Temporal Pulse Rate 91 Respiratory Rate 18 Blood Pressure 167/104 H Blood Pressure Mean 125 Pulse Ox 99 Oxygen Delivery Method Room Air [facility] MDM Narrative Medical decision making narrative: HISTORY OF PRESENT ILLNESS: 49-year-old male presents with concern for flank pain. Notes history of kidney stones. States this began approximately 2 hours ago. Feels like prior kidney stone. Does note right-sided flank pain radiates to the groin. Denies falls or trauma. Denies personal family history of connective tissue disease or aortic aneurysms. Denies numbness weakness or loss of sensation. No chest pain or shortness of breath noted. REVIEW OF SYSTEMS: Pertinent positives: Flank pain, hematuria Pertinent negatives: Vomiting, fever, syncope, chest pain, shortness of breath PHYSICAL EXAM: Nursing triage notes reviewed, Vital signs reviewed Constitutional: please see mdm Lungs: Clear to auscultation, No wheezing or rales. No increased work of breathing, no conversational dyspnea, no accessory muscle use, no nasal flaring. No respiratory distress noted Heart: Regular rate and rhythm, No murmurs, No rubs and No gallops, 2+ distal pulses (radial, femoral, posterior tibial) in all extremities Abdomen: Soft, there is no tenderness, no rigidity, rebound or guarding, no obvious peritoneal signs, no palpable pulsatile abdominal masses, no auscultated abdominal bruit : Right CVAT noted Extremities: No edema Neuro: Alert, oriented x 3, at baseline, sensation all 4 extremities, moves all 4 extremities, no localizing signs Skin: No rash or lesions noted MEDICAL DECISION MAKING: Chief Complaint: Flank pain External records reviewed: Reviewed prior imaging studies: Reviewed CT scan of the abdomen pelvis from September 2022 return 4.3 mm calculus left UVJ Factors affecting care: Nephrolithiasis Social determinants of health: Aggressive behavior depression, History obtained from others: none Consults: none [facility] Narrative: Patient was initially I considered the following differential diagnosis: Nephrolithiasis, musculoskeletal injury, UTI, pyelonephritis, AAA I obtained a broad lab and imaging workup to further elucidate the etiology of the patient's complaints. I initially treat the patient with 4 mg of IV Zofran, 15 mg of IV Toradol and 4 mg of IV morphine. I withheld fluids for now given ongoing fluid shortage. ALL IMAGES (IF OBTAINED) HAVE BEEN PERSONALLY REVIEWED AND INTERPRETED BY MYSELF. CBC without leukocytosis, severe anemia, no thrombocytopenia. BMP with mild hypokalemia, no other significant electrolyte abnormalities, no signs of metabolic acidosis or endorgan hypoperfusion within normal bicarb and anion gap. CT scan of the abdomen pelvis read and reviewed personally by myself showed evidence of small nephrolithiasis UVJ on the right. Radiologist agrees my interpretation. UA ordered awaiting results Prior to UA being resulted patient eloped from the emergency department. The patient and/or family, caregivers express understanding. The patient and/or family, caregivers agrees with the plan. Shared decision making: I will have a discussion with the patient and or visitors regarding risk/benefits of further testing or admission. They will be made aware of of the risk/benefits inherent in this decision they will be given the opportunit (more content not included)... Normal [facility] Urinalysis, Completeon 08-10 BACTERIA 2+ /hpf Normal None Seen [facility] Comment on above: Order Comment: COLOR OF URINE MAY AFFECT DIPSTICK RESULTS.CLEAN CATCH Performed By: #### L 400.0001 ####[facility] [address] [place], [address] EPI,TRANSITION 0-5 SEEN Normal 0-5 [facility] Comment on above: Order Comment: COLOR OF URINE MAY AFFECT DIPSTICK RESULTS.CLEAN CATCH Performed By: #### L 400.0001 ####[facility] [address] [place], [address] RBC 50-100 SEEN Normal 0-5 [facility] Comment on above: Order Comment: COLOR OF URINE MAY AFFECT DIPSTICK RESULTS.CLEAN CATCH Performed By: #### L 400.0001 ####[facility] [address] [place], [address] WBC 0-5 SEEN Normal 0-5 [facility] Comment on above: Order Comment: COLOR OF URINE MAY AFFECT DIPSTICK RESULTS.CLEAN CATCH Performed By: #### L 400.0001 ####[facility] [address] [place], [address] EPI,SQUAMOUS 0 SEEN Normal 0-5 [facility] Comment on above: Order Comment: COLOR OF URINE MAY AFFECT DIPSTICK RESULTS.CLEAN CATCH Performed By: #### L 400.0001 ####[facility] [address] [place], [address] Mucus Ql (Urine sed) 0 SEEN Normal [facility] Comment on above: Order Comment: COLOR OF URINE MAY AFFECT DIPSTICK RESULTS.CLEAN CATCH Performed By: #### L 400.0001 ####[facility] [address] [place], [address] CNPNon 04-12-2024 CNPN Telephone (MARYCRUZ) -- SIDDHARTH KEYES ([id number]) 1975 M Date Time Provider Department 04/12/24 DEBBY BRAUN [facility] During your visit today, we recorded the following information about you: Debby Braun APRN.CNP 04/12/2024 11:43 AM Signed Please call pt and advise him that he needs to est care with Dr. Cullen or Dr. Tan. Please schedule this. Can keep appt with me as well Zee Kwan 04/12/2024 1:20 PM Signed 1st attempt sent [employer] message, I did schedule him for Dr. Cullen's soonest available establishing care visit since he is booked until July. Nidhi Del Cid 04/15/2024 8:05 AM Signed Patient read [employer] message Allergies As of Date: 04/12/2024 Noted Allergy Reaction PENICILLINS 05/22/2014 2 - Rash LATEX 09/09/2014 2 - Rash Comments: Rash on hands with latex gloves PEPTO-BISMOL (BISMUTH SUBSALICYLA*05/25/2007 2 - Rash WOOL 05/25/2007 2 - Rash Date Reviewed: 03/22/2024 Reviewed by: Debby Braun APRN.SISTER SUPERIOR - Fully Assessed Reason for Visit: Appointment [186] Prescriptions as of 04/15/2024 - sertraline (ZOLOFT) 25 mg tablet Take 1 tablet by mouth once daily. 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] 05/25/2007 09/03/2014 Other specified drug dependence, in remission (*05/25/2007 09/03/2014 ALLERGIC RHINITIS NOS [J30.9] 05/25/2007 ESOPHAGEAL REFLUX [K21.9] 05/25/2007 SMELL AND TASTE DISTURB [R43.9] 05/25/2007 TOBACCO USE DISORDER [F17.200] 05/25/2007 Lumbar spondylosis [M47.816] 05/15/2014 DDD (degenerative disc disease), lumbar [M51.36]05/15/2014 Cervicalgia [M54.2] 05/15/2014 Cervical radiculopathy [M54.12] 05/15/2014 Cervical disc displacement [M50.20] 05/15/2014 Thoracic or lumbosacral neuritis or radiculitis*09/18/2014 Lumbago [M54.50] 09/18/2014 Degeneration of lumbar or lumbosacral intervert*09/18/2014 Displacement of cervical intervertebral disc wi*01/12/2015 Encounter Status:Closed by ZEE KWAN on 04/12/24 Normal [facility] CBC W Auto Differential pane l (Bld)on 03-22-2024 Basophils (Bld) [#/Vol] 0.03 10*3/uL Normal <0.11 [facility] Comment on above: Order Comment: Speci men Type: BLOOD SPECIMEN Ordering Facility: [facility] Address: [address] [place] [address] Performed By: #### 5 7021-8 #### [facility] CLIA [id number] [address] [place] [address] [place] Basophils/100 WBC (Bld) 0.4 % Normal [facility] Comment on above: Order Comment: Speci men Type: BLOOD SPECIMEN Ordering Facility: [facility] Address: [address] [place] [address] Performed By: #### 5 7021-8 #### [facility] CLIA [id number] [address] [place] [address] [place] Differential cell count method Nom (Bld) Auto Normal [facility] Comment on above: Order Comment: Speci men Type: BLOOD SPECIMEN Ordering Facility: [facility] Address: [address] [place] [address] Performed By: #### 5 7021-8 #### [facility] CLIA [id number] [address] [place] [address] [place] Eosinophils (Bld) [#/Vol] 0.18 10*3/uL Normal <0.46 [facility] Comment on above: Order Comment: Speci men Type: BLOOD SPECIMEN Ordering Facility: [facility] Address: [address] [place] [address] Performed By: #### 5 7021-8 #### [facility] CLIA [id number] [address] [place] [address] [place] Eosinophils/100 WBC (Bld) 2.4 % Normal [facility] Comment on above: Order Comment: Speci men Type: BLOOD SPECIMEN Ordering Facility: [facility] Address: [address] [place] [address] Performed By: #### 5 7021-8 #### [facility] CLIA [id number] [address] [place] [address] [place] Erythrocyte distribution width (RBC) [Ratio] 12.6 % Normal 11.5-15.0 [facility] Comment on above: Order Comment: Speci men Type: BLOOD SPECIMEN Ordering Facility: [facility] Address: [address] [place] [address] Performed By: #### 5 7021-8 #### [facility] CLIA [id number] [address] [place] [address] [place] Hematocrit (Bld) [Volume fraction] 45.3 % Normal 39.0-51.0 [facility] Comment on above: Order Comment: Speci men Type: BLOOD SPECIMEN Ordering Facility: [facility] Address: [address] [place] [address] Performed By: #### 5 7021-8 #### [facility] CLIA [id number] [address] [place] [address] [place] Hemoglobin (Bld) [Mass/Vol] 15.2 g/dL Normal 13.0-17.0 [facility] Comment on above: Order Comment: Speci men Type: BLOOD SPECIMEN Ordering Facility: [facility] Address: [address] [place] [address] Performed By: #### 5 7021-8 #### [facility] CLIA [id number] [address] [place] [address] [place] Immature granulocytes (Bld) [#/Vol] 10*3/uL Normal <0.10 [facility] Comment on above: Order Comment: Speci men Type: BLOOD SPECIMEN Ordering Facility: [facility] Address: [address] [place] [address] Performed By: #### 5 7021-8 #### [facility] CLIA [id number] [address] [place] [address] [place] Immature granulocytes/100 WBC (Bld) 0.1 % Normal [facility] Comment on above: Order Comment: Speci men Type: BLOOD SPECIMEN Ordering Facility: [facility] Address: [address] [place] [address] Performed By: #### 5 7021-8 #### [facility] CLIA [id number] [address] [place] [address] [place] Lymphocytes (Bld) [#/Vol] 2.80 10*3/uL Normal 1.00-4.00 [facility] Comment on above: Order Comment: Speci men Type: BLOOD SPECIMEN Ordering Facility: [facility] Address: [address] [place] [address] Performed By: #### 5 7021-8 #### [facility] CLIA [id number] [address] [place] [address] [place] Lymphocytes/100 WBC (Bld) 37.6 % Normal [facility] Comment on above: Order Comment: Speci men Type: BLOOD SPECIMEN Ordering Facility: [facility] Address: [address] [place] [address] Performed By: #### 5 7021-8 #### [facility] CLIA [id number] [address] [place] [address] [place] MCH (RBC) [Entitic mass] 31.4 pg Normal 26.0-34.0 [facility] Comment on above: Order Comment: Speci men Type: BLOOD SPECIMEN Ordering Facility: [facility] Address: [address] [place] [address] Performed By: #### 5 7021-8 #### [facility] CLIA [id number] [address] [place] [address] [place] MCHC (RBC) [Mass/Vol] 33.6 g/dL Normal 30.5-36.0 [facility] Comment on above: Order Comment: Speci men Type: BLOOD SPECIMEN Ordering Facility: [facility] Address: [address] [place] [address] Performed By: #### 5 7021-8 #### [facility] CLIA [id number] [address] [place] [address] [place] MCV (RBC) [Entitic vol] 93.6 fL Normal 80.0-100.0 [facility] Comment on above: Order Comment: Speci men Type: BLOOD SPECIMEN Ordering Facility: [facility] Address: [address] [place] [address] Performed By: #### 5 7021-8 #### [facility] CLIA [id number] [address] [place] [address] [place] Monocytes (Bld) [#/Vol] 0.61 10*3/uL Normal <0.87 [facility] Comment on above: Order Comment: Speci men Type: BLOOD SPECIMEN Ordering Facility: [facility] Address: [address] [place] [address] Performed By: #### 5 7021-8 #### [facility] CLIA [id number] [address] [place] [address] [place] Monocytes/100 WBC (Bld) 8.2 % Normal [facility] Comment on above: Order Comment: Speci men Type: BLOOD SPECIMEN Ordering Facility: [facility] Address: [address] [place] [address] Performed By: #### 5 7021-8 #### [facility] CLIA [id number] [address] [place] [address] [place] Neutrophils (Bld) [#/Vol] 3.82 10*3/uL Normal 1.45-7.50 [facility] Comment on above: Order Comment: Speci men Type: BLOOD SPECIMEN Ordering Facility: [facility] Address: [address] [place] [address] Performed By: #### 5 7021-8 #### [facility] CLIA [id number] [address] [place] [address] [place] Neutrophils/100 WBC (Bld) 51.3 % Normal [facility] Comment on above: Order Comment: Speci men Type: BLOOD SPECIMEN Ordering Facility: [facility] Address: [address] [place] [address] Performed By: #### 5 7021-8 #### [facility] CLIA [id number] [address] [place] [address] [place] Nucleated RBC (Bld) [#/Vol] 10*3/uL Normal <0.01 [facility] Comment on above: Order Comment: Speci men Type: BLOOD SPECIMEN Ordering Facility: [facility] Address: [address] [place] [address] Performed By: #### 5 7021-8 #### [facility] CLIA [id number] [address] [place] [address] [place] Nucleated RBC/100 WBC (Bld) [Ratio] 0.0 /100 WBC Normal [facility] Comment on above: Order Comment: Speci men Type: BLOOD SPECIMEN Ordering Facility: [facility] Address: [address] [place] [address] Performed By: #### 5 7021-8 #### [facility] CLIA [id number] [address] [place] [address] [place] Platelet mean volume (Bld) [Entitic vol] 9.8 fL Normal 9.0-12.7 [facility] Comment on above: Order Comment: Speci men Type: BLOOD SPECIMEN Ordering Facility: [facility] Address: [address] [place] [address] Performed By: #### 5 7021-8 #### [facility] CLIA [id number] [address] [place] [address] [place] Platelets (Bld) [#/Vol] 300 10*3/uL Normal 150-400 [facility] Comment on above: Order Comment: Speci men Type: BLOOD SPECIMEN Ordering Facility: [facility] Address: [address] [place] [address] Performed By: #### 5 7021-8 #### [facility] CLIA [id number] [address] [place] [address] [place] RBC (Bld) [#/Vol] 4.84 10*6/uL Normal 4.20-6.00 [facility] Comment on above: Order Comment: Speci men Type: BLOOD SPECIMEN Ordering Facility: [facility] Address: [address] [place] [address] Performed By: #### 5 7021-8 #### [facility] CLIA [id number] [address] [place] [address] [place] WBC (Bld) [#/Vol] 7.45 10*3/uL Normal 3.70-11.00 [facility] Comment on above: Order Comment: Speci men Type: BLOOD SPECIMEN Ordering Facility: [facility] Address: [address] [place] [address] Performed By: #### 5 7021-8 #### [facility] CLIA [id number] [address] [place] [address] [place] CNOVon 03-22-2024 CNOV Office Visit ([facility] ) -- WALIEBLEMSIDDHARTH ([id number]) 1975 M Date Time Provider Department 03/22/24 3:00 PM DEBBY BRAUN [facility] During your visit today, we recorded the following information about you: Pulse Respiration Blood pressure Weight 57/minute 20/minute 124/86 104 kg Height 1.727 m Debby Braun APRN.CNP 03/22/2024 3:18 PM Signed This note was created using [employer]. Subjective Siddharth Keyes is a 48 year old male. Patient presents with: Consult: Discuss medications, headaches, anxiety to establish care Pt here to est care with multiple concerns States he has been having headaches but notices he's grinding his teeth a lot and clenching his jaw Notices some clicking in his jaw. States he also has anxiety and overwhelming feelings especially around people and filling out paperwork. Mainly anxiety, no depression Sleeps well Has lack of focus and agitation at times. Admits his sister is on Zoloft and does very well with this. Has tried therapy in the past. 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 Does not exercise Knows he needs to lose weight as he feels more knee discomfort. Diet: trying to eat better, cutting out sweets. Eating more fruits and peanuts. No soda or bread Drinks 5 arriola per day Eating 1 meal per day Taking magnesium, multivitamin and other supplements. The history is provided by the patient. No refrigerator repair technician was used. Review of Systems Constitutional: Negative for appetite change, chills, diaphoresis, fatigue and fever. HENT: Negative for tinnitus. Eyes: Negative for photophobia and visual disturbance. Respiratory: Negative for cough, chest tightness, shortness of breath and wheezing. Cardiovascular: Negative for chest pain, palpitations and leg swelling. Gastrointestinal: Negative. Genitourinary: Negative. Skin: Negative for rash. Neurological: Positive for headaches. Negative for dizziness, syncope, weakness, light-headedness and numbness. Psychiatric/Behavioral: Positive for agitation and decreased concentration. Negative for dysphoric mood, self-injury, sleep disturbance and suicidal ideas. The patient is nervous/anxious. All other systems reviewed and are negative. Objective BP 124/86 (BP Site: Left Arm, BP Position: Sitting) Pulse (!) 57 Resp 20 Ht 172.7 cm (5' 8) Wt 104 kg (229 lb 4.5 oz) SpO2 96% BMI 34.86 kg/m? PAST MEDICAL HISTORY Diagnosis Date DDD (degenerative disc disease) Mixed anxiety and depressive disorder PAST SURGICAL HISTORY Procedure Laterality Date APPENDECTOMY KNEE ARTHROSCOPY Bone fragment. PAST SURGICAL HISTORY OF lumbar and cervical pain injections. No current outpatient medications on file prior to visit. No current facility-administered medications on file prior to visit. ALLERGIES Allergen Reactions Penicillins Rash Latex Rash Rash on hands with latex gloves Pepto-Bismol [Bismu* Rash Wool Rash Physical Exam Vitals and nursing note reviewed. Constitutional: General: He is awake. He is not in acute distress. Appearance: Normal appearance. He is well-developed. He is obese. He is not ill-appearing. HENT: Head: Normocephalic. Jaw: No tenderness or swelling. Eyes: General: Lids are normal. Conjunctiva/sclera: Conjunctivae normal. Pupils: Pupils are equal, round, and reactive to light. Cardiovascular: Rate and Rhythm: Normal rate and regular rhythm. Pulses: Normal pulses. Heart sounds: Normal heart sounds. Pulmonary: Effort: Pulmonary effort is normal. No respiratory distress. Breath sounds: Normal breath sounds. No decreased breath sounds or wheezing. Musculoskeletal: General: No swelling. Normal range of motion. Right lower leg: No edema. Left lower leg: No edema. Skin: General: Skin is warm and dry. Capillary Refill: Capillary refill takes less than 2 seconds. Findings: No rash. Neurological: General: No focal deficit present. Mental Status: He is alert and oriented to person, place, and time. Mental status is at baseline. Cranial Nerves: No cranial nerve deficit. Sensory: Sensation is intact. No sensory deficit. Motor: Motor function is intact. No weakness. Coordination: Coordination is intact. Gait: Gait is intact. Gait normal. Psychiatric: Attention and Perception: Attention and perception normal. Mood and Affect: Affect normal. Mood is anxious. Speech: Speech is rapid and pressured. Behavior: Behavior is hyperactive. Behavior is cooperative. Thought Content: Thought content normal. Thought content does not include homicidal or suicidal ideation. Cognition and Memory: Cognition and memory normal. Judgment: Judgment normal. ASSESSMENT/PLAN: 1. ANN (generalized anxiety disorder) - ICD9: 300.02, ICD10: F41.1 (primary diagnosis) - follow (more content not included)... Normal [facility] Comprehensive metabolic 2000 panelon 03-22-2024 Albumin [Mass/Vol] 4.5 g/dL Normal 3.9-4.9 [facility] Comment on above: Order Comment: Speci men Type: BLOOD SPECIMEN Ordering Facility: [facility] Address: [address] [place] [address] Performed By: #### 2 4323-8 #### [facility] CLIA [id number] [address] [place] [address] [place] [address] [place] ALP [Catalytic activity/Vol] 94 U/L Normal 38-113 [facility] Comment on above: Order Comment: Speci men Type: BLOOD SPECIMEN Ordering Facility: [facility] Address: [address] [id number] Performed By: #### 2 4323-8 #### [facility] CLIA [id number] [address] [place] [address] [place] ALT [Catalytic activity/Vol] 40 U/L Normal 10-54 [facility] Comment on above: Order Comment: Speci men Type: BLOOD SPECIMEN Ordering Facility: [facility] Address: [address] [place] [address] Performed By: #### 2 4323-8 #### [facility] CLIA [id number] [address] [place] [address] [place] Anion gap [Moles/Vol] 11 mmol/L Normal 8-15 [facility] Comment on above: Order Comment: Speci men Type: BLOOD SPECIMEN Ordering Facility: [facility] Address: [address] [place] [address] Performed By: #### 2 4323-8 #### [facility] CLIA [id number] [address] [place] [address] [place] AST [Catalytic activity/Vol] 35 U/L Normal 14-40 [facility] Comment on above: Order Comment: Speci men Type: BLOOD SPECIMEN Ordering Facility: [facility] Address: [address] [place], [place] [id number] Performed By: #### 2 4323-8 #### [facility] CLIA [id number] [address] [place] [address] [place] Bilirubin [Mass/Vol] 0.5 mg/dL Normal 0.2-1.3 [facility] Comment on above: Order Comment: Speci men Type: BLOOD SPECIMEN Ordering Facility: [facility] Address: [address] [place] [address] Performed By: #### 2 4323-8 #### [facility] CLIA [id number] [address] [place] [address] [place] Calcium [Mass/Vol] 9.6 mg/dL Normal 8.5-10.2 [facility] Comment on above: Order Comment: Speci men Type: BLOOD SPECIMEN Ordering Facility: [facility] Address: [address] [place] [address] Performed By: #### 2 4323-8 #### [facility] CLIA [id number] [address] [place] [address] [place] Chloride [Moles/Vol] 106 mmol/L Normal 98-107 [facility] Comment on above: Order Comment: Speci men Type: BLOOD SPECIMEN Ordering Facility: [facility] Address: [address] [place] [address] Performed By: #### 2 4323-8 #### [facility] CLIA [id number] [address] [place] [address] [place] CO2 [Moles/Vol] 24 mmol/L Normal 22-30 [facility] Comment on above: Order Comment: Speci men Type: BLOOD SPECIMEN Ordering Facility: [facility] Address: [address] [place] [address] Performed By: #### 2 4323-8 #### [facility] CLIA [id number] [address] [place] [address] [place] Creatinine [Mass/Vol] 0.92 mg/dL Normal 0.73-1.22 [facility] Comment on above: Order Comment: Speci men Type: BLOOD SPECIMEN Ordering Facility: [facility] Address: [address] [place] [address] Performed By: #### 2 4323-8 #### [facility] CLIA [id number] [address] [place] [address] [place] Creatinine and Glomerular filtration rate.predicted panel (S/P/Bld) 103 mL/min/1.73m??? Normal >=60 [facility] Comment on above: Order Comment: Speci men Type: BLOOD SPECIMEN Ordering Facility: [facility] Address: [address] [place] [address] Result Comment: Inessa mated Glomerular Filtration Rate (eGFR) is calculated using the 2020 CKD-EPI creatinine equation. This equation utilizes serum creatinine, sex, and age as parameters. The creatinine assay has traceable calibration to isotope dilution-mass spectrometry. Refer to KDIGO guidelines for clinical interpretation. In patients with unstable renal function, e.g. those with acute kidney injury, the eGFR may not accurately reflect actual GFR. Performed By: #### 2 4323-8 #### [facility] CLIA [id number] [address] [place] [address] [place] Glucose [Mass/Vol] 80 mg/dL Normal 74-99 [facility] Comment on above: Order Comment: Checo tirado Type: BLOOD SPECIMEN Ordering Facility: [facility] Address: [address] [place] [address] Result Comment: The [place] Diabetes Association (ADA) provides guidance for cutoff values for fasting glucose and random glucose. The ADA defines fasting as no caloric intake for at least 8 hours. Fasting plasma glucose results between 100 to 125 mg/dL indicate increased risk for diabetes (prediabetes). Fasting plasma glucose results greater than or equal to 126 mg/dL meet the criteria for diagnosis of diabetes. In the absence of unequivocal hyperglycemia, results should be confirmed by repeat testing. In a patient with classic symptoms of hyperglycemia or hyperglycemic crisis, random plasma glucose results greater than or equal to 200 mg/dL meet the criteria for diagnosis of diabetes. Reference: Standards of Medical Care in Diabetes 2016, [place] Diabetes Association. Diabetes Care. 2016.39(Suppl 1). Performed By: #### 2 4323-8 #### [facility] CLIA [id number] [address] [place] [address] [place] Potassium [Moles/Vol] 4.3 mmol/L Normal 3.7-5.1 [facility] Comment on above: Order Comment: Cehco tirado Type: BLOOD SPECIMEN Ordering Facility: [facility] Address: [address] [place] [address] Performed By: #### 2 4323-8 #### [facility] CLIA [id number] [address] [place] [address] [place] Protein [Mass/Vol] 7.5 g/dL Normal 6.3-8.0 [facility] Comment on above: Order Comment: Speci men Type: BLOOD SPECIMEN Ordering Facility: [facility] Address: [address] [place] [address] Performed By: #### 2 4323-8 #### [facility] CLIA [id number] [address] [place] [address] [place] Sodium [Moles/Vol] 141 mmol/L Normal 136-144 [facility] Comment on above: Order Comment: Speci men Type: BLOOD SPECIMEN Ordering Facility: [facility] Address: [address] [place] [address] Performed By: #### 2 4323-8 #### [facility] CLIA [id number] [address] [place] [address] [place] Urea nitrogen [Mass/Vol] 14 mg/dL Normal 9-24 [facility] Comment on above: Order Comment: Speci men Type: BLOOD SPECIMEN Ordering Facility: [facility] Address: [address] [place] [address] Performed By: #### 2 4323-8 #### [facility] CLIA [id number] [address] [place] [address] [place] HbA1c (Bld)on 03-22-2024 Average glucose Estimated from glycated hemoglobin (Bld) [Mass/Vol] 103 mg/dL Normal [facility] Comment on above: Order Comment: Speci men Type: BLOOD SPECIMEN Ordering Facility: [facility] Address: [address] [place] [address] Result Comment: eAG: (Estimated average glucose) is a calculated value from HgbA1c and is sales representative publications of the average blood glucose level in the last 2-3 month period. Performed By: #### 5 5454-3 #### [facility] CLIA [id number] [address] [place] [address] [place] HbA1c (Bld) [Mass fraction] 5.2 % Normal 4.3-5.6 [facility] Comment on above: Order Comment: Speci men Type: BLOOD SPECIMEN Ordering Facility: [facility] Address: [address] [place] [address] Result Comment: [place] Diabetes Association guidelines indicate that patients with HgbA1c in the range 5.7-6.4% are at increased risk for development of diabetes, and intervention by lifestyle modification may be beneficial. HgbA1c greater or equal to 6.5% is considered diagnostic of diabetes. Performed By: #### 5 5454-3 #### [facility] IA [id number] [address] [place] [address] [place] PSA/PROSTATE SPECIFIC ANTIGE N SCREENINGon 03-22-2024 Prostate specific Ag [Mass/Vol] 0.37 ng/mL Normal <2.60 [facility] Comment on above: Order Comment: Speci men Type: BLOOD SPECIMEN Ordering Facility: [facility] Address: [address] [place] [address] Result Comment: Tota l PSA test methodology used is the Electrochemiluminescence Immunoassay by [employer]. Total PSA values by differing methodologies cannot be interchanged. Performed By: #### P SAS1 #### [facility] IA [id number] [address] [place] [address] [place] CNOVon 01-03-2024 CNOV Office Visit ([facility] ) -- SIDDHARTH KEYES ([id number]) 1975 M Date Time Provider Department 01/03/24 1:15 PM OTILIO CORONA [facility] During your visit today, we recorded the following information about you: Temperature Pulse Respiration Blood pressure 97.6 degrees 105/minute 21/minute 110/80 Weight 103.2 kg Otilio Corona MD 01/03/2024 2:04 PM Signed Patient presents with: Sore Throat: Cough, chest congestion, chest pain x 1 day HPI: Feeling sick for the last 2-3 days. Positive symptoms: Cough, Shortness of breath, Chest pain, palpitations, Sore throat, Feverish, Body Aches, Malaise, Negative symptoms: Vomiting, Diarrhea, acid brash, Nasal Congestion, OTC: Lozenges Chest pain: Duration: couple hours, started after eating Location: right lower chest Character: sharp Aggravating: not brought on by breathing Associated: current URI with throat tickling cough, feels like his breathing is labored and noticed palpitations since his chest pain started Pertinent negatives: Denies tenderness with palpation FHx is positive for mother with heart attacks and heart failure. PAST MEDICAL HISTORY Diagnosis Date DDD (degenerative disc disease) Mixed anxiety and depressive disorder MEDICATIONS: No current outpatient medications on file. No current facility-administered medications for this visit. ALLERGIES: ALLERGIES Allergen Reactions Penicillins Rash Latex Rash Rash on hands with latex gloves Pepto-Bismol [Bismu* Rash Wool Rash VITALS: BP 110/80 Pulse 105 Temp 36.4 ?C (97.6 ?F) Resp 21 Wt 103.2 kg (227 lb 8.2 oz) SpO2 98% BMI 34.59 kg/m? PHYSICAL EXAM: GEN: mildly ill appearing HEENT: PERRL, EOMI, conjunctiva clear Ears: canals clear. TMs without erythema, bulge, or effusion Sinuses: non-tender frontal sinus, non-tender maxillary sinuses Throat: moist mucous membranes, mild erythema, no exudate Neck: supple, no thyromegaly, no lymphadenopathy HEART: borderline fast rate and regular rhythm, no murmurs LUNGS: clear to auscultation, no wheezes or crackles, no increased WOB CHEST: no tenderness with palpation ABD: Soft, non-distended, non-tender, no masses ASSESSMENT/PLAN: 1. Sore throat - ICD9: 462, ICD10: J02.9 (primary diagnosis) - suspect viral URI - STREP A MOLECULAR (POC) - negative 2. Right-sided chest pain - ICD9: 786.50, ICD10: R07.9 3. SOB (shortness of breath) - ICD9: 786.05, ICD10: R06.02 4. Palpitations - ICD9: 785.1, ICD10: R00.2 Normal exam except for tachycardia. Cannot rule out acute coronary syndrome. He will have his raawzdq-mg-srr drive him to [facility] ER for further chest pain evaluation. Otilio Corona MD Referring Provider: SELF [200] Allergies As of Date: 01/03/2024 Noted Allergy Reaction PENICILLINS 05/22/2014 2 - Rash LATEX 09/09/2014 2 - Rash Comments: Rash on hands with latex gloves PEPTO-BISMOL (BISMUTH SUBSALICYLA*05/25/2007 2 - Rash WOOL 05/25/2007 2 - Rash Date Reviewed: 01/03/2024 Reviewed by: Anne-Marie Hough MA - Fully Assessed Reason for Visit: Sore Throat [200] Cmt: Cough, chest congestion, chest pain x 1 day Primary Visit Diagnosis:Sore throat [J02.9] Other Visit Diagnoses:Right-sided chest pain [R07.9] SOB (shortness of breath) [R06.02] Palpitations [R00.2] Order(s):STREP A MOLECULAR (POC) [7387805] Order #: [id number]. 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] 05/25/2007 09/03/2014 Other specified drug dependence, in remission (*05/25/2007 09/03/2014 ALLERGIC RHINITIS NOS [J30.9] 05/25/2007 ESOPHAGEAL REFLUX [K21.9] 05/25/2007 SMELL AND TASTE DISTURB [R43.9] 05/25/2007 TOBACCO USE DISORDER [F17.200] 05/25/2007 Lumbar spondylosis [M47.816] 05/15/2014 DDD (degenerative disc disease), lumbar [M51.36]05/15/2014 Cervicalgia [M54.2] 05/15/2014 Cervical radiculopathy [M54.12] 05/15/2014 Cervical disc displacement [M50.20] 05/15/2014 Thoracic or lumbosacral neuritis or radiculitis*09/18/2014 Lumbago [M54.50] 09/18/2014 Degeneration of lumbar or lumbosacral intervert*09/18/2014 Displacement of cervical intervertebral disc wi*01/12/2015 Medications Discontinued During This Encounter Prescriptions - traZODone (DESYREL) 150 mg tablet (Discontinued) Reported on 01/03/2024 - ondansetron (ZOFRAN, HYDROCHLORIDE,) 4 mg tablet (Discontinued) Reported on 01/03/2024 - cyclobenzaprine (FLEXERIL) 10 mg tablet (Discontinued) Reported on 01/03/2024 - clonazePAM (KLONOPIN) 1 mg tablet (Discontinued) Reported on 01/03/2024 - citalopram (CELEXA) 40 mg tablet (Discontinued) Reported on 01/03/2024 Encounter Status:Closed by OTILIO CORONA on 01/03/24 Normal [facility] STREP A MOLECULAR (POC)on Procedural Control Valid [facility] Strep A (POCT) Negative Negative [facility] Absolute lymphocyte countOrd ered By: Dr. Chester on 09-28-2022 Lymphocytes Auto (Unsp spec) [#/Vol] 3.01 10*3/uL 0.83-4.51 [facility] Basophil percentageOrdered B y: Dr. Chester on 09-28-2022 Basophil percentage 0-5 SEEN /hpf 0-5 [facility] Basophils/100 WBC (Bld) 0.2 % 0-1 [facility] Bilirubin [Mass/Vol] 0.50 mg/dL 0.20-1.00 [facility] Comment on above: For patients on eltr ombopag therapy, use of Dimension [place] TBIL is not recommended. Chloride [Moles/Vol] 109 mmol/L 98-107 [facility] Eosinophils/100 WBC (Bld) 1.4 % 0-5 [facility] Glucose [Mass/Vol] 85 mg/dL 74-106 [facility] Neutrophils (Bld) [#/Vol] 9.1 10*3/uL 2.0-7.7 [facility] Neutrophils/100 WBC (Bld) 67.4 % 47-70 [facility] Potassium [Moles/Vol] 3.8 mmol/L 3.5-5.1 [facility] Protein [Mass/Vol] 7.7 g/dL 6.4-8.2 [facility] Sodium [Moles/Vol] 139 mmol/L 136-145 [facility] WBC (Bld) [#/Vol] 13.6 10*3/uL 4.4-11.0 [facility] Bilirubin Test strip Ql (U)O rdered By: Dr. Chester on 09-28-2022 Bilirubin Ql (U) Negative Negative [facility] Blood erythrocytes count (nu mber/volume)Ordered By: Dr. Chester on 09-28-2022 RBC (Bld) [#/Vol] 4.42 10*6/uL 4.6-6.2 [facility] Blood hemoglobin measurement (mass/volume)Ordered By: Dr. Chester on 09-28-2022 Hemoglobin (Bld) [Mass/Vol] 13.7 g/dL 13.0-16.5 [facility] Blood lymphocytes/100 leukoc ytesOrdered By: Dr. Chester on 09-28-2022 Lymphocytes/100 WBC (Bld) 22.2 % 19-41 [facility] Blood monocytes/100 leukocyt esOrdered By: Dr. Chester on 09-28-2022 Monocytes/100 WBC (Bld) 8.4 % 0-10 [facility] Blood platelet mean volumeOr dered By: Dr. Chester on 09-28-2022 Platelet mean volume (Bld) [Entitic vol] 9.4 fL 6.2-12.0 [facility] Determination of erythrocyte mean corpuscular volume (MCV)Ordered By: Dr. Chester on 09-28-2022 MCV (RBC) [Entitic vol] 93.0 fL 80-94 [facility] Hematocrit Auto (Bld) [Volum e fraction]Ordered By: Dr. Chester on 09-28-2022 Hematocrit (Bld) [Volume fraction] 41.1 % 40-54 [facility] Ketones Test strip Ql (U)Ord ered By: Dr. Chester on 09-28-2022 Ketones Ql (U) 5 mg/dl Negative [facility] Laboratory - Chemistry and C hemistry - challengeOrdered By: Dr. Chester on 09-28-2022 ALP [Catalytic activity/Vol] 94 U/L 45-117 [facility] ALT [Catalytic activity/Vol] 30 U/L 16-61 [facility] CO2 [Moles/Vol] 25.0 mmol/L 21.0-32.0 [facility] Globulin (S) [Mass/Vol] 3.9 g/dL 2.2-4.2 [facility] Urea nitrogen/Creatinine [Mass ratio] 17.6 mg/mg 10-20 [facility] - Hematology and Cell countsOrdered By: Dr. Chester on 09-28-2022 Erythrocyte distribution width (RBC) [Entitic vol] 43.6 fL 35.1-43.9 [facility] [facility] Erythrocyte distribution width (RBC) [Ratio] 12.7 % 11.6-14.6 [facility] Immature granulocytes/100 WBC (Bld) 0.400 % 0.0-0.9 [facility] Comment on above: IG% - Immature Granu locytes (promyelocytes, myelocytes and metamyelocytes) > 1% indicates that a LEFT SHIFT is Present. MCH (RBC) [Entitic mass] 31.0 pg 27.0-32.0 [facility] Nucleated RBC/100 WBC (Bld) [Ratio] 0 % 0-5 [facility] MCHC Auto (RBC) [Mass/Vol]Or dered By: Dr. Chester on 09-28-2022 MCHC (RBC) [Mass/Vol] 33.3 g/dL 32-36 [facility] Mucus LM Ql (Urine sed)Order ed By: Dr. Chester on 09-28-2022 Mucus Ql (Urine sed) 0 SEEN /hpf [facility] Nitrite Test strip Ql (U)Ord ered By: Dr. Chester on 09-28-2022 Nitrite Ql (U) Negative Negative [facility] No Panel InformationOrdered By: Dr. Chester on 09-28-2022 Estimated Creatinine Clearance Calc 75.04 ml/min [facility] Estimated GFR (MDRD) Amer 85 mL/min >60 [facility] Comment on above: GFR Calc Estimated GFR (MDRD) Non-Af Amer 70 mL/min >60 [facility] Comment on above: Non- GFR Calc Platelets bldOrdered By: Dr. Chester on 09-28-2022 Platelets (Bld) [#/Vol] 288 10*3/uL 150-450 [facility] Protein Test strip Ql (U)Ord ered By: Dr. Chester on 09-28-2022 Protein Ql (U) 15 mg/dl Negative [facility] Serum or plasma albumin yuly urement (mass/volume)Ordered By: Dr. Chester on 09-28-2022 Albumin [Mass/Vol] 3.8 g/dL 3.2-5.0 [facility] Serum or plasma albumin/glob ulin mass ratioOrdered By: Dr. Chester on 09-28-2022 Albumin/Globulin [Mass ratio] 1.0 {ratio} 0.9-2.4 [facility] Serum or plasma calcium yuly urement (mass/volume)Ordered By: Dr. Chester on 09-28-2022 Calcium [Mass/Vol] 9.7 mg/dL 8.5-10.1 [facility] Serum or plasma creatinine m easurement (mass/volume)Ordered By: Dr. Chester on 09-28-2022 Creatinine [Mass/Vol] 1.19 mg/dL 0.70-1.30 [facility] Comment on above: The validity of the calculated GFR & GFRAA in patients over 70 years has not been determined. Clinical correlation is essential. Serum or plasma urea nitroge n measurement (mass/volume)Ordered By: Dr. Chester on 09-28-2022 Urea nitrogen [Mass/Vol] 21 mg/dL - [facility] Squamous epithelial cells de tection in urine sediment by light microscopyOrdered By: Dr. Chester on 09-28-2022 Epithelial cells.squamous LM Ql (Urine sed) 0 SEEN /hpf 0-5 [facility] Thin prep Papanicolaou smear with manual screeningOrdered By: Dr. Chester on 09-28-2022 Thin prep Papanicolaou smear with manual screening 23 U/L 15-37 [facility] Thin prep Papanicolaou smear with manual screening 5 5-15 [facility] Urine blood detectionOrdered By: Dr. Chester on 09-28-2022 RBC Ql (U) 250 /ul Negative [facility] RBC Ql (U) 10-25 SEEN /hpf 0-5 [facility] Urine clarityOrdered By: Dr. Chester on 09-28-2022 Clarity (U) Clear Clear [facility] Urine color determinationOrd ered By: Dr. Chester on 09-28-2022 Color (U) Yellow Yellow [facility] Urine glucose detectionOrder ed By: Dr. Chester on 09-28-2022 Glucose Ql (U) Normal mg/dl Normal [facility] Urine leukocyte esterase det ection by dipstickOrdered By: Dr. Chester on 09-28-2022 Leukocyte esterase Test strip Ql (U) 100 /ul Negative [facility] Urine pHOrdered By: Dr. River adkins on 09-28-2022 pH (U) 6.0 [pH] 5.0 - 8.0 [facility] Urine sediment bacteria coun t by microscopy (number/high power field)Ordered By: Dr. Chester on 09-28-2022 Bacteria LM.HPF (Urine sed) [#/Area] 0 /[HPF] None Seen [facility] Urine specific gravity measu rementOrdered By: Dr. Chester on 09-28-2022 Specific gravity (U) [Rel density] 1.015 1.002-1.03 0 [facility] Urobilinogen Auto test strip Ql (U)Ordered By: Dr. Chester on 09-28-2022 Urobilinogen Ql (U) Normal mg/dl Normal [facility] Influenza virus A and B and SARS-CoV-2 (COVID-19) Ag panel - Upper respiratory specimOrdered By: Dr. Oconnor on 07-11-2022 SARS-CoV-2 (COVID-19) RNA BYRON+probe Ql (Resp) [facility] Absolute lymphocyte countOrd ered By: Dr. Reynoso on 06-08-2022 Lymphocytes Auto (Unsp spec) [#/Vol] 2.97 10*3/uL 0.83-4.51 [facility] Basophil percentageOrdered B y: Dr. Reynoso on 06-08-2022 Basophil percentage 0 SEEN /hpf 0-5 [facility] Basophils/100 WBC (Bld) 0.5 % 0-1 [facility] Chloride [Moles/Vol] 105 mmol/L 98-107 [facility] Eosinophils/100 WBC (Bld) 3.3 % 0-5 [facility] Glucose [Mass/Vol] 79 mg/dL 74-106 [facility] Neutrophils (Bld) [#/Vol] 3.8 10*3/uL 2.0-7.7 [facility] Neutrophils/100 WBC (Bld) 48.2 % 47-70 [facility] Potassium [Moles/Vol] 3.6 mmol/L 3.5-5.1 [facility] Sodium [Moles/Vol] 141 mmol/L 136-145 [facility] WBC (Bld) [#/Vol] 7.9 10*3/uL 4.4-11.0 [facility] Bilirubin Test strip Ql (U)O rdered By: Dr. Reynoso on 06-08-2022 Bilirubin Ql (U) Negative Negative [facility] Blood erythrocytes count (nu mber/volume)Ordered By: Dr. Reynoso on 06-08-2022 RBC (Bld) [#/Vol] 4.34 10*6/uL 4.6-6.2 [facility] Blood hemoglobin measurement (mass/volume)Ordered By: Dr. Reynoso on 06-08-2022 Hemoglobin (Bld) [Mass/Vol] 14.2 g/dL 13.0-16.5 [facility] Blood lymphocytes/100 leukoc ytesOrdered By: Dr. Reynoso on 06-08-2022 Lymphocytes/100 WBC (Bld) 37.8 % 19-41 [facility] Blood monocytes/100 leukocyt esOrdered By: Dr. Reynoso on 06-08-2022 Monocytes/100 WBC (Bld) 10.1 % 0-10 [facility] Blood platelet mean volumeOr dered By: Dr. Reynoso on 06-08-2022 Platelet mean volume (Bld) [Entitic vol] 9.2 fL 6.2-12.0 [facility] Determination of erythrocyte mean corpuscular volume (MCV)Ordered By: Dr. Reynoso on 06-08-2022 MCV (RBC) [Entitic vol] 95.9 fL 80-94 [facility] Hematocrit Auto (Bld) [Volum e fraction]Ordered By: Dr. Reynoso on 06-08-2022 Hematocrit (Bld) [Volume fraction] 41.6 % 40-54 [facility] Ketones Test strip Ql (U)Ord ered By: Dr. Reynoso on 06-08-2022 Ketones Ql (U) Negative Negative [facility] Laboratory - Chemistry and C hemistry - challengeOrdered By: Dr. Reynoso on 06-08-2022 CO2 [Moles/Vol] 30.0 mmol/L 21.0-32.0 [facility] Urea nitrogen/Creatinine [Mass ratio] 15.0 mg/mg 10-20 [facility] Laboratory - Hematology and Cell countsOrdered By: Dr. Reynoso on 06-08-2022 Erythrocyte distribution width (RBC) [Entitic vol] 47.5 fL 35.1-43.9 [facility] Erythrocyte distribution width (RBC) [Ratio] 13.4 % 11.6-14.6 [facility] Immature granulocytes/100 WBC (Bld) 0.100 % 0.0-0.9 [facility] Comment on above: IG% - Immature Granu locytes (promyelocytes, myelocytes and metamyelocytes) > 1% indicates that a LEFT SHIFT is Present. MCH (RBC) [Entitic mass] 32.7 pg 27.0-32.0 [facility] Nucleated RBC/100 WBC (Bld) [Ratio] 0 % 0-5 [facility] MCHC Auto (RBC) [Mass/Vol]Or dered By: Dr. Reynoso on 06-08-2022 MCHC (RBC) [Mass/Vol] 34.1 g/dL 32-36 [facility] Mucus LM Ql (Urine sed)Order ed By: Dr. Reynoso on 06-08-2022 Mucus Ql (Urine sed) 0 SEEN /hpf [facility] Nitrite Test strip Ql (U)Ord ered By: Dr. Reynoso on 06-08-2022 Nitrite Ql (U) Negative Negative [facility] No Panel InformationOrdered By: Dr. Reynoso on 06-08-2022 Estimated Creatinine Clearance Calc 83.46 ml/min [facility] Estimated GFR (MDRD) Amer 96 mL/min >60 [facility] Comment on above: GFR Calc Estimated GFR (MDRD) Non-Af Amer 79 mL/min >60 [facility] Comment on above: Non- GFR Calc Platelets bldOrdered By: Dr. Reynoso on 06-08-2022 Platelets (Bld) [#/Vol] 316 10*3/uL 150-450 [facility] Protein Test strip Ql (U)Ord ered By: Dr. Reynoso on 06-08-2022 Protein Ql (U) Negative Negative [facility] Serum or plasma calcium yuly urement (mass/volume)Ordered By: Dr. Reynoso on 06-08-2022 Calcium [Mass/Vol] 9.6 mg/dL 8.5-10.1 [facility] Serum or plasma creatinine m easurement (mass/volume)Ordered By: Dr. Reynoso on 06-08-2022 Creatinine [Mass/Vol] 1.07 mg/dL 0.70-1.30 [facility] Comment on above: The validity of the calculated GFR & GFRAA in patients over 70 years has not been determined. Clinical correlation is essential. Serum or plasma urea nitroge n measurement (mass/volume)Ordered By: Dr. Reynoso on 06-08-2022 Urea nitrogen [Mass/Vol] 16 mg/dL 7-18 [facility] Squamous epithelial cells de tection in urine sediment by light microscopyOrdered By: Dr. Reynoso on 06-08-2022 Epithelial cells.squamous LM Ql (Urine sed) 0-5 SEEN /hpf 0-5 [facility] Thin prep Papanicolaou smear with manual screeningOrdered By: Dr. Reynoso on 06-08-2022 Thin prep Papanicolaou smear with manual screening 6 5-15 [facility] Urine blood detectionOrdered By: Dr. Reynoso on 06-08-2022 RBC Ql (U) 50 /ul Negative [facility] RBC Ql (U) 5-10 SEEN /hpf 0-5 [facility] Urine clarityOrdered By: Dr. Reynoso on 06-08-2022 Clarity (U) Clear Clear [facility] Urine color determinationOrd ered By: Dr. Reynoso on 06-08-2022 Color (U) Yellow Yellow [facility] Urine glucose detectionOrder ed By: Dr. Reynoso on 06-08-2022 Glucose Ql (U) Normal mg/dl Normal [facility] Urine leukocyte esterase det ection by dipstickOrdered By: Dr. Reynoso on 06-08-2022 Leukocyte esterase Test strip Ql (U) Negative Negative [facility] Urine pHOrdered By: Dr. Arvind perdomo on 06-08-2022 pH (U) 6.0 [pH] 5.0 - 8.0 [facility] Urine sediment bacteria coun t by microscopy (number/high power field)Ordered By: Dr. Reynoso on 06-08-2022 Bacteria LM.HPF (Urine sed) [#/Area] RARE /hpf None Seen [facility] Urine specific gravity measu rementOrdered By: Dr. Reynoso on 06-08-2022 Specific gravity (U) [Rel density] 1.015 1.002-1.03 0 [facility] Urobilinogen Auto test strip Ql (U)Ordered By: Dr. Reynoso on 06-08-2022 Urobilinogen Ql (U) Normal mg/dl Normal [facility] Basophil percentageOrdered B y: Dr. Covarrubias on 06-06-2022 Basophil percentage 0 SEEN /hpf 0-5 [facility] Bilirubin Test strip Ql (U)O rdered By: Dr. Covarrubias on 06-06-2022 Bilirubin Ql (U) Negative Negative [facility] Ketones Test strip Ql (U)Ord ered By: Dr. Covarrubias on 06-06-2022 Ketones Ql (U) Negative Negative [facility] Mucus LM Ql (Urine sed)Order ed By: Dr. Covarrubias on 06-06-2022 Mucus Ql (Urine sed) 0 SEEN /hpf [facility] Nitrite Test strip Ql (U)Ord ered By: Dr. Covarrubias on 06-06-2022 Nitrite Ql (U) Negative Negative [facility] Protein Test strip Ql (U)Ord ered By: Dr. Covarrubias on 06-06-2022 Protein Ql (U) 30 mg/dl Negative [facility] Squamous epithelial cells de tection in urine sediment by light microscopyOrdered By: Dr. Covarrubias on 06-06-2022 Epithelial cells.squamous LM Ql (Urine sed) 0 SEEN /hpf 0-5 [facility] Urine blood detectionOrdered By: Dr. Covarrubias on 06-06-2022 RBC Ql (U) 250 /ul Negative [facility] RBC Ql (U) 25-50 SEEN /hpf 0-5 [facility] Urine clarityOrdered By: Dr. Covarrubias on 06-06-2022 Clarity (U) Sl. Cloudy Clear [facility] Urine color determinationOrd ered By: Dr. Covarrubias on 06-06-2022 Color (U) Yellow Yellow [facility] Urine glucose detectionOrder ed By: Dr. Covarrubias on 06-06-2022 Glucose Ql (U) Normal mg/dl Normal [facility] Urine leukocyte esterase det ection by dipstickOrdered By: Dr. Covarrubias on 06-06-2022 Leukocyte esterase Test strip Ql (U) 25 /ul Negative [facility] Urine pHOrdered By: Dr. Shira camarena on 06-06-2022 pH (U) 6.0 [pH] 5.0 - 8.0 [facility] Urine sediment bacteria coun t by microscopy (number/high power field)Ordered By: Dr. Covarrubias on 06-06-2022 Bacteria LM.HPF (Urine sed) [#/Area] 0 /[HPF] None Seen [facility] Urine specific gravity measu rementOrdered By: Dr. Covarrubias on 06-06-2022 Specific gravity (U) [Rel density] 1.015 1.002-1.03 0 [facility] Urobilinogen Auto test strip Ql (U)Ordered By: Dr. Covarrubias on 06-06-2022 Urobilinogen Ql (U) Normal mg/dl Normal [facility] ALLIED HEALTHon 03-22-2019 ALLIED HEALTH HNO ID: [id number] Author: Andrew Jesus (Tech) Service: Radiology Author Type: Braille Coder Type: Allied Health Filed: 03/22/2019 1:11 PM Note Text: Radiology Service Progress Note PATIENT NAME: Siddharth Keyes DATE OF SERVICE: March 22, 2019 TIME: 1:10 PM PATIENT IDENTITY VERIFICATION COMPLETED USING TWO (2) METHODS: Patient confirmed name verbally and ID band matches. and Patient confirmed name verbally. PATIENT GENDER DATA: Male PATIENT RELEVANT IMPLANT DATA REVIEWED: Yes RADIOLOGY DEPARTMENT: MR; Exam(s) Completed: Spine: Lumbar spine PERIPHERAL IV DATA: Not applicable SIGNED BY: KELSI Jesus March 22, 2019 1:10 PM [facility] MRI LUMBAR SPINE WO IVCONon 03-22-2019 MRI LUMBAR SPINE WO IVCON * * *Final Report* * * DATE OF EXAM: Mar 22 2019 1:22PM [facility] [id number] - MRI LUMBAR SPINE WO IVCON / PROCEDURE REASON: FOOT DROP , S/P LUMBAR FUSION * * * * Physician Interpretation * * * * EXAMINATION: MRI LUMBAR SPINE WO IVCON CLINICAL HISTORY: Foot drop, status post lumbar fusion TECHNIQUE: Routine lumbosacral spine MR protocol without gadolinium. MQ: [id number] COMPARISON: Lumbar MRI 06/16/2016 RESULT: Counting reference: Lumbosacral junction. For the purposes of this report, L4-5 is considered the level of the iliac crest and assume there are 5 lumbar-type vertebrae. Anatomic variant: None. Alignment: Alignment remains near anatomic. Postsurgical change: There has been an interval L4 laminectomy, partial L3 laminectomy, with no suspicious collection along the surgical approach, likely remote procedure. No fixation hardware is identified. Bone marrow signal/fracture: No evidence of pathologic marrow infiltration. No evidence of prior fracture. Conus: The conus is within normal limits of signal intensity and morphology. Paraspinal soft tissues: Paraspinal soft tissues are within normal limits. Lower thoracic spine: Visualized lower thoracic canal and foramina are patent. T12-L1: Canal and foraminal remain patent L1-L2: Canal and foraminal remain patent L2-L3: Canal and foraminal remain patent L3-L4: Canal and foraminal remain patent L4-L5: There is ample decompression from laminectomy. There is mild bilateral foraminal narrowing, grossly unchanged L5-S1: There is ample decompression from laminectomy. Redemonstrated is previously seen severe right and minimal left foraminal narrowing, grossly unchanged. Sacrum and iliac wings: The visualized sacrum and iliac wings are within normal limits. IMPRESSION: 1. Interval L4-L5 laminectomy, remains in near-anatomic alignment 2. No significant central stenosis 3. Foraminal stenosis remains greatest at severe right L5-S1, grossly unchanged Anatomic Thoracic/Lumbar Variant: None. L4-5 is considered the level of the iliac crest and assume there are 5 lumbar-type vertebrae. Mid Level Game Designer: MARIA ESTHER Transcribe Date/Time: Mar 22 2019 1:51P Dictated by : MALAIKA LAMBERT MD This examination was interpreted and the report reviewed and electronically signed by: MALAIKA LAMBERT MD on Mar 22 2019 1:58PM EST [id number] Normal [facility] Basic metabolic 2000 panelon 11-02-2017 Anion gap [Moles/Vol] 10 mmol/L 5 - 13 [facility] Calcium [Mass/Vol] 9.1 mg/dL 8.4 - 10. 4 mg/dL [facility] Chloride [Moles/Vol] 104 mmol/L 97 - 11 1 mmol/L [facility] CO2 [Moles/Vol] 29 mmol/L 21 - 30 mmol/L [facility] Creatinine [Mass/Vol] 0.85 mg/dL 0.80 - 1.30 mg/dL [facility] Comment on above: Note: New reference ranges effective 12--17. GFR/1.73 sq M.predicted MDRD (S/P/Bld) [Vol rate/Area] 108 mL/min/{1.73_m2} - PINF [facility] Glucose [Mass/Vol] 81 mg/dL 68 - 110 mg/dL [facility] Interpretation and review of laboratory results Abnormal [facility] Potassium [Moles/Vol] 3.4 mmol/L 3.3 - 5.3 mmol/L [facility] Sodium [Moles/Vol] 140 mmol/L 135 - 148 mmol/L [facility] Urea nitrogen [Mass/Vol] 6 mg/dL Low 8 - 22 mg/dL [facility] PARTIAL THROMBOPLASTIN TIMEo n 11-02-2017 aPTT Coag (Bld) [Time] 31 s [facility] Interpretation and review of laboratory results [facility] PROTHROMBIN TIME AND INRon 0 11-02-2017 INR Coag (PPP) [Relative time] 1.05 {INR} 0.90 - 1.10 [facility] Interpretation and review of laboratory results Normal [facility] PT Coag (PPP) [Time] 11.9 [facility] TYPE AND SCREENon 11-02-2017 ABO and Rh group Nom (Bld) Blood group O [facility](D) [facility] antibody screen Ql Negative [facility] Comment on above: Specimen meets Blood Bank's Pre-Surgical Protocol and is valid for a surgery that is within 14 days from date of collection. Surgery date of 11/06/17 is approved for this sample. [facility] VITAMIN D, 25-HYDROXYon 10-13 25-hydroxyvitamin D3 [Mass/Vol] 13.0 ng/mL Low 30.0 - 100.0 ng/mL [facility] Interpretation and review of laboratory results Abnormal [facility] Deficient : <20.0 ng/mL Insufficient : 20.0-29.9 ng/mL Sufficient : 30.0 - 100.0 ng/mL Potential Toxicity : >100.0 ng/mL Updated reference range. This assay is certified per the CDC Vitamin D Standardization-Certificat ion Program (VDSCP). [facility] Bacteria identified Cx Nom ( Wound) Wound Culture Meth. resistant Stap h. aureus [facility] Work Phone: Gram stain for investigation of transfusion reaction Microscopic observation Gram stain Nom (Unsp spec) [facility] Work Phone: No Panel Information SARS-CoV-2 & FLU Antigen (Rapid) [facility] Work Phone: Vital Signs Date Time Vital Sign Value Performing Clinician Facility 06-10-2025 15:19-0400 Body temperature 98 [degF] No Primary Care Physician [facility] 06-10-2025 15:19-0400 Diastolic blood pressure 70 mm[Hg] No Primary Care Physician [facility] 06-10-2025 15:19-0400 Heart rate 88 /min No Primary Care Physician [facility] 06-10-2025 15:19-0400 Respiratory rate 15 /min No Primary Care Physician [facility] 06-10-2025 15:19-0400 SaO2% (BldA) [Mass fraction] 97 % No Primary Care Physician [facility] 06-10-2025 15:19-0400 Systolic blood pressure 108 mm[Hg] No Primary Care Physician [facility] 06-10-2025 12:05-0400 Body height 172.72 cm No Primary Care Physician [facility] 06-10-2025 12:05-0400 Body mass index (BMI) [Ratio] 29 kg/m2 No Primary Care Physician [facility] 06-10-2025 12:05-0400 Body weight 86.7 kg No Primary Care Physician [facility] 06-02-2025 10:00-0400 Diastolic blood pressure 78 mm[Hg] No Primary Care Physician [facility] 06-02-2025 10:00-0400 Heart rate 89 /min No Primary Care Physician [facility] 06-02-2025 10:00-0400 Respiratory rate 18 /min No Primary Care Physician [facility] 06-02-2025 10:00-0400 SaO2% (BldA) [Mass fraction] 98 % No Primary Care Physician [facility] 06-02-2025 10:00-0400 Systolic blood pressure 134 mm[Hg] No Primary Care Physician [facility] 06-02-2025 07:30-0400 Body mass index (BMI) [Ratio] 27.3 kg/m2 No Primary Care Physician [facility] 06-02-2025 07:30-0400 Body temperature 96.9 [degF] No Primary Care Physician [facility] 06-02-2025 07:30-0400 Body weight 81.64 kg No Primary Care Physician [facility] 03-22-2024 14:38-0400 [facility] height [facility].7 [facility] GUEST HISTORY CLERK.SISTER SUPERIOR Work Phone: [facility] 03-22-2024 14:38-0400 Body mass index (BMI) [Ratio] 34.86 kg/m2 Debby Aparna GUEST HISTORY CLERK.SISTER SUPERIOR Work Phone: [facility] 03-22-2024 14:38-0400 Body weight 104 kg Debby Aparna GUEST HISTORY CLERK.SISTER SUPERIOR Work Phone: [facility] 03-22-2024 14:38-0400 Diastolic blood pressure 86 mm[Hg] Debby Aparna GUEST HISTORY CLERK.SISTER SUPERIOR Work Phone: [facility] 03-22-2024 14:38-0400 Heart rate 57 /min Debby Aparna GUEST HISTORY CLERK.SISTER SUPERIOR Work Phone: [facility] 03-22-2024 14:38-0400 Respiratory rate 20 /min Debby Aparna GUEST HISTORY CLERK.SISTER SUPERIOR Work Phone: [facility] 03-22-2024 14:38-0400 SaO2% (BldA) [Mass fraction] 96 % Debby Braun GUEST HISTORY CLERK.SISTER SUPERIOR Work Phone: [facility] 03-22-2024 14:38-0400 Systolic blood pressure 124 mm[Hg] Debby Braun GUEST HISTORY CLERK.SISTER SUPERIOR Work Phone: [facility] 01-03-2024 13:35-0400 Body mass index (BMI) [Ratio] 34.59 kg/m2 Otilio Corona MD Work Phone: [facility] 01-03-2024 13:35-0400 Body temperature 97.59 [degF] Otilio Corona MD Work Phone: [facility] 01-03-2024 13:35-0400 Body weight 103.2 kg Otilio Corona MD Work Phone: [facility] 01-03-2024 13:35-0400 Diastolic blood pressure 80 mm[Hg] Otilio Corona MD Work Phone: [facility] 01-03-2024 13:35-0400 Heart rate 105 /min Otilio Corona MD Work Phone: [facility] 01-03-2024 13:35-0400 Respiratory rate 21 /min Otilio Corona MD Work Phone: [facility] 01-03-2024 13:35-0400 SaO2% (BldA) [Mass fraction] 98 % Otilio Corona MD Work Phone: [facility] 01-03-2024 13:35-0400 Systolic blood pressure 110 mm[Hg] Otilio Corona MD Work Phone: [facility] 09-28-2022 12:04-0500 Heart rate 92 /min [facility] 09-28-2022 12:04-0500 Respiratory rate 17 /min [facility] 09-28-2022 12:04-0500 SaO2% (BldA) [Mass fraction] 100 % [facility] 09-28-2022 10:04-0500 Body height 172.72 cm [facility] 01-18-2023 10:04-0500 Body mass index (BMI) [Ratio] 24.3 kg/m2 [facility] 09-28-2022 10:04-0500 Body temperature 97.9 [degF] [facility] 09-28-2022 10:04-0500 Body weight 72.57 kg [facility] 09-28-2022 10:04-0500 Diastolic blood pressure 80 mm[Hg] [facility] 09-28-2022 10:04-0500 Systolic blood pressure 130 mm[Hg] [facility] 07-11-2022 10:30-0400 Body height 172.72 cm [facility] Work Phone: 07-11-2022 10:30-0400 Body mass index (BMI) [Ratio] 22.8 kg/m2 [facility] 07-11-2022 10:30-0400 Body temperature 98.1 [degF] [facility] 07-11-2022 10:30-0400 Body weight 68.03 kg [facility] 07-11-2022 10:30-0400 Diastolic blood pressure 103 mm[Hg] [facility] 07-11-2022 10:30-0400 Heart rate 105 /min [facility] 07-11-2022 10:30-0400 Respiratory rate 16 /min [facility] 07-11-2022 10:30-0400 SaO2% (BldA) [Mass fraction] 99 % [facility] 07-11-2022 10:30-0400 Systolic blood pressure 156 mm[Hg] [facility] 06-08-2022 19:58-0400 Body temperature 98.9 [degF] [facility] 06-08-2022 19:58-0400 Diastolic blood pressure 78 mm[Hg] [facility] 06-08-2022 19:58-0400 Heart rate 67 /min [facility] 06-08-2022 19:58-0400 Respiratory rate 18 /min [facility] 06-08-2022 19:58-0400 SaO2% (BldA) [Mass fraction] 99 % [facility] 06-08-2022 19:58-0400 Systolic blood pressure 124 mm[Hg] [facility] 06-08-2022 16:52-0400 Body height 172.72 cm [facility] Work Phone: 06-08-2022 16:52-0400 Body mass index (BMI) [Ratio] 27.7 kg/m2 [facility] 06-08-2022 16:52-0400 Body weight 82.8 kg [facility] 06-06-2022 12:11-0400 Body mass index (BMI) [Ratio] 26.6 kg/m2 [facility] 06-06-2022 12:11-0400 Body temperature 97.8 [degF] [facility] 06-06-2022 12:11-0400 Body weight 79.5 kg [facility] 06-06-2022 12:11-0400 Diastolic blood pressure 94 mm[Hg] [facility] 06-06-2022 12:11-0400 Heart rate 89 /min [facility] 06-06-2022 12:11-0400 Respiratory rate 16 /min [facility] 06-06-2022 12:11-0400 SaO2% (BldA) [Mass fraction] 100 % [facility] 06-06-2022 12:11-0400 Systolic blood pressure 136 mm[Hg] [facility] 04-03-2022 18:43-0400 Body height 172.72 cm [facility] Work Phone: 04-03-2022 18:43-0400 Body mass index (BMI) [Ratio] 26.3 kg/m2 [facility] Work Phone: 04-03-2022 18:43-0400 Body temperature 97.5 [degF] [facility] Work Phone: 04-03-2022 18:43-0400 Body weight 78.5 kg [facility] Work Phone: 04-03-2022 18:43-0400 Diastolic blood pressure 84 mm[Hg] [facility] Work Phone: 07-24-2022 18:43-0400 Heart rate 120 /min [facility] Work Phone: 04-03-2022 18:43-0400 Respiratory rate 18 /min [facility] Work Phone: 04-03-2022 18:43-0400 SaO2% (BldA) [Mass fraction] 97 % [facility] Work Phone: 04-03-2022 18:43-0400 Systolic blood pressure 116 mm[Hg] [facility] Work Phone: Encounters Encounter Date Encounter Type Care Provider Facility Start: 06-10-2025 End: 06-10-2025 Emergency department patient visit No Primary Care Physician -Emergency Department Work Phone: Start: 06-02-2025 End: 06-02-2025 Emergency department patient visit Dr. Rodger Cruz DO -Emergency Department Work Phone: Start: 08-10-2024 End: 08-10-2024 Emergency department patient visit No Primary Care Physician Facility:[facility] Start: 04-14-2024 ambulatory Debby Braun GUEST HISTORY CLERK.SISTER SUPERIOR Work Phone: Family Medicine Comment on above: [facility] Start: 04-12-2024 Telephone encounter Debby malave GUEST HISTORY CLERK.SISTER SUPERIOR Work Phone: Family Medicine Comment on above: Appointment Start: 03-22-2024 End: 03-22-2024 ambulatory TRINIDAD SAAVEDRA Facility:[facility] Start: 03-22-2024 End: 03-22-2024 Patient encounter procedure Debby Braun GUEST HISTORY CLERK.SISTER SUPERIOR Work Phone: Family Medicine Comment on above: ANN (generalized anx iety disorder) (Primary Dx); Headache, unspecified headache type; Encounter to establish care; Screening for prostate cancer; Screening for diabetes mellitus; Screening for colon cancer; Special screening examination for viral disease; Screening for HIV (human immunodeficiency virus) Start: 01-03-2024 End: 01-03-2024 ambulatory TRINIDAD SAAVEDRA Facility:[facility] Start: 01-03-2024 End: 01-03-2024 Patient encounter procedure Otilio Corona MD Work Phone: [facility] Comment on above: Sore throat (Primary Dx); Right-sided chest pain; SOB (shortness of breath); Palpitations Start: 09-28-2022 End: 09-28-2022 [facility] Start: 07-11-2022 End: 07-11-2022 [facility] Start: 06-08-2022 End: 06-08-2022 [facility] Start: 06-06-2022 End: 06-06-2022 [facility] Start: 04-03-2022 End: 04-03-2022 [facility] Start: 08-07-2019 End: 08-08-2019 ambulatory ISIDRO SON Facility:[facility] Start: 11-01-2017 End: 11-01-2017 Patient encounter procedure Wendy Strauss GUEST HISTORY CLERK-SISTER SUPERIOR Work Phone: [facility] Pre Surgical Evaluation Comment on above: Pre-op evaluation (P rimary Dx) Start: 11-01-2017 End: 11-01-2017 Preprocedural examination done Wendy Strauss GUEST HISTORY CLERK-SISTER SUPERIOR Work Phone: [facility] Work Phone: Start: 05-30-2017 Ambulatory PEDRO LOYA Facility :B Procedures Date Procedure Procedure Detail Performing Clinician Start: 06-10-2025 Urnls dip stick/tabl et reagent auto microscopy No Primary Care Physician Start: 06-10-2025 CT of abdomen and pe lvis without contrast No Primary Care Physician Start: 06-02-2025 Urine culture No Primar y Care Physician Start: 06-02-2025 Urnls dip stick/tabl et reagent auto microscopy No Primary Care Physician Start: 06-02-2025 CT of abdomen and pe lvis without contrast No Primary Care Physician Start: 06-02-2025 Estimated creatinine clearance No Primary Care Physician Start: 01-03-2024 STREP A MOLECULAR (POC) Otilio Corona MD Work Phone: Start: 09-28-2022 CT of abdomen and pe lvis without contrast Start: 06-08-2022 CT of abdomen and pe lvis without contrast Start: 06-06-2022 CT of abdomen and pe lvis without contrast Start: 07-03-2019 Lipid 1996 panel - S sigrid or Plasma Otilio Corona MD Work Phone: Investigation of transfusion reaction Microbial culture, routine SARS-CoV-2 & FLU Ant igen (Rapid) SARS-CoV-2 & FLU Ant igen (Rapid) Plan of Treatment Date Care Activity Detail Author Start: 06-04-2029 Urine microalbumin profile DTaP,Tdap,Td Vaccine (3 - Td or Tdap) [facility] Start: 2027 Screening for malign ant neoplasm of colon [facility] Start: 03-22-2027 Diabetes Screening Diabetes Screenin g [facility] Start: 2026 Shingles (RZV) Vacci ne (1 of 2) Shingles (RZV) Vaccine (1 of 2) [facility] Start: 06-10-2025 [facility] Start: 06-10-2025 CT of abdomen and pelvis without contrast Abdomen/Pelvis without Cont [facility] Start: 06-10-2025 End: 06-10-2025 Emergency department patient visit Departed Emergency -Emergency Department Work Phone: Start: 06-02-2025 [facility] Start: 07-16-2024 End: 07-16-2024 Patient encounter procedure 07/16/2024 9:50 AM EST Office Visit Family Medicine [address] [place] [address] [place] [address] Neftali Cullen, DO [address] [place] [address] establishing care visit Family Medicine Comment on above: establishing care vi sit Start: 07-03-2024 Lipid panel [facility] Start: 05-12-2024 Influenza vaccination [facility] Start: 04-26-2024 End: 04-26-2024 Patient encounter procedure 04/26/2024 11:00 AM EDT Office Visit Family Medicine [address] [place] [address] [place] [address] Debby Braun APRN.[facility] [address] [place], [place] [id number] increasing med dosage Family Medicine Comment on above: increasing med dosag e Start: 2024 End: 2024 Patient encounter procedure 2024 2:50 PM EDT Office Visit Family Medicine [address] [place] [address] [place] [address] Neftali Cullen, DO [address] [place] [address] Establish Care Family Medicine Comment on above: Establish Care Start: 09-11-2023 Behavioral Health Screening Behavioral Health Screening [facility] Start: 06-11-2023 Influenza vaccination Influenza Vacc ine (#1) [facility] Start: 05-12-2023 Covid-19 Vaccine ( season) Covid-19 Vaccine ( season) [facility] Start: 07-03-2022 Diabetes Screening Diabetes Screenin g [facility] Start: 04-03-2022 [facility] Work Phone: Start: 2021 Screening for malign ant neoplasm of colon [facility] Start: 11-08-2018 Pneumococcal vaccination Pneumococcal Vaccine (2 of 2 - PCV) [facility] Start: 04-11-2017 Urine microalbumin profile DTaP,Tdap,Td Vaccine (2 - Tdap) [facility] Start: 1995 Hepatitis B Vaccine (1 of 3 - 19+ 3-dose series) Hepatitis B Vaccine (1 of 3 - 19+ 3-dose series) [facility] Start: 1994 Anxiety Screening Anxiety Screening [facility] Start: 1994 Depression Screening Depression Scre ening [facility] Start: 1994 [facility] Start: 1994 HIV screening HIV Screening [facility] Start: 1994 Tetanus + diphtheria + acellular pertussis vaccine (product) Tdap Booster [facility] Start: 1991 HIV screening HIV Test [facility] Start: 1976 COVID-19 Vaccine (#1) COVID-19 Vacci ne (#1) [facility] Start: 1976 Screening for malign ant neoplasm of colon Colonoscopy [facility] CBC W Auto Different ial panel - Blood COMPLETE BLOOD COUNT AND DIFFERENTIAL Lab Routine ANN (generalized anxiety disorder) Ordered: 03/22/2024 [facility] Work Phone: Comment on above: Ordered: 03/22/2024 COLOGUARD COLOGUARD Lab Ro utine Screening for colon cancer Ordered: 03/22/2024 [facility] Comment on above: Ordered: 03/22/2024 Comprehensive metabo lic 2000 panel - Serum or Plasma COMPREHENSIVE METABOLIC PANEL Lab Routine ANN (generalized anxiety disorder) Ordered: 03/22/2024 [facility] Comment on above: Ordered: 03/22/2024 Hemoglobin A1c in Blood HEMOGLOB IN A1C Lab Routine Screening for diabetes mellitus Ordered: 03/22/2024 [facility] Comment on above: Ordered: 03/22/2024 Hepatitis C virus Ab [Presence] in Serum HEPATITIS C ANTIBODY IA WITH CONFIRMATION Lab Routine Special screening examination for viral disease Ordered: 03/22/2024 [facility] Comment on above: Ordered: 03/22/2024 HIV 1+2 Ab [Presence ] in Serum or Plasma by Immunoassay HIV 1/2 COMBO WITH REFLEX TO DIFFERENTIATION Lab Routine Screening for HIV (human immunodeficiency virus) Ordered: 03/22/2024 [facility] Comment on above: Ordered: 03/22/2024 Microscopic observat ion [Identifier] in Unspecified specimen by Gram stain Gram Stain [facility] Work Phone: Patient Education [facility] Work Phone: Patient referral [facility] Work Phone: PSA/PROSTATE SPECIFI C ANTIGEN SCREENING PSA/PROSTATE SPECIFIC ANTIGEN SCREENING Lab Routine Screening for prostate cancer Ordered: 03/22/2024 [facility] Comment on above: Ordered: 03/22/2024 Wound Culture Wound Culture [facility] Work Phone: [facility] Work Phone: Immunizations Immunization Date Immunization Notes Care Provider Howard baxter 06-04-2019 tetanus toxoid, redu andrew diphtheria toxoid, and acellular pertussis vaccine, adsorbed [facility] 03-05-2019 hepatitis A vaccine, adult dosage Debby Braun GUEST HISTORY CLERK.SISTER SUPERIOR Work Phone: [facility] 11-08-2017 influenza, injectabl e, quadrivalent, preservative free Debby Braun GUEST HISTORY CLERK.SISTER SUPERIOR Work Phone: [facility] 11-08-2017 pneumococcal polysaccharide vaccine, 23 valent Debby Braun GUEST HISTORY CLERK.SISTER SUPERIOR Work Phone: [facility] 11-08-2017 influenza virus vacc ine, unspecified formulation Wendy Strauss GUEST HISTORY CLERK-SISTER SUPERIOR Work Phone: [facility] 08-31-2014 influenza, seasonal, injectable Wendy Strauss GUEST HISTORY CLERK-SISTER SUPERIOR Work Phone: [facility] 04-11-2007 diphtheria and tetan us toxoids, adsorbed for pediatric use Wendy Strauss GUEST HISTORY CLERK-SISTER SUPERIOR Work Phone: [facility] Payers Date Payer Category Payer Private Health Insurance HUMANA HUMANA MEDICAID [facility] [id number] 2023-Present [address] [address] [place] [address] Medicaid [id number] 2023 Medicaid [id number] 2017 Self-pay 2016 Medicaid [id number] 2016 Medicaid DO NOT USE [place] MEDICAID DO NOT USE [employer] [id number] 2016-2022 [address] [place] [address] Medicaid HMO [id number] 1976 Unknown [id number] Self-pay SELF PAY INSURANCE [id number] Unknown [id number] Unknown [id number] Unknown [id number] Unknown [id number] Social History Date Type Detail Facility Start: 04-03-2022 End: 09-28-2022 Tobacco smoking status ALIS Unknown if ever smoked [facility] Start: 06-04-2019 Cigarettes [facility] Start: 1975 Sex Assigned At Male W [facility] Start: 05-26-2017 Tobacco smoking stat us [facility] Occasional tobacco smoker [facility] Work Phone: History of tobacco use [facility] Start: 05-26-2017 End: 02-26-2024 Cigarettes smoked current (pack per day) - Reported 0.3 [facility] Start: 05-26-2017 End: 01-03-2024 Tobacco use and exposure Smokeless tobacco non-user [facility] Start: 09-29-2017 Alcohol intake Current non-dr label pinker of alcohol (finding) [facility] Start: 1975 Sex Assigned At Not on file [facility] Start: 01-03-2024 End: 02-26-2024 Gender identity Not on file [facility] Start: 01-03-2024 End: 06-10-2025 Tobacco smoking status NHIS Smokes tobacco daily [facility] Start: 01-03-2024 End: 03-22-2024 Alcohol intake Current drinker of alcohol (finding) [facility] Start: 01-03-2024 Tobacco Comment smoking vapor cigarettes [facility] Start: 05-25-2007 Alcohol Comment Drank heavily in past. has stopped now. [facility] National Score (1-10 0), lower number is lower risk 92 [facility] Medical Equipment Procedure Code Equipment Code Equipment Origin al Text Equipment Identifier Dates Allograft Bone C hips 30cc [id number] - [id number] Start: 11-06-2017 Putty 5cc Dbm Xemplifi 8103.0005s - [id number] Start: 11-24-2016 Putty 10cc Dbm E a1 8103.0010s - [id number] Start: 11-06-2017 Quartex Jose [id number] Start: 11-06-2017 Plate 30mm Cervi michael 2 Level Anterior Xtend 161.230 - [id number] Start: 11-24-2016 Screw 4.2 X 16mm Variable Angleself Drilling Xtend 161.016 - [id number] Start: 11-24-2016 Screw Polyaxial 4.0x14mm Ea1 1149.4014 - [id number] Start: 11-06-2017 Graft Spacer Cer v [id number] Allograft Human Tissue St 865.407s - [id number] Start: 11-24-2016 Mental Status Date Assessment Result Facility 09-28-2022 Cognitive function Level Of Cons ciousness Awake;Alert;Appropriate;Follow s Commands [facility] Work Phone: 07-11-2022 Cognitive function Level Of Cons ciousness Awake;Alert;Appropriate;Follow s Commands [facility] Work Phone: 06-08-2022 Cognitive function Level Of Cons ciousness Awake;Alert;Appropriate;Follow s Commands [facility] Work Phone: 06-06-2022 Cognitive function Level Of Cons ciousness Awake;Alert;Appropriate;Follow s Commands [facility] Work Phone: Clinical Notes 01-03-2024 to 06-10-2025 Note Date & Type Note Facility 06-10-2025 Discharge summary [facility] 06-10-2025 Radiology Diagnostic study note [facility] [address] [place] [address] Abdomen/Pelvis without Cont MR#: [id number] Acct: [id number] Name: SIDDHARTH KEYES Rep #: [id number] : 1975 M 50 From: Deisi Vazquez MD PCP: Care Physician,No Primary Status: REG ER Study:Abdomen/Pelvis without Cont Date of Exa m: 06/10/25 Exam# [id number] Ordering Dr: Jason Covarrubias MD PROCEDURE: ABDOMEN/PELVIS WITHOUT CONT 06/10/2025 REASON FOR EXAM: PAIN TECHNIQUE: Procedure Code: CTABDPEL Modality: CT Procedure: ABDOMEN/PELVIS WITHOUT CONT Noncontrast technique limits evaluation of the abdominal and pelvic viscera. Coronal and Sagittal reconstruction series were provided. One or more dose reduction techniques were used (e.g., Automated exposure control, adjustment of the mA and/or kV according to patient size, use of iterative reconstruction technique). RADIATION DOSE SUMMARY: DLP: 456 mGycm COMPARISON: 06/02/2025 FINDINGS: Limited sections of the lung bases demonstrate no focal pulmonary mass or consolidations. The liver, spleen, pancreas, and both adrenal glands demonstrate no acute findings. The gallbladder is contracted The stomach is unremarkable. The small bowel loops are not dilated. The appendix is not clearly identified, although there are no secondary signs ofappendicitis. No colonic obstruction. Colonic diverticulosis without acute diverticulitis. There is no free air or significant free fluid. 5 mm obstructive stone at the distal right ureter with associated mild hydroureteronephrosis. Scattered nonobstructive stones within the bilateral kidneys. No hydronephrosis of the left collecting system. Moderately thickened urinary bladder wall which may reflect cystitis vs nondistention; consider correlation with urinalysis. The pelvic structures are intact. There is no solid pelvic mass. No significant lymphadenopathy. The aorta and IVC demonstrate no acute findings. Minimal atherosclerosis of theabdominal vasculature. Visualized osseous structures demonstrate no acute abnormality. CT/Abdomen/Pelvis without Cont IMPRESSION: 5 mm obstructive stone at the distal right ureter with associated mild hydroureteronephrosis. Moderately thickened urinary bladder wall which may reflect cystitis vs nondistention; consider correlation with urinalysis. Reading Location: [facility] CC: Dr. George Covarrubias MD; No Primary Care Physician ~ Mid Level Game Designer: Signed [facility] 06-10-2025 Discharge summary Note Date/Time June 10, 2025 3:11pm [facility] Medical Records Department [address] [place] [address] Emergency Department Summary 06/10/25 MR#: [id number] Acct: [id number] Name: SIDDHARTH KEYES Rep #:[id number] : 1975 50 From: George Covarrubias MD PCP: Care Physician,No Primary Status :REG ER Location: ED HPI History of Present Illness Chief Complaint: Flank Pain Informant: patient Pain Onset: Today Context: Gradual Onset Timing: Continuous Current Severity: Mild Maximum Severity: Mild Narrative Narrative: 50-year-old male history of kidney stones that has had about 9 before. Has never needed surgery. Has had a prior appendectomy. Patient states that he wasseen here about a week and a half ago diagnosed with a 5 mm kidney stone. Was placed on Flomax, pain medication and antibiotics. He is finished those. Said this morning he got right flank and lower quadrant pain. Previously was feelingbetter. He thinks he has another stone. He denies any vomiting. No diarrhea. No fever. No dysuria. Prior similar symptoms: Yes Recent Illness/Hospitalization: No [facility] Medical History History of kidney stones Home Medications ?Medication ?Instructions ?Recorded ?Last Taken ?Type ibuprofen 200 mg tablet (Advil) 400 mg PO Q4H PRN feve r or pain 06/02/25 06/02/25 History levofloxacin 750 mg tablet 750 mg PO DAILY 7 days #7 t abs 06/02/25 Unknown Rx ondansetron 4 mg disintegrating 4 mg PO Q8H PRN PRN Na usea #10 tabs 06/02/25 Unknown Rx tablet oxycodone-acetaminophen 5 mg-325 1 tab PO Q6H PRN pain 3 days #12 06/02/25 Unknown Rx mg tablet (Percocet) tabs tamsulosin 0.4 mg capsule (Flomax) 0.4 mg PO DAILY 14 days #14 caps 06/02/25 Unknown Rx oxycodone-acetaminophen 7.5 mg-325 1 tab PO Q8H PRN pa in 3 days #12 06/10/25 Unknown Rx mg tablet (Percocet) tabs Allergy/AdvReac Type Severity Reaction Status Date / Time bismuth subsalicylate (From Allergy HEAT RASH Verified 06/10/25 12:05 Pepto-Bismol) latex Allergy Rash Verified 06/10/25 12:05 Penicillins Allergy HEAT RASH Verified 06/10/25 12:05 Surgical History Hx of neck surgery Social History Smoking Status: Current every day smoker tobacco type: cigarettes ROS ROS ED ROS Narrative Right flank pain. Constitutional Constitutional ED: Denies chills or fever(s) Eyes Eyes: Denies blurry vision ENT ENT ED: Denies ear pain Cardiovascular Cardiovascular: Denies chest pain Respiratory/Chest Respiratory/Chest: Denies cough or dyspnea Gastrointestinal Gastrointestinal: Reports abdominal pain; Denies constipation, diarrhea, melena,nausea or vomiting Genitourinary Genitourinary ED: Denies dysuria or hematuria Musculoskeletal Musculoskeletal: Denies arthralgias or back pain Integumentary Denies abscess Neurologic Neurologic: Denies headache(s) Psychiatric Psychiatric: Denies anxiety Endocrine Endocrinology: Denies polydipsia Hematologic/Lymphatic Hematologic/Lymphatic: Denies easy bleeding, easy bruising or lymphadenopathy Allergic/Immunologic Allergic/Immunologic ED: Denies mouth swelling, tongue swelling or urticaria EXAM Physical Exam Narrative Exam Narrative: Well-appearing middle-aged male. Vital signs stable afebrile. No distress. H EENT exam pupils round react light. Moist mucous members. Neck nontender JVD. Lungs clear to auscultation bilateral. Heart regular rhythm no murmur. Chest wall ribs nontender. Abdomen soft, nontender nondistended, normal bowel sounds without peritoneal signs. Moving all 4 extremities. Back nontender. Neurologically he is awake alert. Answer questions following commands. Patientappears very comfortable. No distress. Const Vital Signs: 06/10/25 12:05 06/10/25 14:05 Temperature 98 F Temperature Source Temporal Pulse Rate 103 H 90 Respiratory Rate 14 17 Blood Pressure 113/87 H 115/77 Blood Pressure Mean 95 89 Pulse Ox 98 97 Oxygen Delivery Method Room Air Room Air Positive well nourished and well developed; Negative for cachectic, contracturesor unkempt General Appearance ED: well developed and NAD; Negative for unkempt, cachectic, contractures or pallor Nutritional Appearance: Negative for cachectic HEENT Reports moist mucous membranes normocephalic and atraumatic Eyes PERRL and EOMs intact bilaterally Neck no lymphadenopathy, supple and no JVD Resp normal respiratory effort and clear to auscultation bilaterally Cardio regular rate, regular rhythm, S1 normal heart sound, S2 normal heart sound and no murmurs GI non-tender, non-distended and no masses Auscultation: normoactive bowel sounds Palpation: soft; Negative for tender or guarding no CVA tenderness Bladder / Kidney Exam: No CVA tenderness Groin / Perineum Exam: Negative for edema or lesions Back/Spine no CVA tenderness General Back: Negative for CVA tenderness Cervical Spine: Negative for cervical spine tenderness Thoracic Spine / Upper Back: Negative for thoracic spinal tenderness Lumbar Spine / Lower Back: Negative for lumbar spinal tenderness Extremity normal to inspection General Extremety ED: Negative for edema, pulses abnormal or tenderness General Extremity: Negative for edema or pulses abnormal Neuro oriented x3, CN's II-XII intact bilaterally, moves all extremities and no focal motor deficits Sensorium / Orientation: alert, oriented to person, oriented to place and oriented to time; Negative for orientation impaired Motor Exam: strength 5/5 throughout Psych mental status grossly normal Appearance: Negative for unkempt Skin General Skin Exam: Negative for jaundice or pallor Lesions: no lesions Rashes: no rashes MDM MDM MDM Narrative Medical decision making narrative: 50-year-old male well-known to this emergency department. Flank pain. Prior appendectomy. History of kidney stones. CAT scan will be obtained. UA. IV Toradol. I reviewed his recent labs and recent CAT scan. The patient is doing well. He will be given Dilaudid for pain. His CAT scan did reveal the same kidney stone of 5 mm in the right distal ureter with hydroureter and hydronephrosis. Urine is clean. Patient be discharged to home. He already has Flomax at home. Limited Percocet for pain. Outpatient follow-up for. He is comfortable with the plan. History & Record Review Discussion w/independent historian: Patient Additional record(s) reviewed:: Prior inpatient record, Prior outpatient record,Prior ED visit and Prior labs Lab Data Attestation: I reviewed the patient's lab results. Lab results narrative: UA normal. 150 occult blood. No nitrates. No white or red cells. No bacteria. CAT scan consistent with a distal right ureteral 5 mm renal calculi with hydronephrosis and hydroureter. Labs: Laboratory Results - last 24 hr 06/10/25 14:06 Urine Color Yellow Urine Clarity Clear Urine pH 6.5 Ur Specific Filer 1.030 Urine Protein 15 H Urine Glucose (UA) Normal Urine Ketones Negative Urine Occult Blood 150 H Urine Nitrite Negative Urine Bilirubin Negative Urine Urobilinogen Normal Ur Leukocyte Esterase Negative Urine RBC 0-5 SEEN Urine WBC 0 SEEN Ur Squamous Epith Cells 0 SEEN Urine Bacteria 0 SEEN Urine Mucus 0 SEEN Radiography Diagnostic Testing: Clinical Impression(s) from Imaging Studies Abdomen/Pelvis CT 06/10/25 13:52 IMPRESSION: 5 mm obstructive stone at the distal right ureter with associated mild hydroureteronephrosis. Moderately thickened urinary bladder wall which may reflect cystitis vs nondistention; consider correlation with urinalysis. Reading Location: [facility] Discharge Plan Triage Chief Complaint: Flank Pain ED Provider: George Covarrubias Dx/Rx/DC Orders Clinical Impression: Kidney stone on right side Instructions: ED Kidney Stone with Pain Prescriptions: New oxycodone-acetaminophen [Percocet] 7.5-325 mg tablet 1 tab PO Q8H PRN (Reason: pain) 3 Days Qty: 12 0RF No Action ibuprofen [Advil] 200 mg tablet 400 mg PO Q4H PRN (Reason: fever or pain) levofloxacin 750 mg tablet 750 mg PO DAILY 7 Days Qty: 7 0RF oxycodone-acetaminophen [Percocet] 5-325 mg tablet 1 tab PO Q6H PRN (Reason: pain) 3 Days Qty: 12 0RF tamsulosin [Flomax] 0.4 mg capsule 0.4 mg PO DAILY 14 Days Qty: 14 0RF ondansetron 4 mg tablet,disintegrating 4 mg PO Q8H PRN PRN (Reason: Nausea) Qty: 10 0RF Primary Care Provider: Care Physician,No Primary Referrals: Tonny Henson MD [Med Staff - Active Staff, Urology] - As soon as possible Care Physician,No Primary [Primary Care Provider, Medical] Activity Restrictions/Additional Instructions: Plenty of fluids Percocet for severe pain. Also use Motrin or ibuprofen. Flomax daily. Follow-up with the urologist if not getting better. Watch your urine to see if you passed a stone. Return if worsening pain or fever. Print Language: [place] Citizen Disposition Disposition: Home, Self Care What to do if you have Problems For any increased pain, shortness of breath, bleeding, nausea or vomiting, chestpain, or any unexpected problems, contact your Primary Care Provider. Call [facility] ([phone]) or report to the closest Emergency Room. Call 911 if necessary. 06/10/25 1511 <Electronically signed by George Covarrubias MD> Cosigner Signature (if applicable): CC: No Primary Care Physician ~ Signed [facility] Work Phone: [phone]) 528-354809-22-2025 Discharge summary [facility] Medical Records Department [address] [place] [address] Emergency Department Summary 06/02/25 MR#: [id number] Acct: [id number] Name: SIDDHARTH KEYES Rep #:[id number] : 1975 50 From: Rodger edwards DO PCP: Care Physician,No Primary Status :DEP ER Location: ED HPI History of Present Illness Chief Complaint: Flank Pain Narrative Narrative: Chief complaint and HPI: 50-year-old male with past medical history of urolithiasis presents for evaluation of right flank pain. Patient states he haspassed multiple kidney stones throughout his life. He has not followed with a urologist. Onset of right flank pain yesterday evening. Intermittent. Feels like his previous urolithiasis. Nausea only with pain. He denies any fever, chills, shortness of breath, chest pain, diarrhea, constipation, dysuria. Deniesany penile or testicular pain swelling,discharge. Review of systems: See HPI Medications: As listed on the chart Allergies: As listed on the chart PFSH: Per chart Vital signs: As listed on the chart. Reviewed. Physical exam: Gen: A&O x3, NAD Head: Normocephalic, atraumatic Eyes: No sclera icterus, conjunctiva clear ENT: Moist mucous membranes CV: RRR, no murmurs Resp: Lungs CTA BL, no w/r/c GI: Abd soft, non-distended, nontender, no r/r/g : No CVA tenderness Musc: Full ROM, no deformity Skin: Warm, dry Neuro: Alert, oriented, grossly intact, sensation intact Psych: Cooperative, appropriate mood and affect PFSH [facility] Medical History History of kidney stones Home Medications ?Medication ?Instructions ?Recorded ?Last Taken ?Type ibuprofen 200 mg tablet (Advil) 400 mg PO Q4H PRN feve r or pain 06/02/25 06/02/25 History levofloxacin 750 mg tablet 750 mg PO DAILY 7 days #7 t abs 06/02/25 Unknown Rx ondansetron 4 mg disintegrating 4 mg PO Q8H PRN PRN Na usea #10 tabs 06/02/25 Unknown Rx tablet oxycodone-acetaminophen 5 mg-325 1 tab PO Q6H PRN pain 3 days #12 06/02/25 Unknown Rx mg tablet (Percocet) tabs tamsulosin 0.4 mg capsule (Flomax) 0.4 mg PO DAILY 14 days #14 caps 06/02/25 Unknown Rx Allergy/AdvReac Type Severity Reaction Status Date / Time bismuth subsalicylate (From Allergy HEAT RASH Verified 06/02/25 07:31 Pepto-Bismol) latex Allergy Rash Verified 06/02/25 07:31 Penicillins Allergy HEAT RASH Verified 06/02/25 07:31 Surgical History Hx of neck surgery Social History Smoking Status: Current every day smoker tobacco type: cigarettes EXAM Physical Exam Const Vital Signs: 06/02/25 07:30 06/02/25 10:00 Temperature 96.9 F L Temperature Source Temporal Pulse Rate 78 89 Respiratory Rate 19 H 18 Blood Pressure 139/83 H 134/78 H Blood Pressure Mean 101 96 Pulse Ox 100 98 Oxygen Delivery Method Room Air Room Air MDM MDM MDM Narrative Medical decision making narrative: 50-year-old male with past medical history of urolithiasis presents for evaluation of right flank pain. Patient states he has passed multiple kidney stones throughout his life. He has not followed with a urologist. Onset of right flank pain yesterday evening. Intermittent. Feels like his previous ur olithiasis. Differential diagnosis includes but is not limited to urolithiasis, nephrolithiasis, UTI, electrolyte abnormality, gastroenteritis. NS bolus, Zofran, Toradol ordered for symptoms. Laboratory workup ordered including CT abdomen pelvis without contrast. CBC without leukocytosis or anemia.BMP unremarkable without NILAM. UA positive for UTI. Urine culture sent. CT abdomen pelvis shows bilateral nephrolithiasis. Mild right hydronephrosis secondary to 0.5 cm stone in the proximal right ureter. I personally spoke with the radiologist about the read as he contacted me. On reevaluation, patient still having pain, morphine ordered. Pain improved with morphine. Patient is comfortable discharging home however given that this is a proximal stone that is 5 mm with UTI, will consult urology. Patient had a prolonged stay in our emergency department secondary to awaiting callback from urology. I do not have urology available in our hospital therefore I had to consult out to [facility]. Patient was discussed with the urologist, hiwot to follow-up outpatient. Agrees with antibiotics, pain medicine, Zofran, Flomax. Patient will be placed on a week of Levaquin. First dose given here. Return precautions explained. Follow-up with urology. He confirmed understand the plan. Patient able todischarge home. Patient did leave the emergency department prior to his discharge being written. I did personally contact him over the telephone. He states that he is upstairs as his mother is getting testing performed. He will come back down to obtain his paperwork. He is awarethat his prescriptions were sent. Impression: 1. Right proximal urolithiasis with mild hydronephrosis 2. History of urolithiasis 3. UTI Lab Data Labs: Laboratory Results - last 24 hr 06/02/25 06/02/25 08:09 08:39 WBC 10.3 RBC 4.36 L Hgb 14.2 Hct 41.0 MCV 94.0 MCH 32.6 H MCHC 34.6 RDW Std Deviation 45.1 H RDW Coeff of Darvin 13.1 Plt Count 271 MPV 8.9 Immature Gran % (Auto) 0.200 Neut % (Auto) 70.6 H Lymph % (Auto) 20.5 [place] % (Auto) 7.1 Eos % (Auto) 1.3 Baso % (Auto) 0.3 Absolute Neuts (auto) 7.3 Absolute Lymphs (auto) 2.12 Nucleated RBC % 0 Sodium 140 Potassium 4.5 Chloride 105 Carbon Dioxide 25.9 Anion Gap 9 BUN 19 Creatinine 1.10 Estim Creat Clear Calc 78.59 Est GFR (MDRD) Non-Af 82 BUN/Creatinine Ratio 17.0 Glucose 102 H Calcium 9.2 Urine Color Yellow Urine Clarity Sl. Cloudy Urine pH 6.5 Ur Specific Filer 1.015 Urine Protein 30 H Urine Glucose (UA) Normal Urine Ketones Negative Urine Occult Blood 250 H Urine Nitrite Negative Urine Bilirubin Negative Urine Urobilinogen Normal Ur Leukocyte Esterase 100 H Urine RBC 10-25 SEEN Urine WBC 5-10 SEEN Ur Squamous Epith Cells 0-5 SEEN Urine Bacteria 2+ Urine Mucus 2+ Radiography Diagnostic Testing: Clinical Impression(s) from Imaging Studies Abdomen/Pelvis CT 06/02/25 08:24 IMPRESSION: Bilateral nephrolithiasis. There is mild right hydronephrosis secondary to a 0.5 cm stone in the proximal right ureter, image 80/201. Critical results were discussed with Dr. Harris by Dr. Hawley at the time ofdictation. Reading [facility] Dis[facility] Triage Chief Complaint: Flank Pain ED Provider: Rodger Cruz Dx/Rx/DC Orders Clinical Impression: Urolithiasis Instructions: ED Kidney Stone with Pain Prescriptions: New levofloxacin 750 mg tablet 750 mg PO DAILY 7 Days Qty: 7 0RF oxycodone-acetaminophen [Percocet] 5-325 mg tablet 1 tab PO Q6H PRN (Reason: pain) 3 Days Qty: 12 0RF tamsulosin [Flomax] 0.4 mg capsule 0.4 mg PO DAILY 14 Days Qty: 14 0RF ondansetron 4 mg tablet,disintegrating 4 mg PO Q8H PRN PRN (Reason: Nausea) Qty: 10 0RF No Action ibuprofen [Advil] 200 mg tablet 400 mg PO Q4H PRN (Reason: fever or pain) Primary Care Provider: Care Physician,No Primary Referrals: Tonny Henson MD [Med Staff - Active Staff, Urology] - 3-5 Days Evens Durbin MD [Med Staff - Active Staff, Family Practice] - 3-5 Days Activity Restrictions/Additional Instructions: Return back to the ED if symptoms change or worsen. You need to follow-up with your urologist. Takeall of your antibiotic. Print Language: [place] Citizen Disposition Disposition: Home, Self Care Discharge Date/Time: 06/02/25 11:45 What to do if you have Problems For any increased pain, shortness of breath, bleeding, nausea or vomiting, chestpain, or any unexpected problems, contact your Primary Care Provider. Call [facility] ([phone]) or report tothe closest Emergency Room. Call 911 if necessary. 06/02/25 1540 Cosigner Signature (if applicable): CC: No Primary Care Physician ~ Signed [facility]09-22-2025 Radiology Diagnostic study note [facility] Imaging Services [address] [place] [address] Abdomen/Pelvis without Cont MR#: [id number] Acct: [id number] Name: SIDDHARTH KEYES Rep #: [id number] : 1975 M 50 From: Gretta Hawley MD PCP: Care Physician,No Primary Status: REG ER Study:Abdomen/Pelvis without Cont Date of Exa m: 06/02/25 Exam# [id number] Ordering Dr: Rodger Harris DO PROCEDURE: ABDOMEN/PELVIS WITHOUT CONT 06/02/2025 REASON FOR EXAM: RIGHT FLANK PAIN, HISTORY OF UROLITHIASIS TECHNIQUE: Procedure Code: CTABDPEL Modality: CT Procedure: ABDOMEN/PELVIS WITHOUT CONT Noncontrast technique limits evaluation of the abdominal and pelvic viscera. Coronal and Sagittal reconstruction series were provided. One or more dose reduction techniques were used (e.g., Automated exposure control, adjustment of the mA and/or kV according to patient size, use of iterative reconstruction technique). RADIATION DOSE SUMMARY: DLP: 518.3 mGycm COMPARISON: August 10, 2024 FINDINGS: Lung bases: Clear Liver: Unremarkable Gallbladder: Unremarkable Spleen: Unremarkable Pancreas: Unremarkable Adrenals: Unremarkable Kidneys: There are multiple right renal stones with the largest in the upper pole measuring 0.4 cm.There is mild right hydronephrosis secondary to a 0.5 cm stone in the proximal right ureter, image 80/201. The left kidney shows multiple stones with the largest measuring 0.3 cm in the lower pole. There is no ureteral stoneor hydronephrosis onthe left. Bladder: Unremarkable Reproductive Organs: Unremarkable Bowel: Gas and stool is noted in the colon with a moderate stool load. The small-bowel loops are nondistended. Appendix: Within normal limits Lymph nodes: There is no pathologic adenopathy by size criteria. Vasculature: Atherosclerotic calcifications are noted. Peritoneum / Retroperitoneum: There is no free air or free fluid. Bones: There is no acute bony abnormality. CT/Abdomen/Pelvis without Cont IMPRESSION: Bilateral nephrolithiasis. There is mild right hydronephrosis secondary to a 0.5 cm stone in the proximal right ureter, image 80/201. Critical results were discussed with Dr. Harris by Dr. Hawley at the time ofdictation. Reading Location: [facility] CC: Dr. Rodger Harris-[facility] ; No Primary Care Physician ~ Mid Level Game Designer: Signed [facility]08-06-2024 Telephone encounter Note* Telephone Encounter - Sandra Miner MA - 04/16/2024 11:51 AM EDT Please review and advise [facility]08-06-2024 Miscellaneous Notes* Telephone Encounter - Sandra Miner MA - 04/16/2024 11:51 AM EDT Please review and advise [facility]24 Telephone encounter Note * Telephone Encounter - Zee Kwan - 04/12/2024 1:17 PM EDT 1st attempt sent OpenLabel message, I did schedule him for Dr. Cullen's soonest available establishing care visit since he is booked until July. Zee Kwan [facility]08-02-2024 Miscellaneous Notes* Telephone Encounter - Zee Kwan - 04/12/2024 1:17 PM EDT 1st attempt sent [employer] message, I did schedule him for Dr. Cullen's soonest available establishing care visit since he is booked until July. Zee Kwan * Telephone Encounter - Debby Braun APRN.CNP - 04/12/2024 11:42 AM EDT Please call pt and advise him that he needs to est care with Dr. Cullen or Dr. Tan. Please schedule this. Can keep appt with me as well documented in [facility]-2024 Telephone encounter Note * Telephone Encounter - Debby Braun APRN.CNP - 04/12/2024 11:42 AM EDT Please call pt and advise him that he needs to est care with Dr. Cullen or Dr. Tan. Please schedule this. Can keep appt with me as well [facility]07-12-2024 NoteHNO ID: [id number] Author: DEBBY BRAUN APRN.CNP Service: ? Author Type: Nurse Practitioner Type: Progress Notes Filed: 03/22/2024 15:18 Note Text: This note was created using [employer]. Subjective Siddharth Keyes is a 48 year old male. Patient presents with: Consult: Discuss medications, headaches, anxiety to establish care Pt here to est care with multiple concerns States he has been having headaches but notices he's grinding his teeth a lot and clenching his jaw Notices some clicking in his jaw. States he also has anxiety and overwhelming feelings especially around people and filling out paperwork. Mainly anxiety, no depression Sleeps well Has lack of focus and agitation at times. Admits his sister is on Zoloft and does very well with this. Has tried therapy in the past. 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 Does not exercise Knows he needs to lose weight as he feels more knee discomfort. Diet: trying to eat better, cutting out sweets. Eating more fruits and peanuts. No soda or bread Drinks 5 arriola per day Eating 1 meal per day Taking magnesium, multivitamin and other supplements. The history is provided by the patient. No refrigerator repair technician was used. Review of Systems Constitutional: Negative for appetite change, chills, diaphoresis, fatigue and fever. HENT: Negative for tinnitus. Eyes: Negative for photophobia and visual disturbance. Respiratory: Negative for cough, chest tightness, shortness of breath and wheezing. Cardiovascular: Negative for chest pain, palpitations and leg swelling. Gastrointestinal: Negative. Genitourinary: Negative. Skin: Negative for rash. Neurological: Positive for headaches. Negative for dizziness, syncope, weakness, light-headedness and numbness. Psychiatric/Behavioral: Positive for agitation and decreased concentration. Negative for dysphoric mood, self-injury, sleep disturbance and suicidal ideas. The patient is nervous/anxious. All other systems reviewed and are negative. Objective BP 124/86 (BP Site: Left Arm, BP Position: Sitting) Pulse (!) 57 Resp 20 Ht 172.7 cm (5' 8) Wt 104 kg (229 lb 4.5 oz) SpO2 96% BMI 34.86 kg/m? PAST MEDICAL HISTORY Diagnosis Date DDD (degenerative disc disease) Mixed anxiety and depressive disorder PAST SURGICAL HISTORY Procedure Laterality Date APPENDECTOMY KNEE ARTHROSCOPY Bone fragment. PAST SURGICAL HISTORY OF lumbar and cervical pain injections. No current outpatient medications on file prior to visit. No current facility-administered medications on file prior to visit. ALLERGIES Allergen Reactions Penicillins Rash Latex Rash Rash on hands with latex gloves Pepto-Bismol [Bismu* Rash Wool Rash Physical Exam Vitals and nursing note reviewed. Constitutional: General: He is awake. He is not in acute distress. Appearance: Normal appearance. He is well-developed. He is obese. He is not ill-appearing. HENT: Head: Normocephalic. Jaw: No tenderness or swelling. Eyes: General: Lids are normal. Conjunctiva/sclera: Conjunctivae normal. Pupils: Pupils are equal, round, and reactive to light. Cardiovascular: Rate and Rhythm: Normal rate and regular rhythm. Pulses: Normal pulses. Heart sounds: Normal heart sounds. Pulmonary: Effort: Pulmonary effort is normal. No respiratory distress. Breath sounds: Normal breath sounds. No decreased breath sounds or wheezing. Musculoskeletal: General: No swelling. Normal range of motion. Right lower leg: No edema. Left lower leg: No edema. Skin: General: Skin is warm and dry. Capillary Refill: Capillary refill takes less than 2 seconds. Findings: No rash. Neurological: General: No focal deficit present. Mental Status: He is alert and oriented to person, place, and time. Mental status is at baseline. Cranial Nerves: No cranial nerve deficit. Sensory: Sensation is intact. No sensory deficit. Motor: Motor function is intact. No weakness. Coordination: Coordination is intact. Gait: Gait is intact. Gait normal. Psychiatric: Attention and Perception: Attention and perception normal. Mood and Affect: Affect normal. Mood is anxious. Speech: Speech is rapid and pressured. Behavior: Behavior is hyperactive. Behavior is cooperative. Thought Content: Thought content normal. Thought content does not include homicidal or suicidal ideation. Cognition and Memory: Cognition and memory normal. Judgment: Judgment normal. ASSESSMENT/PLAN: 1. ANN (generalized anxiety disorder) - ICD9: 300.02, ICD10: F41.1 (primary diagnosis) - follow up in 4-6 weeks to discuss medication - SERTRALINE 25 MG TABLET- discussed use and side effects - COMPLETE BLOOD COUNT AND DIFFERENTIAL - COMPREHENSIVE METABOLIC PANEL 2. Headache, unspecified headache type - ICD9: 784.0, ICD10: R51.9 - bite guard d/t possible TMJ 3 (more content not included)...[facility]07-12-2024 History of Present illness Narrative* Debby Braun APRN.SISTER SUPERIOR - 03/22/2024 2:37 PM EDT Images from the original note were not included. This note was created using [employer]. Subjective Siddharth Keyes is a 48 year old male. Patient presents with: Consult: Discuss medications, headaches, anxiety to establish care Pt here to est care with multiple concerns States he has been having headaches but notices he's grinding his teeth a lot and clenching his jaw Notices some clicking in his jaw. States he also has anxiety and overwhelming feelings especially around people and filling out paperwork. Mainly anxiety, no depression Sleeps well Has lack of focus and agitation at times. Admits his sister is on Zoloft and does very well with this. Has tried therapy in the past. 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 Does not exercise Knows he needs to lose weight as he feels more knee discomfort. Diet: trying to eat better, cutting out sweets. Eating more fruits and peanuts. No soda or bread Drinks 5 arriola per day Eating 1 meal per day Taking magnesium, multivitamin and other supplements. The history is provided by the patient. No refrigerator repair technician was used. Review of Systems Constitutional: Negative for appetite change, chills, diaphoresis, fatigue and fever. HENT: Negative for tinnitus. Eyes: Negative for photophobia and visual disturbance. Respiratory: Negative for cough, chest tightness, shortness of breath and wheezing. Cardiovascular: Negative for chest pain, palpitations and leg swelling. Gastrointestinal: Negative. Genitourinary: Negative. Skin: Negative for rash. Neurological: Positive for headaches. Negative for dizziness, syncope, weakness, light-headedness and numbness. Psychiatric/Behavioral: Positive for agitation and decreased concentration. Negative for dysphoric mood, self-injury, sleep disturbance and suicidal ideas. The patient is nervous/anxious. All other systems reviewed and are negative. Objective BP 124/86 (BP Site: Left Arm, BP Position: Sitting) Pulse (!) 57 Resp 20 Ht 172.7 cm (5' 8) Wt 104 kg (229 lb 4.5 oz) SpO2 96% BMI 34.86 kg/m PAST MEDICAL HISTORY Diagnosis Date DDD (degenerative disc disease) Mixed anxiety and depressive disorder PAST SURGICAL HISTORY Procedure Laterality Date APPENDECTOMY KNEE ARTHROSCOPY Bone fragment. PAST SURGICAL HISTORY OF lumbar and cervical pain injections. No current outpatient medications on file prior to visit. No current facility-administered medications on file prior to visit. ALLERGIES Allergen Reactions Penicillins Rash Latex Rash Rash on hands with latex gloves Pepto-Bismol [Bismu* Rash Wool Rash Physical Exam Vitals and nursing note reviewed. Constitutional: General: He is awake. He is not in acute distress. Appearance: Normal appearance. He is well-developed. He is obese. He is not ill-appearing. HENT: Head: Normocephalic. Jaw: No tenderness or swelling. Eyes: General: Lids are normal. Conjunctiva/sclera: Conjunctivae normal. Pupils: Pupils are equal, round, and reactive to light. Cardiovascular: Rate and Rhythm: Normal rate and regular rhythm. Pulses: Normal pulses. Heart sounds: Normal heart sounds. Pulmonary: Effort: Pulmonary effort is normal. No respiratory distress. Breath sounds: Normal breath sounds. No decreased breath sounds or wheezing. Musculoskeletal: General: No swelling. Normal range of motion. Right lower leg: No edema. Left lower leg: No edema. Skin: General: Skin is warm and dry. Capillary Refill: Capillary refill takes less than 2 seconds. Findings: No rash. Neurological: General: No focal deficit present. Mental Status: He is alert and oriented to person, place, and time. Mental status is at baseline. Cranial Nerves: No cranial nerve deficit. Sensory: Sensation is intact. No sensory deficit. Motor: Motor function is intact. No weakness. Coordination: Coordination is intact. Gait: Gait is intact. Gait normal. Psychiatric: Attention and Perception: Attention and perception normal. Mood and Affect: Affect normal. Mood is anxious. Speech: Speech is rapid and pressured. Behavior: Behavior is hyperactive. Behavior is cooperative. Thought Content: Thought content normal. Thought content does not include homicidal or suicidal ideation. Cognition and Memory: Cognition and memory normal. Judgment: Judgment normal. ASSESSMENT/PLAN: 1. ANN (generalized anxiety disorder) - ICD9: 300.02, ICD10: F41.1 (primary diagnosis) - follow up in 4-6 weeks to discuss medication - SERTRALINE 25 MG TABLET- discussed use and side effects - COMPLETE BLOOD COUNT AND DIFFERENTIAL - COMPREHENSIVE METABOLIC PANEL 2. Headache, unspecified headache type - ICD9: 784.0, ICD10: R51.9 - bite guard d/t possible TMJ 3. Encounter to establish care - ICD9: V65.8, ICD10: Z76.89 - will est care here 4. Screening for prostate cancer - ICD9: V76.44, ICD10: Z12.5 - PSA/PROSTATE SPECIFIC ANTIGEN SCREENING 5. Screening for diabetes mellitus - ICD9: V77.1, ICD10: Z13.1 - HEMOGLOBIN A1C 6. Screening for colon cancer - ICD9: V76.51, ICD10: Z12.11 - COLOGUARD 7. Special screening examination for viral disease - ICD9: V73.99, ICD10: Z11.59 - HEPATITIS C ANTIBODY IA WITH CONFIRMATION 8. Screening for HIV (human immunodeficiency virus) - ICD9: V73.89, ICD10: Z11.4 - HIV 1/2 COMBO WITH REFLEX TO DIFFERENTIATION [facility], as needed or sooner if new or worsening symptoms. Debby Braun APRN.DENISE documented in this encounterOhiohealth04-24-2024 NoteHNO ID: [id number] Author: OTILIO CORONA MD Service: ? Author Type: Physician Type: Progress Notes Filed: 01/03/2024 14:04 Note Text: Patient presents with: Sore Throat: Cough, chest congestion, chest pain x 1 day HPI: Feeling sick for the last 2-3 days. Positive symptoms: Cough, Shortness of breath, Chest pain, palpitations, Sore throat, Feverish, Body Aches, Malaise, Negative symptoms: Vomiting, Diarrhea, acid brash, Nasal Congestion, OTC: Lozenges Chest pain: Duration: couple hours, started after eating Location: right lower chest Character: sharp Aggravating: not brought on by breathing Associated: current URI with throat tickling cough, feels like his breathing is labored and noticed palpitations since his chest pain started Pertinent negatives: Denies tenderness with palpation FHx is positive for mother with heart attacks and heart failure. PAST MEDICAL HISTORY Diagnosis Date DDD (degenerative disc disease) Mixed anxiety and depressive disorder MEDICATIONS: No current outpatient medications on file. No current facility-administered medications for this visit. ALLERGIES: ALLERGIES Allergen Reactions Penicillins Rash Latex Rash Rash on hands with latex gloves Pepto-Bismol [Bismu* Rash Wool Rash VITALS: BP 110/80 Pulse 105 Temp 36.4 ?C (97.6 ?F) Resp 21 Wt 103.2 kg (227 lb 8.2 oz) SpO2 98% BMI 34.59 kg/m? PHYSICAL EXAM: GEN: mildly ill appearing HEENT: PERRL, EOMI, conjunctiva clear Ears: canals clear. TMs without erythema, bulge, or effusion Sinuses: non-tender frontal sinus, non-tender maxillary sinuses Throat: moist mucous membranes, mild erythema, no exudate Neck: supple, no thyromegaly, no lymphadenopathy HEART: borderline fast rate and regular rhythm, no murmurs LUNGS: clear to auscultation, no wheezes or crackles, no increased WOB CHEST: no tenderness with palpation ABD: Soft, non-distended, non-tender, no masses ASSESSMENT/PLAN: 1. Sore throat - ICD9: 462, ICD10: J02.9 (primary diagnosis) - suspect viral URI - STREP A MOLECULAR (POC) - negative 2. Right-sided chest pain - ICD9: 786.50, ICD10: R07.9 3. SOB (shortness of breath) - ICD9: 786.05, ICD10: R06.02 4. Palpitations - ICD9: 785.1, ICD10: R00.2 Normal exam except for tachycardia. Cannot rule out acute coronary syndrome. He will have his [id number] drive him to [facility] ER for further chest pain evaluation. Otilio Corona, [facility]04-24-2024 History of Present illness Narrative* Otilio Corona MD - 01/03/2024 1:49 PM EDT Patient presents with: Sore Throat: Cough, chest congestion, chest pain x 1 day HPI: Feeling sick for the last 2-3 days. Positive symptoms: Cough, Shortness of breath, Chest pain, palpitations, Sore throat, Feverish, Body Aches, Malaise, Negative symptoms: Vomiting, Diarrhea, acid brash, Nasal Congestion, OTC: Lozenges Chest pain: Duration: couple hours, started after eating Location: right lower chest Character: sharp Aggravating: not brought on by breathing Associated: current URI with throat tickling cough, feels like his breathing is labored and noticedpalpitations since his chest pain started Pertinent negatives: Denies tenderness with palpation FHx is positive for mother with heart attacks and heart failure. PAST MEDICAL HISTORY Diagnosis Date DDD (degenerative disc disease) Mixed anxiety and depressive disorder MEDICATIONS: No current outpatient medications on file. No current facility-administered medications for this visit. ALLERGIES: ALLERGIES Allergen Reactions Penicillins Rash Latex Rash Rash on hands with latex gloves Pepto-Bismol [Bismu* Rash Wool Rash VITALS: BP 110/80 Pulse 105 Temp 36.4 C (97.6 F) Resp 21 Wt 103.2 kg (227 lb 8.2 oz) SpO2 98% BMI 34.59 kg/m PHYSICAL EXAM: GEN: mildly ill appearing HEENT: PERRL, EOMI, conjunctiva clear Ears: canals clear. TMs without erythema, bulge, or effusion Sinuses: non-tender frontal sinus, non-tender maxillary sinuses Throat: moist mucous membranes, mild erythema, no exudate Neck: supple, no thyromegaly, no lymphadenopathy HEART: borderline fast rate and regular rhythm, no murmurs LUNGS: clear to auscultation, no wheezes or crackles, no increased WOB CHEST: no tenderness with palpation ABD: Soft, non-distended, non-tender, no masses ASSESSMENT/PLAN: 1. Sore throat - ICD9: 462, ICD10: J02.9 (primary diagnosis) - suspect viral URI - STREP A MOLECULAR (POC) - negative 2. Right-sided chest pain - ICD9: 786.50, ICD10: R07.9 3. SOB (shortness of breath) - ICD9: 786.05, ICD10: R06.02 4. Palpitations - ICD9: 785.1, ICD10: R00.2 Normal exam except for tachycardia. Cannot rule out acute coronary syndrome. He will have his pvebvch-eg-rxl drive him to [facility] ER for further chest pain evaluation. Otilio Corona MD documented in this encounterMount Carmel ClinicDischarge summary Author Rodger [facility] Note Date/Time June 02, 2025 11:45am [facility] Medical Records Department [address] [place] [address] Emergency Department Summary 06/02/25 MR#: [id number] Acct: [id number] Name: SIDDHARTH KEYES Rep #:[id number] : 1975 50 From: Rodger Gaffney ggett DO PCP: Care Physician,No Primary Status :DEP ER Location: ED HPI History of Present Illness Chief Complaint: Flank Pain Narrative Narrative: Chief complaint and HPI: 50-year-old male with past medical history of urolithiasis presents for evaluation of right flank pain. Patient states he haspassed multiple kidney stones throughout his life. He has not followed with a urologist. Onset of right flank pain yesterday evening. Intermittent. Feels like his previous urolithiasis. Nausea only with pain. He denies any fever, chills, shortness of breath, chest pain, diarrhea, constipation, dysuria. Deniesany penile or testicular pain swelling, discharge. Review of systems: See HPI Medications: As listed on the chart Allergies: As listed on the chart PFSH: Per chart Vital signs: As listed on the chart. Reviewed. Physical exam: Gen: A&O x3, NAD Head: Normocephalic, atraumatic Eyes: No sclera icterus, conjunctiva clear ENT: Moist mucous membranes CV: RRR, no murmurs Resp: Lungs CTA BL, no w/r/c GI: Abd soft, non-distended, nontender, no r/r/g : No CVA tenderness Musc: Full ROM, no deformity Skin: Warm, dry Neuro: Alert, oriented, grossly intact, sensation intact Psych: Cooperative, appropriate mood and affect [facility] Medical History History of kidney stones Home Medications ?Medication ?Instructions ?Recorded ?Last Taken ?Type ibuprofen 200 mg tablet (Advil) 400 mg PO Q4H PRN feve r or pain 06/02/25 06/02/25 History levofloxacin 750 mg tablet 750 mg PO DAILY 7 days #7 t abs 06/02/25 Unknown Rx ondansetron 4 mg disintegrating 4 mg PO Q8H PRN PRN Na usea #10 tabs 06/02/25 Unknown Rx tablet oxycodone-acetaminophen 5 mg-325 1 tab PO Q6H PRN pain 3 days #12 06/02/25 Unknown Rx mg tablet (Percocet) tabs tamsulosin 0.4 mg capsule (Flomax) 0.4 mg PO DAILY 14 days #14 caps 06/02/25 Unknown Rx Allergy/AdvReac Type Severity Reaction Status Date / Time bismuth subsalicylate (From Allergy HEAT RASH Verified 06/02/25 07:31 Pepto-Bismol) latex Allergy Rash Verified 06/02/25 07:31 Penicillins Allergy HEAT RASH Verified 06/02/25 07:31 Surgical History Hx of neck surgery Social History Smoking Status: Current every day smoker tobacco type: cigarettes EXAM Physical Exam Const Vital Signs: 06/02/25 07:30 06/02/25 10:00 Temperature 96.9 F L Temperature Source Temporal Pulse Rate 78 89 Respiratory Rate 19 H 18 Blood Pressure 139/83 H 134/78 H Blood Pressure Mean 101 96 Pulse Ox 100 98 Oxygen Delivery Method Room Air Room Air MDM MDM MDM Narrative Medical decision making narrative: 50-year-old male with past medical history of urolithiasis presents for evaluation of right flank pain. Patient states he has passed multiple kidney stones throughout his life. He has not followed with a urologist. Onset of right flank pain yesterday evening. Intermittent. Feels like his previous urolithiasis. Differential diagnosis includes but is not limited to urolithiasis, nephrolithiasis, UTI, electrolyte abnormality, gastroenteritis. NS bolus, Zofran, Toradol ordered for symptoms. Laboratory workup ordered including CT abdomen pelvis without contrast. CBC without leukocytosis or anemia. BMP unremarkable without NILAM. UA positive for UTI. Urine culture sent. CT abdomen pelvis shows bilateral nephrolithiasis. Mild right hydronephrosis secondary to 0.5 cm stone in the proximal right ureter. I personally spoke with the radiologist about the read as he contacted me. On reevaluation, patient still having pain, morphine ordered. Pain improved with morphine. Patient is comfortable discharging home however given that this is a proximal stone that is 5 mm with UTI, will consult urology. Patient had a prolonged stay in our emergency department secondary to awaiting callback from urology. I do not have urology available in our hospital therefore I had to consult out to [facility]. Patient was discussed with the urologist, okay to follow-up outpatient. Agrees with antibiotics, pain medicine, Zofran, Flomax. Patient will be placed on a week of Levaquin. First dose given here. Return precautions explained. Follow-up with urology. He confirmed understand the plan. Patient able to discharge home. Patient did leave the emergency department prior to his discharge being written. I did personally contact him over the telephone. He states that he is upstairs as his mother is getting testing performed. He will come back down to obtain his paperwork. He is awarethat his prescriptions were sent. Impression: 1. Right proximal urolithiasis with mild hydronephrosis 2. History of urolithiasis 3. UTI Lab Data Labs: Laboratory Results - last 24 hr 06/02/25 06/02/25 08:09 08:39 WBC 10.3 RBC 4.36 L Hgb 14.2 Hct 41.0 MCV 94.0 MCH 32.6 H MCHC 34.6 RDW Std Deviation 45.1 H RDW Coeff of Darvin 13.1 Plt Count 271 MPV 8.9 Immature Gran % (Auto) 0.200 Neut % (Auto) 70.6 H Lymph % (Auto) 20.5 [place] % (Auto) 7.1 Eos % (Auto) 1.3 Baso % (Auto) 0.3 Absolute Neuts (auto) 7.3 Absolute Lymphs (auto) 2.12 Nucleated RBC % 0 Sodium 140 Potassium 4.5 Chloride 105 Carbon Dioxide 25.9 Anion Gap 9 BUN 19 Creatinine 1.10 Estim Creat Clear Calc 78.59 Est GFR (MDRD) Non-Af 82 BUN/Creatinine Ratio 17.0 Glucose 102 H Calcium 9.2 Urine Color Yellow Urine Clarity Sl. Cloudy Urine pH 6.5 Ur Specific Filer 1.015 Urine Protein 30 H Urine Glucose (UA) Normal Urine Ketones Negative Urine Occult Blood 250 H Urine Nitrite Negative Urine Bilirubin Negative Urine Urobilinogen Normal Ur Leukocyte Esterase 100 H Urine RBC 10-25 SEEN Urine WBC 5-10 SEEN Ur Squamous Epith Cells 0-5 SEEN Urine Bacteria 2+ Urine Mucus 2+ Radiography Diagnostic Testing: Clinical Impression(s) from Imaging Studies Abdomen/Pelvis CT 06/02/25 08:24 IMPRESSION: Bilateral nephrolithiasis. There is mild right hydronephrosis secondary to a 0.5 cm stone in the proximal right ureter, image 80/201. Critical results were discussed with Dr. Harris by Dr. Hawley at the time ofdictation. Reading Location: [facility] Discharge Plan Triage Chief Complaint: Flank Pain ED Provider: Rodger Cruz Dx/Rx/DC Orders Clinical Impression: Urolithiasis Instructions: ED Kidney Stone with Pain Prescriptions: New levofloxacin 750 mg tablet 750 mg PO DAILY 7 Days Qty: 7 0RF oxycodone-acetaminophen [Percocet] 5-325 mg tablet 1 tab PO Q6H PRN (Reason: pain) 3 Days Qty: 12 0RF tamsulosin [Flomax] 0.4 mg capsule 0.4 mg PO DAILY 14 Days Qty: 14 0RF ondansetron 4 mg tablet,disintegrating 4 mg PO Q8H PRN PRN (Reason: Nausea) Qty: 10 0RF No Action ibuprofen [Advil] 200 mg tablet 400 mg PO Q4H PRN (Reason: fever or pain) Primary Care Provider: Care Physician,No Primary Referrals: Tonny Henson MD [Med Staff - Active Staff, Urology] - 3-5 Days Evens Durbin MD [Med Staff - Active Staff, Family Practice] - 3-5 Days Activity Restrictions/Additional Instructions: Return back to the ED if symptoms change or worsen. You need to follow-up with your urologist. Take all of your antibiotic. Print Language: [place] Citizen Disposition Disposition: Home, Self Care Discharge Date/Time: 06/02/25 11:45 What to do if you have Problems For any increased pain, shortness of breath, bleeding, nausea or vomiting, chestpain, or any unexpected problems, contact your Primary Care Provider. Call [facility] ([phone]) or report to the closest Emergency Room. Call 911 if necessary. 06/02/25 1540 <Electronically signed by Rodger Cruz DO> Cosigner Signature (if applicable): CC: No Primary Care Physician ~ Signed [facility] Work Phone: Evaluation noteNo assessment information available [facility] Work Phone: Evaluation note* Diagnosis Pre-op evaluation- Primary Preoperative examination, unspecified [facility] Diagnosis Sore throat- Primary Acute pharyngitis Right-sided chest pain SOB (shortness of breath) Shortness of breath Palpitations documented in this encounter [facility] note* Diagnosis ANN (generalized anxiety disorder)- Primary Generalized anxiety disorder Headache, unspecified headache type Encounter to establish care Other reasons for seeking consultation Screening for prostate cancer Special screening for malignant neoplasm of prostate Screening for diabetes mellitus Screening for colon cancer Special screening for malignant neoplasms, colon Special screening examination for viral disease Special screening examination for unspecified viral disease Screening for HIV (human immunodeficiency virus) Special screening examination for other specified viral diseases [facility]* Diagnosis ANN (generalized anxiety disorder) Generalized anxiety disorder [facility] instructions Additional Instructions Foreign body noted 9 o'clock position left eye. Office will call you with time appointments show up today. You can go and wait there for your appointment also.[facility] Work Phone: Hospital Discharge instructionsAdditional Instructions Return back to the ED if symptoms change or worsen. You need to follow-up with your urologist. Take all of your antibiotic.[facility] Work Phone: Hospital Discharge instructionsAdditional Instructions Plenty of fluids Percocet for severe pain. Also use Motrin or ibuprofen. Flomax daily. Follow-up with the urologist if not getting better. Watch your urine to see if you passed a stone. Return if worsening pain or fever.[facility] Work Phone: Reason for referral (narrative)No reason for referral information availableWOhioHealth [facility] Work Phone: Summary Purpose Family History No Family History Records FoundNo Family History Records FoundNo Family History Records FoundNo Family History Records FoundNo Family History Records Found Advance Directives No Advanced Directives Records Found Advance Directive Response Recorded Date/ Time Living Will No April 03, 2022 6:54pm Power of Corporate Travel Consultant No April 03 6:54pm Advance Directive Response Recorded Date/ Time Living Will No June 08, 2022 4:56pm Power of Corporate Travel Consultant No May 4:56pm Advance Directive Response Recorded Date/ Time Living Will No July 11 11:09am Power of Corporate Travel Consultant No July 11, 2022 11:09am Advance Directive Response Recorded Date/ Time Living Will No September 28 10:08am Power of Corporate Travel Consultant No September 28, 2022 10:08am Latest Code Status on File Code Status Date Activated Date Inactivated Comments Full Code 11/06/2017 4:14 PM 11/10/2017 5:06 PM Code Status History Code Status Date Activated Date Inactivated Comments Full Code 11/24/2016 8:25 PM 11/25/2016 3:28 PM Advance Directive Response Recorded Date/ Time Do you have a Healthcare Power of Corporate Travel Consultant? No June 02, 2025 7:55am Do you have a Healthcare Power of Corporate Travel Consultant? No June 10, 2025 12:17pm Chief Complaint and Reason for Visit Chief Complaint abscess-thinks a spi nery bite Chief Complaint abscess-thinks a spi nery bite FLANK flank pain Chief Complaint abscess-thinks a spi nery bite FLANK flank pain EYE Chief Complaint FLANK flank pain EYE FLANK PAIN Chief Complaint Admit Date flank June 02, 2025 7:30am KIDNEY June 10, 2025 12:05pm Additional Source Comments (unrecognized sect ion and content) No Status Records FoundNo Status Records FoundNo Status Records FoundNo Status Records FoundNo Status Records Found INFORMATION SOURCE (unrecogn ized section and content) DATE CREATED AUTHOR 03/09/2018 [facility] ([place]) DATE CREATED AUTHOR AUTHOR'S ORGANIZ ATION 03/22/2019 [facility] DATE CREATED AUTHOR AUTHOR'S ORGANIZ ATION 10/21/2021 [facility] DATE CREATED AUTHOR AUTHOR'S ORGANIZ ATION 04/16/2024 [facility] DATE CREATED AUTHOR AUTHOR'S ORGANIZ ATION 06/15/2025 [facility] Goals (unrecognized section and content) Goals may be documented in a n alternate sectionGoals may be documented in an alternate sectionGoals may be documented in an alternate sectionGoals may be documented in an alternate sectionGoals may be documented in an alternate sectionGoals may be documented in an alternate section Care Teams (unrecognized sec tion and content) Team Status: Active Member Role Status Dates No Primary Care Physician Family Provider Active No Primary Care Physician Primary Care Provider Active Team Status: Inactive Member Role Status Dates No Primary Care Physician Primary Care Provider Active Dr. George Covarrubias MD Attending Provider, Emergency Pro vider Active Team Status: Inactive Member Role Status Dates No Primary Care Physician Primary Care Provider Active Dr. Yolis Reynoso , Attending Provider, Emergency Pro vider Active Team Status: Inactive Member Role Status Dates No Primary Care Physician Primary Care Provider Active Dr. Sheldon Oconnor , DO Attending Provider, Emergency Provide r Active Team Status: Inactive Member Role Status Dates No Primary Care Physician Primary Care Provider Active Dr. Luis Alberto Chester , DO Emergency Provider Active Orthophotography Technician Relationship Specialty Start Date End Date Trinidad Saavedra, SISTER SUPERIOR [address] [place] [id number] PCP - General Family Medicine 01/28/15 Orthophotography Technician Relationship Specialty Start Date End Date Trinidad Saavedra, SISTER SUPERIOR [address] [place] [id number] PCP - General Family Medicine 01/28/15 Team Status: Active Member Role/Relationship Status Dates No Primary Care Physician Primary care physician Activ e Team Status: Inactive Member Role/Relationship Status Dates No Primary Care Physician Primary care physician Activ e Start: June 02, 2025 End: June 02, 2025 Dr. Rodger Cruz , Attending physician Active Start: May End: June 02, 2025 Dr. Rodger Cruz DO Emergency Department Physician Active Start: June 02, 2025 End: June 02, 2025 Team Status: Inactive Member Role/Relationship Status Dates No Primary Care Physician Primary care physician Activ e Start: June 10, 2025 End: June 10, 2025 Dr. George Covarrubias MD Emergency Departmen t Physician Active Start: June 10, 2025 End: June 10, 2025 Source Comments (unrecognize d section and content) In the event this informatio n is protected by the Federal Confidentiality of Alcohol and Drug Abuse Patient Records regulations: The Federal rules restrict any use of the information to criminally investigate or prosecute any alcohol or drug abuse patient.[facility]healthIn the event this information is protected by the Federal Confidentiality of Alcohol and Drug Abuse Patient Records regulations: The Federal rules restrict any use of the information to criminally investigate or prosecute any alcohol or drug abuse patient.[facility]healthIn the event this information is protected by the Federal Confidentiality of Alcohol and Drug Abuse Patient Records regulations: The Federal rules restrict any use of the information to criminally investigate or prosecute any alcohol or drug abuse patient.OhiohealthIn the event this information is protected by the Federal Confidentiality of Alcohol and Drug Abuse Patient Records regulations: The Federal rules restrict any use of the information to criminally investigate or prosecute any alcohol or drug abuse patient.[facility] Reason for Visit (unrecogniz ed section and content) Reason Comments Sore Throat Cough, chest congest ion, chest pain x 1 day Specialty Diagnoses / Procedures Referred By Cathryn t Referred To Contact [facility] Diagnoses cough, congestion, sore throat, chest pain x 1 day Procedures EST SAME DAY Self [facility] [address] [place] [address] Referral ID Status Reason Start Date Expiration Date Visits Requested Visits Authorized [id number] Pending Review Financial Clearance Required - Self Pay 01/03/2024 04/02/2024 1 1 Reason Comments Consult Discuss medications, headaches, anxiety to establish care Reason Comments Appointment FOR RECORDS PERTAINING TO PATIENTS WHO ARE OR HAVE BEEN ENROLLED IN A CHEMICAL DEPENDENCY/SUBSTANCEABUSE PROGRAM, SOME INFORMATION MAY BE OMITTED. This clinical summary was aggregated from multiple sources. Caution should be exercised in using it in the provision of clinical care. This summary normalizes information from multiple sources, and as a consequence, information in this document may materially change the coding, format and clinical context of patient data. In addition, data may be omitted in some cases. CLINICAL DECISIONS SHOULD BE BASED ON THE PRIMARY CLINICAL RECORDS. [facility] [employer] [facility]. provides no warranty or guarantee of the accuracy or completeness of information in this document.
[2025-06-16 05:34] VITALS: BP 127/94; PULSE 120; RESP 18; TEMP 36.6; O2SAT 100
--- NOTE | 2025-06-16 05:55 | EX.ED.DYSGE1 ---
HPI History of Present Illness Chief Complaint: Flank Pain Informant: patient Narrative Narrative: Patient is a 50-year-old male with history of kidney stones presenting via police for evaluation. Per police report patient was trespassing at [facility] (where his mother lives and he is the POA per patient). Please state he is not allowed to live there. He states that he could not get his medications which are in his mother's apartment there. He is requesting a refill for his Flomax. He is quite irate about the situation however he really does not have a lot of medical complaints to me evaluate right now. [facility] Medical History History of kidney stones Home Medications ?Medication ?Instructions ?Recorded ?Last Taken ?Type ibuprofen 200 mg tablet (Advil) 400 mg PO Q4H PRN fever or pain 06/02/25 06/02/25 History levofloxacin 750 mg tablet 750 mg PO DAILY 7 days #7 tabs 06/02/25 Unknown Rx ondansetron 4 mg disintegrating 4 mg PO Q8H PRN PRN Nausea #10 tabs 06/02/25 Unknown Rx tablet oxycodone-acetaminophen 5 mg-325 1 tab PO Q6H PRN pain 3 days #12 06/02/25 Unknown Rx mg tablet (Percocet) tabs tamsulosin 0.4 mg capsule (Flomax) 0.4 mg PO DAILY 14 days #14 caps 06/02/25 Unknown Rx oxycodone-acetaminophen 7.5 mg-325 1 tab PO Q8H PRN pain 3 days #12 06/10/25 Unknown Rx mg tablet (Percocet) tabs tamsulosin 0.4 mg capsule (Flomax) 0.4 mg PO DAILY #14 caps 06/16/25 Unknown Rx Allergy/AdvReac Type Severity Reaction Status Date / Time bismuth subsalicylate (From Allergy HEAT RASH Verified 06/16/25 04:46 Pepto-Bismol) latex Allergy Rash Verified 06/16/25 04:46 Penicillins Allergy HEAT RASH Verified 06/16/25 04:46 Family History no significant family his Surgical History Hx of neck surgery Social History Smoking Status: Current every day smoker tobacco type: cigarettes ROS ROS ED Constitutional Constitutional ED: Reports sweats; Denies chills or fever(s) Respiratory/Chest Respiratory/Chest: Denies cough Gastrointestinal Gastrointestinal: Denies abdominal pain Genitourinary Genitourinary ED: Denies dysuria Musculoskeletal Musculoskeletal: Reports back pain Psychiatric Psychiatric: Reports anxiety; Denies suicidal ideation or suicidal thoughts Hematologic/Lymphatic Hematologic/Lymphatic: Denies easy bleeding or easy bruising EXAM Physical Exam Const Vital Signs: 06/16/25 04:46 06/16/25 05:34 Temperature 97.8 F 97.8 F Temperature Source Oral Pulse Rate 113 H 120 H Respiratory Rate 18 18 Blood Pressure 140/97 H 127/94 H Blood Pressure Mean 111 105 Pulse Ox 98 100 Oxygen Delivery Method Room Air Positive well nourished and well developed General Appearance ED: well developed and NAD; Negative for pallor HEENT Reports dry mucous membranes Mouth ED: Yes dry mucous membranes Mouth: dry mucous membranes Eyes PERRL Neck supple Neck Narrative: Normal range of motion of the neck Chest Wall inspection of chest normal and palpation of chest normal Resp normal respiratory effort and clear to auscultation bilaterally Cardio regular rate and regular rhythm GI normal to inspection, nondistended, normoactive bowel sounds and non-tender Back/Spine no CVA tenderness Extremity normal to inspection Neuro oriented x3 Sensorium / Orientation: alert Motor Exam: Negative for general weakness Psych Attitude: agitated Mood & Affect: anxious Skin no wounds General Skin Exam: Negative for pallor MDM MDM MDM Narrative Medical decision making narrative: While he is agitated he understands why he is here, what is going on and he just states he wants some water. He does state he got off work earlier today and was doing a lot of walking (for about 6 hours). Concern for possible rhabdomyolysis considering how agitated he is. He adamantly denies any drug use. I did order for renal function (given his recent kidney stone) and CPK level however patient declined stating he just wants his Flomax. At this time I do not think he needs emergent psychiatric evaluation for his agitation. Patient ambulates out of the emergency room. Encouraged to return should he change his mind. Encouraged follow-up with urology as well as primary care. Given referral for these. Discharge Plan Triage Chief Complaint: Flank Pain ED Provider: Marcia Adams Dx/Rx/DC Orders Clinical Impression: Kidney stone on right side, Medication refill Prescriptions: New tamsulosin [Flomax] 0.4 mg capsule 0.4 mg PO DAILY Qty: 14 0RF No Action ibuprofen [Advil] 200 mg tablet 400 mg PO Q4H PRN (Reason: fever or pain) levofloxacin 750 mg tablet 750 mg PO DAILY 7 Days Qty: 7 0RF oxycodone-acetaminophen [Percocet] 5-325 mg tablet 1 tab PO Q6H PRN (Reason: pain) 3 Days Qty: 12 0RF tamsulosin [Flomax] 0.4 mg capsule 0.4 mg PO DAILY 14 Days Qty: 14 0RF ondansetron 4 mg tablet,disintegrating 4 mg PO Q8H PRN PRN (Reason: Nausea) Qty: 10 0RF oxycodone-acetaminophen [Percocet] 7.5-325 mg tablet 1 tab PO Q8H PRN (Reason: pain) 3 Days Qty: 12 0RF Primary Care Provider: Care Physician,No Primary Referrals: Tonny Henson MD [Med Staff - Active Staff, Urology] Care Physician,No Primary [Primary Care Provider, Medical] Hank Morales NP-C [[facility], Family Practice] Activity Restrictions/Additional Instructions: Make sure you are drinking plenty of fluids over the next 24 hours. Your urine should be mostly clear. If you have worsening symptoms do not think you can calm down please return to the emergency room. Please follow-up with family medicine as well as urology, if you do not have the specialties you been given information for family medicine practice as well as a urologist. Print Language: Lithuanian Disposition Disposition: Home, Self Care Discharge Date/Time: 06/16/25 06:00
== END 2025-06-16 06:00 | disposition home or self-care (01) ==
PROVIDERS: Emergency Provider Emergency Medicine; Visit Provider Emergency Medicine
DX: N20.0 Calculus of kidney (principal); F17.210 Nicotine dependence, cigarettes, uncomplicated; Z79.899 Other long term (current) drug therapy; Z76.0 Encounter for issue of repeat prescription
CPT/HCPCS: 99282